=== PATIENT | female | born 1960 | race Caucasian/White ===

== ENCOUNTER 2018-03-18 19:01 | Observation (INO) | payer OTHER ==
--- NOTE | 2018-03-18 19:38 | ED ---
Neurological HPI - HPI Summary HPI Summary: This is hadley, Irvin Enriquez, documenting for attending Dr. Domenico MD. A 57 y/o F presents to ED with RLE weakness and R hand weakness onset this AM. She states it hasn't worsened or improved. Pt took an aspirin [employer]. Associated sx : R-sided numbness, bilat LE edema onset August. Denies any pain with the numbness/weakness, VALDEZ, neck pain, back pain, dizziness, vomiting. Pt is R hand dominant. She's been using her left hand for her ADL. She also notes feeling "foggy" for past few months. She is scheduled for hip surgery in 3 weeks at [facility]. I, Dr. Acuña, personally performed the services described in this documentation as scribed in my presence and it is both accurate and complete. - History of Current Complaint Chief Complaint: EDNeurologicalDeficit Stated Complaint: RT HAMD NUMBNESS/RT SIDE WEAKNESS Time Seen by Provider: 03/18/18 19:29 Hx Obtained From: Patient Onset/Duration: Started hours ago - this AM, Still Present Timing: Constant Onset Severity: Moderate Current Severity: Moderate Pain Intensity: 0 Pain Scale Used: 0-10 Numeric Character: Weak, Numbness/Tingling - Allergy/Home Medications Allergies/Adverse Reactions: Allergies Allergy/AdvReac Type Severity Reaction Status Date / Time Iodinated Contrast- Oral and AdvReac sweating, Verified 03/18/18 22:34 IV Dye nausea ENVIRONMENTAL/ SEASONAL Allergy CONGESTION, Uncoded 02/03/17 08:37 RUNNY NOSE LATEX SENSITIVITY Allergy SKIN Uncoded 03/18/18 22:34 IRRITATION WITH PROLONG USE CLEANING CHEMICALS AdvReac SKIN GETS Uncoded 03/18/18 22:34 ENRIQUE Home Medications: Home Medications Liothyronine TAB* [Cytomel TAB*] 5 mcg PO DAILY 03/18/18 [History Confirmed 05/26] PMH/Surg Hx/FS Hx/Imm Hx Previously Healthy: No Endocrine/Hematology History: Reports: Hx Thyroid Disease - PIPER'S DISEASE Denies: Hx Diabetes Cardiovascular History: Reports: Hx Angina, Other Cardiovascular Problems/ Disorders - TEST DONE FOR CHEST PAIN, NO PROBLEMS DETECTED, HAVE SEEN DR. ALSTON Denies: Hx Coronary Artery Disease, Hx Hypercholesterolemia, Hx Hypertension , Hx Myocardial Infarction, Hx Pacemaker/ICD, Hx Valvular Heart Disease Respiratory History: Reports: Other Respiratory Problems/Disorders - UNABLE TO SLEEP ON BACK - WAKE UP GASPING FOR AIR Denies: Hx Asthma, Hx Chronic Obstructive Pulmonary Disease (COPD) History: Denies: Hx Renal Disease Musculoskeletal History: Reports: Hx Arthritis - OSTEOARTHRITIS, HANDS AND FINGER, Hx Scoliosis, Other Musculoskeletal History - MUSCLE PAIN IN BACK FOR OVER 10 YEARS Denies: Hx Rheumatoid Arthritis, Hx Osteoporosis Sensory History: Reports: Hx Cataracts - BILATERAL, Hx Contacts or Glasses - GLASSES Denies: Hx Hearing Aid Opthamlomology History: Reports: Hx Cataracts - BILATERAL, Hx Contacts or Glasses - GLASSES Neurological History: Denies: Hx Headaches, Other Neuro Impairments/Disorders Psychiatric History: Reports: Hx Anxiety - STRESS FACTORS Denies: Hx Panic Disorder - Cancer History Hx Chemotherapy: No Hx Radiation Therapy: No - Surgical History Surgery Procedure, Year, and Place: BROKEN ANKLE RIGHT-WITH HARDWARE 2013 Hx Anesthesia Reactions: No Infectious Disease History: Denies: Traveled Outside the [place] in Last 30 Days - Family History Known Family History: Positive: Cardiac Disease - CAD - Social History Occupation: Disabled Lives: Alone Hx Substance Use: No Substance Use Type: Reports: None Review of Systems Negative: Vomiting Positive: Edema - bilat LE. Negative: Arthralgia, Myalgia Neurological: Other - neg: dizziness Positive: Weakness - RLE and R hand, Numbness - RLE and R hand. Negative: Headache All Other Systems Reviewed And Are Negative: Yes Physical Exam - Summary Physical Exam Summary: Appearance: Well-appearing, Well-nourished, lying in bed comfortably Skin: Warm, dry, no obvious rash Eyes: sclera anicteric, no conjunctival pallor ENT: mucous membranes moist, pharynx appears normal Neck: Supple, nontender Respiratory: Clear to auscultation, no signs of respiratory distress Cardiovascular: Normal S1, S2. No murmurs. Normal distal pulses in tibial and radial bilaterally. Abdomen: Soft, nontender, normal active bowel sounds present Musculoskeletal: Weakness of RUE from shoulder to elbow and hand, lifts against gravity some distance in the shoulder and hand, but is definitely weaker than on the L. Could not detect any change in her gait. No ataxia. Slight weakness of R hip flexors compared to the L. Deep tendon reflexes at knees and elbows are 2+ and symmetrical. No hyperflexity. Neurological: A&Ox3, awake and alert, mentation is normal, speech is fluent and appropriate. Weakness of RUE from shoulder to elbow and hand, lifts against gravity some distance in the shoulder and hand, but is definitely weaker than on the L. Could not detect any change in her gait. No ataxia. Slight weakness of R hip flexors compared to the L. Deep tendon reflexes at knees and elbows are 2+ and symmetrical. No hyperflexity. Psychiatric: affect is normal, does not appear anxious or depressed Triage Information Reviewed: Yes Vital Signs On Initial Exam: Initial Vitals Temp Pulse Resp BP Pulse Ox 99.3 F 60 16 169/74 99 03/18/18 19:12 03/18/18 19:12 03/18/18 19:12 03/18/18 19:12 03/18/18 19:12 Vital Signs Reviewed: Yes - Theresa Coma Scale Best Eye Response: 4 - Spontaneous Best Motor Response: 6 - Obeys Commands Best Verbal Response: 5 - Oriented Coma Scale Total: 15 Diagnostics - Vital Signs Vital Signs Temp Pulse Resp BP Pulse Ox 03/18/18 19:12 99.3 F 60 16 169/74 99 - Laboratory Result Diagrams: 03/18/18 20:14 03/18/18 20:15 Lab Statement: Any lab studies that have been ordered have been reviewed, and results considered in the medical decision making process. - CT Head CT CT Interpretation: No Acute Changes - IMPRESSION: No intracranial mass effect, hemorrhage or acute large territory infarct. ED physician has reviewed this radiology report. CT Interpretation Completed By: Radiologist - Additional Comments Diagnostic Additional Comments: EKG at 2022: Sinus maged at 50BPM, P waves, QRS complex, and T waves are within normal limits , T waves and intervals are normal, no ischemic changes. This is a normal EKG. Re-Evaluation - Re-Evaluation 1 Re-Evaluation Time: 21:52 Comment: Discussing plans to admit with pt. Course/Dx - Course Course Of Treatment: This is a 57-year-old woman with acute onset of weakness of the right arm and right leg, more so the arm. This was awake of stroke approximately 10 hours prior to presentation here so she certainly is not eligible for TPA. 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 - Differential Dx Differential Diagnoses Neuro: Positive: Cerebrovascular Accident, Intracranial Bleed, Transient Ischemic Attack - Diagnoses Provider Diagnoses: CVA (cerebral vascular accident) - Physician Notifications Discussed Care Of Patient With: Sonu Ramey - neuro Time Discussed With Above Provider: 21:16 Instructed by Provider To: Admit As Inpatient - and get MRI in AM. Discharge - Sign-Out/Discharge Documenting (check all that apply): Patient Departure - ADM - Discharge Plan Condition: Fair Disposition: ADMITTED TO [facility] - Billing Disposition and Condition Condition: FAIR Disposition: Admitted to [facility]
--- OUTSIDE RECORDS SUMMARY | 2018-03-18 20:16 | XMS REPORT ---
:1960 External Reference #:[id number] Author Organization [employer] Address [address] [place] [address] [place] [address] Phone [phone] Care Team Providers Name Role Phone Deepika Mazariegos MD Primary Care Physician Unavailable Payers Type Date Identification Numbers Payment Provider Subscriber Commercial Effective: Policy Number: [id number] Nico Hurley 2011 Group Number: [id number] [address] PayID: [id number] [place] [address] Problems Date Description Provider Status Onset: 08/12/2011 Disorder of breast Allie Marquez M.D. Active Note: noted on 08/2011 mammo, needs repeat in 01/2012 Onset: 08/28/2011 Hypothyroidism Allie Marquez M.D. Active Onset: 09/02/2011 Impaired fasting glycaemia Allie Marquez M.D. Active Onset: 09/02/2011 Hypo-osmolality and or hyponatremia Allie Marquez M.D. Active Onset: 01/13/2012 Spasm Allie Marquez M.D. Active Onset: 01/13/2012 Subjective tinnitus Allie Marquez M.D. 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 Family History Date Family Member(s) Problem(s) Comments General Psoriasis Father due to Diabetes () Father due to Hypertension () Father due to CAD () Father due to Dementia () Father due to His father had OA () and one leg shorter than the other Mother due to Hypertension () Mother due to Dementia () - starting in late 60s Mother due to afib () Mother due to Her mother had OA () and her mother had neck surgery Siblings 5 Social History Type Date Description Comments Marital Status Single Lives With Alone ETOH Use Denies alcohol use Smoking Patient is a former smoker Recreational Drug Use Denies Drug Use Daily Caffeine Consumes on average 2 cups of regular coffee per day Exercise Type/Frequency Does not exercise Due to hip pain General Hx Text lives alone no drugs Allergies, Adverse Reactions, Alerts Date Description Reaction Status Severity Comments 07/15/2011 contrast dye active Medications Medication Date Status Form Strength Qnty SIG Indications Ordering Provider Multivitamins 0000/ Active Tablets 1 po qd Unknown 0000 Levothyroxine / Active Tablets 112mcg 1 by Unknown Sodium 0000 mouth every day Liothyronine / Active Tablets 5mcg take 1 Unknown Sodium 0000 tablet every morning Calcium / Active 1/2 tab Unknown 0000 by mouth twice daily Magnesium / Active Tablets 1 by Unknown 0000 mouth every day Vitamin D / Active Tablets 1 tab by Unknown 0000 mouth everyday Levothyroxine 12/14/ Hx Tablets 112mcg 1 by Nilda Sodium 2017 - mouth Cotton, 12/14/ every day M.D. 2016 Diclofenac Sodium 12/14/ Hx Tablets DR 75mg 180ta take one M85.89 Ok 2017 - bs capsule/t Nadege, 11/21/ ablet by M.DPoly 2018 mouth twice daily as needed for pain, avoid other nsaids Doxycycline 02/06/ Hx Tablets 100mg 20tab 1 by Simi Hernandez 2013 - s mouth Antonio, 12/14/ twice a M.D. 2016 day Azithromycin 11/13/ Hx Tablets 250mg 6tabs two tabs Allie 2013 - day one, Marquez, 01/24/ one daily M.D. 2013 till gone Proair HFA 11/07/ Hx Aerosol 108(90Bas 1unit two puffs 786.2 Allie 2013 - ) s every 4 Marquez, 01/24/ mcg/Act hours as M.D. 2013 needed for wheeze and chest tightness . Aspirin Ec 07/26/ Hx Tablets DR 325mg 90tab 1 po qd Allie 2012 - s prn Jimmy, 12/14/ M.D. 2016 Cyclobenzaprine 07/26/ Hx Tablets 5mg 30tab take 1-2 728.85 Nilda HCL 2012 - tablet by Govind, 12/14/ mouth at M.D. 2016 night as needed Oxycodone HCL 03/24/ Hx Tablets 5mg 60tab 1-2 po q Braeden 2012 - s 4-6 hrprn Nitesh, 07/26/ pain M.D. 2012 Meloxicam 03/10/ Hx Tablets 7.5mg 60tab 1 po bid Allie 2012 - s as needed Jimmy, 01/24/ for pain M.D. 2013 Levothyroxine 02/01/ Hx Tablets 100mcg 90tab 1 by Nilda Sodium 2012 mouth Cotton, 12/14/ every day M.D. 2016 Cosyntropin 12/07/ Hx Solution 0.25mg/ml 1ml 250mcg Allie 2012 - IV/Im Marquez, 02/01/ once M.D. 2012 Azithromycin 08/01/ Hx Tablets 250mg 6tabs two tabs 466.0 Marilee 2011 - day one, , 12/02/ one daily M.D., FACP 2013 till gone Flovent HFA 08/01/ Hx Aerosol 44mcg/Act 1unit 2 puffs 466.0 Marilee 2011 - s twice Macie, 12/02/ daily for M.D., FACP 2013 10 days Guaifenesin ac 08/01/ Hx Syrup 100-10mg/ 100cc 1 tsp by 466.0 Marilee 2011 - 5ML mouth Macie, 12/02/ every day M.D., FACP 2013 every night as needed Erythromycin 07/15/ Hx Ointment 5mg/GM 3.500 apply to 373.11 Allie 2012 - gm eyelid Marquez, 07/26/ four M.D. 2012 times daily for 5 days. prn Levothyroxine 04/08/ Hx Tablets 88mcg 30tab 1 po qd Allie Sodium 2011 - s Marquez, 02/01/ M.D. 2012 Cyclobenzaprine 09/02/ Hx Tablets 5mg 30tab take 1-2 728.85 Allie HCL 2011 - tablet by Jimmy, 01/12/ mouth at M.D. 2011 night as needed Levothyroxine / Hx Tablets 50mcg 39tab 1 1/2 po Allie Sodium 0000 - s shanice Marquez, 04/08/ times a M.D. 2011 week, and 1 po three times a week Fish Oil 00/00/ Hx Capsules 1000mg 30cap 2-3 po qd Unknown 0000 - s 2016 Glucosamine And 00/00/ Hx Capsules 1500/1200 2 po qd Unknown Chondrotin 0000 - mg 2011 Ibuprofen 00/00/ Hx Capsules 200mg prn Unknown - 2012 Glucosamine 00/00/ Hx Capsules 1500Com 1 po qd Unknown Chondroitin 1500 0000 - Complex 2013 Magnesium /00/ Hx Capsules 1 po qd Unknown 0000 - 2012 Percocet 00/ Hx Tablets 5-325mg 60tab 1-2 po Unknown 0000 - s q4-6h prn 2012 Synthroid /00/ Hx Unknown - 2013 Ibuprofen /00/ Hx Tablets 400mg 1 by M85.89 Unknown 0000 - mouth 2017 times a day with food as needed Immunizations CPT Code Status Date Vaccine Reaction Lot # [id number] Given 05/31/2017 Influenza Virus Vaccine, no immediate reaction [id number] Quadrivalent, Split, noted Preservative Free [id number] Given 07/26/2013 Flu Vaccine Split Virus [id number] Preservative Free For Indiv 3Yr Older 17088 Given 05/18/2012 Influenza Virus 3Yrs & Over [id number] Given 07/15/2011 Tdap - [id number] Tetanus/Diptheria/Acellula r Pertussis 06103 Given 07/15/2011 Influenza Virus 3Yrs & [id number] Over Vital Signs Date Vital Result Comment 03/09/2018 Height 65 inches 5'5" Weight 129.25 lb W/ Shoes Heart Rate 62 /min BP Systolic Sitting 144 mmHg Lue Reg Cuff BP Diastolic Sitting 72 mmHg Lue Reg Cuff BMI (Body Mass Index) 21.5 kg/m2 Ejection Fraction 50-55% ECHO 12/04/17 03/07/2018 Height 65 inches 5'5" Weight 125.00 lb Heart Rate 56 /min BP Systolic 140 mmHg BP Diastolic 76 mmHg BMI (Body Mass Index) 20.8 kg/m2 01/05/2018 Height 65.5 inches 5'5.50" Weight 129.38 lb no shoes Heart Rate 64 /min BP Systolic Sitting 168 mmHg lue reg cuff BP Diastolic Sitting 92 mmHg lue reg cuff BMI (Body Mass Index) 21.2 kg/m2 Ejection Fraction 50-55% echo 11/30/2017 11/22/2017 Height 65.5 inches 5'5.50" Weight 132.00 lb w/boots Heart Rate 66 /min BP Systolic Sitting 172 mmHg LA reg cuff BP Diastolic Sitting 88 mmHg LA reg cuff BMI (Body Mass Index) 21.6 kg/m2 Ejection Fraction 50-55% Stress Test 07/14/12 05/31/2017 Height 65.5 inches 5'5.50" Weight 139.00 lb Heart Rate 55 /min BP Systolic Sitting 157 mmHg BP Diastolic Sitting 78 mmHg Respiratory Rate 14 /min Pain Level 4 BMI (Body Mass Index) 22.8 kg/m2 03/08/2017 Height 65.5 inches 5'5.50" Weight 143.00 lb Heart Rate 60 /min BP Systolic 122 mmHg BP Diastolic 74 mmHg Respiratory Rate 15 /min Body Temperature 97.6 F Pain Level 3 BMI (Body Mass Index) 23.4 kg/m2 12/28/2016 Height 65 inches 5'5" Heart Rate 52 /min BP Systolic Sitting 120 mmHg BP Diastolic Sitting 80 mmHg Respiratory Rate 14 /min 12/14/2016 Height 65 inches 5'5" Weight 140.12 lb Heart Rate 52 /min BP Systolic Sitting 114 mmHg BP Diastolic Sitting 74 mmHg Respiratory Rate 14 /min BMI (Body Mass Index) 23.3 kg/m2 01/24/2014 Height 65 inches 5'5" Weight 137.00 lb Heart Rate 60 /min BP Systolic Sitting 142 mmHg BP Diastolic Sitting 86 mmHg Body Temperature 97.5 F BMI (Body Mass Index) 22.8 kg/m2 11/07/2013 Weight 141.00 lb Heart Rate 86 /min BP Systolic Sitting 118 mmHg BP Diastolic Sitting 70 mmHg Respiratory Rate 15 /min Body Temperature 98.7 F 09/29/2013 Height 65 inches 5'5" Weight 136.00 lb Heart Rate 55 /min BP Systolic 144 mmHg BP Diastolic 80 mmHg BMI (Body Mass Index) 22.6 kg/m2 07/26/2013 Weight 137.50 lb Heart Rate 60 /min BP Systolic 160 mmHg BP Diastolic 88 mmHg 03/17/2013 Heart Rate 58 /min BP Systolic Sitting 138 mmHg BP Diastolic Sitting 80 mmHg 03/10/2013 Weight 140.00 lb Heart Rate 60 /min BP Systolic Sitting 140 mmHg BP Diastolic Sitting 80 mmHg 02/01/2013 Weight 142.75 lb Heart Rate 56 /min BP Systolic Sitting 130 mmHg BP Diastolic Sitting 60 mmHg 12/19/2012 Weight 143.00 lb Heart Rate 56 /min BP Systolic Sitting 124 mmHg BP Diastolic Sitting 72 mmHg 12/02/2012 Weight 145.00 lb Heart Rate 58 /min BP Systolic Sitting 122 mmHg BP Diastolic Sitting 74 mmHg 08/01/2012 Height 65 inches 5'5" Weight 146.00 lb Heart Rate 56 /min BP Systolic Sitting 134 mmHg BP Diastolic Sitting 82 mmHg BMI (Body Mass Index) 24.3 kg/m2 07/15/2012 Height 65 inches 5'5" Weight 144.00 lb Heart Rate 54 /min BP Systolic Sitting 120 mmHg BP Diastolic Sitting 78 mmHg BMI (Body Mass Index) 24.0 kg/m2 05/18/2012 Height 65 inches 5'5" Weight 142.00 lb Heart Rate 70 /min BP Systolic Sitting 128 mmHg BP Diastolic Sitting 76 mmHg BMI (Body Mass Index) 23.6 kg/m2 04/08/2012 Height 65 inches 5'5" Weight 139.00 lb Heart Rate 74 /min BP Systolic Sitting 118 mmHg BP Diastolic Sitting 72 mmHg BMI (Body Mass Index) 23.1 kg/m2 03/18/2012 Height 65 inches 5'5" Weight 134.00 lb Heart Rate 58 /min 47at rest, 57 excerise BP Systolic Sitting 152 mmHg BP Diastolic Sitting 60 mmHg O2 % BldC Oximetry 100 % BMI (Body Mass Index) 22.3 kg/m2 01/13/2012 Height 65 inches 5'5" Weight 146.00 lb Heart Rate 74 /min BP Systolic Sitting 120 mmHg BP Diastolic Sitting 70 mmHg BMI (Body Mass Index) 24.3 kg/m2 09/02/2011 Height 65 inches 5'5" Weight 146.00 lb Heart Rate 64 /min BP Systolic Sitting 124 mmHg BP Diastolic Sitting 62 mmHg BMI (Body Mass Index) 24.3 kg/m2 07/15/2011 Height 65 inches 5'5" Weight 141.75 lb Heart Rate 64 /min BP Systolic Sitting 128 mmHg L BP Diastolic Sitting 82 mmHg L BMI (Body Mass Index) 23.6 kg/m2 Results Test Date Test Result H/L Range Note Xray 03/07/2018 MRI Lumbar Spine W/O <pending> Laboratory test finding 05/17/2017 C Reactive Protein < 1.00 mg/L < 5.00 1 Hla B27 12/14/2016 Hla B27 Negative 2 Hla B27 Interp See Comment 3 Laboratory test finding 12/14/2016 C Reactive Protein < 1.00 mg/L < 5.00 4 Cyclic Citrullinated Pep Igg <15.6 U 5 Rheumatoid Factor <15 IU/mL <15 6 Uric Acid 4.7 mg/dL 2.3-6.6 7 Erythrocyte Sed Rate 27 mm/Hr 0-30 8 Cardiolipin Igg/Igm 12/14/2016 Phospholipid Ab IgM, S < 9.4 MPL 9 Phospholipid Ab IgG < 9.4 GPL 10 Laboratory test finding 01/25/2014 Hemoglobin A1c 6.0 % Less than 6.0 11 TSH (Thyroid Stimulating Horm) 1.73 IU/mL 0.34-5.60 Basic Metabolic Panel 01/25/2014 Sodium 136 mmol/L 133-145 Potassium 3.7 mmol/L 3.7-5.6 Chloride 102 mmol/L 101-111 Co2 Carbon Dioxide 29 mmol/L 22-32 Anion Gap 5 mmol/L 2-11 Glucose 89 mg/dL 70-100 Blood Urea Nitrogen 19 mg/dL 6-24 Creatinine 0.69 mg/dL 0.51-0.95 BUN/Creatinine Ratio 27.5 High 8-20 Calcium 9.4 mg/dL 8.6-10.3 Egfr Non- 88.3 >60 Egfr 113.6 >60 12 Laboratory test finding 04/24/2013 TSH (Thyroid Stimulating 0.42 miu/mL 0.34-5.60 Horm) Sodium 128 mmol/L Low 133-145 Basic Metabolic Panel 03/17/2013 Sodium 129 mmol/L Low 133-145 Potassium 4.1 mmol/L 3.5-5.0 Chloride 97 mmol/L Low 101-111 Co2 Carbon Dioxide 26.0 mmol/L 22-32 Anion Gap 6.0 mmol/L 2-11 Glucose 101 mg/dL High 70-100 Blood Urea Nitrogen 12 mg/dL 6-24 Creatinine 0.60 mg/dL 0.50-1.40 BUN/Creatinine Ratio 20.0 8-20 Calcium 9.5 mg/dL 8.1-9.9 Egfr Non- 104.2 >60 Egfr 134.0 >60 13 Laboratory test finding 03/08/2013 Sodium 133 mmol/L 133-145 Urine Osmolality 143 mOsm/kg Low 300-1000 Urine Random Sodium 17 mmol/L Osmolality Serum 280 mOsm/kg Low 281-297 Hemoglobin/Hematacrit 03/08/2013 Hemoglobin 12.9 g/dL 12.0-16.0 Hematocrit 38 % 35-47 Laboratory test finding 03/08/2013 Hemoglobin A1c 5.7 % Less than 6.0 14 Laboratory test finding 03/08/2013 Uric Acid 4.0 mg/dL 2.6-7.2 C Reactive Protein < 0.5 mg/dL Less than 0.5 Erythrocyte Sed Rate 21 mm/Hr 0-30 Rheumatoid Factor <15 IU/mL <15 15 Reyna (Anti-Nuclear AB) Screen Negative Negative Laboratory test finding 01/13/2013 Sodium 129 mmol/L Low 133-145 Urine Osmolality 126 mOsm/kg Low 300-1000 Urine Random Sodium 23 mmol/L Osmolality Serum 281 mOsm/kg 281-297 Laboratory test finding 01/13/2013 Cortisol 11.0 g/dL 16 Acth 12 pg/mL 17 Laboratory test 12/13/2012 Cortisol 28.4 g/dL 18 finding Laboratory test 12/13/2012 Cortisol 20.6 g/dL 19 finding Laboratory test 12/13/2012 Cortisol 7.3 g/dL 20 finding Laboratory test 12/03/2012 TSH (Thyroid 3.53 miu/mL 0.34-5.60 finding Stimulating Horm) Basic Metabolic Panel 12/03/2012 Sodium 127 mmol/L Low 133-145 Potassium 4.5 mmol/L 3.5-5.0 Chloride 94 mmol/L Low 101-111 Co2 Carbon Dioxide 28.0 mmol/L 22-32 Anion Gap 5.0 mmol/L 2-11 Glucose 72 mg/dL 70-100 Blood Urea Nitrogen 11 mg/dL 6-24 Creatinine 0.60 mg/dL 0.50-1.40 BUN/Creatinine Ratio 18.3 8-20 Calcium 9.2 mg/dL 8.1-9.9 Egfr Non- 104.2 >60 Egfr 134.0 >60 21 Laboratory test finding 12/03/2012 Cortisol 6.4 g/dL 22 Laboratory test finding 09/07/2012 Hemoglobin A1c 6.2 % High Less than 6.0 23 Laboratory test finding 09/07/2012 Sodium 131 mmol/L Low 133-145 Osmolality Serum 280 mOsm/kg Low 281-297 Vitamin B12 475 pg/mL 180-914 C Reactive Protein < 0.5 mg/dL Less than 0.5 Laboratory test finding 09/07/2012 Osmolality Serum 280 mOsm/kg Low 281- 297 Sodium 131 mmol/L Low 133-145 Urine Osmolality 132 mOsm/kg Low 300-1000 Urine Random Sodium 23 mmol/L Vitamin B12 475 pg/mL 180-914 Reyna (Anti-Nuclear AB) Screen Negative Negative C Reactive Protein < 0.5 mg/dL Less than 0.5 Erythrocyte Sed Rate 21 mm/Hr 0-30 Hemoglobin A1c 6.2 % High Less than 6.0 24 Laboratory test finding 06/29/2012 TSH (Thyroid Stimulating 4.75 MIU/ML 0.34-5.60 Horm) Sodium 131 mmol/L Low 133-145 Laboratory test finding 03/23/2012 Troponin-I 0 NG/ML 0-0.06 25 Comp Metabolic Panel 03/23/2012 Sodium 130 mmol/L Low 135-145 Potassium 4.4 mmol/L 3.5-5.0 Chloride 96 mmol/L Low 101-111 Co2 (Carbon Dioxide) 28.0 mmol/L 22-32 Anion Gap 6.0 mmol/L 2-11 26 Glucose 96 mg/dL 70-100 BUN 15 mg/dL 6-24 Creatinine 0.7 mg/dL 0.50-1.40 One Over Creatinine 1.42 BUN/Creatinine Ratio 21.4 High 8-20 Calcium 9.1 mg/dL 8.1-9.9 Total Protein 7.1 GM/DL 6.2-8.1 Albumin 4.4 GM/DL 3.6-5.4 Globulin 2.7 GM/DL 2-4 Albumin/Globulin Ratio 1.6 1-3 Bilirubin Total 0.7 mg/dL 0.4-1.5 27 Alkaline Phosphatase 78 U/L 30-110 Alt (SGPT) 38 U/L 14-54 Ast (Sgot) 33 U/L 12-42 eGFR Non- 87.5 > 60 eGFR 112.6 > 60 28 Thyroid Autoantibodies 03/23/2012 Thyroperoxidase 277.7 IU/mL High Less Than Antibody 9.0 Thyroglobulin AB Screen 525 IU/mL <116 29 Laboratory test finding 03/23/2012 TSH 2.83 MIU/ML 0.34-5.60 Thyroxine Free 0.81 ng/dL 0.61-1.24 Laboratory test finding 01/09/2012 Vitamin A (Retinol) 50.1 g/dL 32.5- 78.0 30 Vitamin D, 1,25 Dihydroxy 47 pg/mL 18- 31 CBC Auto Diff 01/09/2012 White Blood Count 5.0 CUMM 4.8-10.8 Red Cell Count 3.44 CUMM Low 4.2-5.4 Hemoglobin 12.5 g/dL 12.0-16.0 Hematocrit 35 % 35-47 Mean Corpuscular Volume 103 um3 High 79-97 Mean Corpuscular Hemoglob 36 pg High 27-31 Mean Corpuscular HGB Cone 35 g/dL 32-36 Redcell Distribution WDTH 13 % 10.5-15 Platelet Count 214 CUMM 150-450 Mean Platelet Volume 9.7 um3 7.4-10.4 Gran % 52.5 % 38-83 Lymph % 35.6 % 25-47 Mononuclear % 6.3 % 1-9 Eosinophil % 4.8 % 0-6 Basophil % 0.8 % 0-2 Abs Lymphs 1.8 1.0-4.8 Abs Mononuclear 0.3 0-0.8 Absolute Neutrophil Count 2.6 1.5-7.7 Abs Eosinophils 0.2 0-0.6 Abs Basophils 0 0-0.2 Laboratory test finding 01/09/2012 Hemoglobin A1c 6.0 % Less Than 6.0 32 , 33 Glucose 92 mg/dL 70-100 32 Laboratory test finding 09/02/2011 Vitamin A (Retinol) 57.8 g/dL 32.5- 78.0 34 Vitamin D, 1,25 Dihydroxy 33 pg/mL 35 CBC Auto Diff 09/02/2011 White Blood Count 6.9 CUMM 4.8-10.8 Red Cell Count 3.58 CUMM Low 4.2-5.4 Hemoglobin 12.7 g/dL 12.0-16.0 Hematocrit 36 % 35-47 Mean Corpuscular Volume 101 um3 High 79-97 Mean Corpuscular Hemoglob 35 pg High 27-31 Mean Corpuscular HGB Cone 35 g/dL 32-36 Redcell Distribution WDTH 13 % 10.5-15 Platelet Count 226 CUMM 150-450 Mean Platelet Volume 10.6 um3 High 7.4-10.4 Gran % 52.4 % 38-83 Lymph % 34.9 % 25-47 Mononuclear % 7.7 % 1-9 Eosinophil % 4.3 % 0-6 Basophil % 0.7 % 0-2 Abs Lymphs 2.4 1.0-4.8 Abs Mononuclear 0.5 0-0.8 Absolute Neutrophil Count 3.6 1.5-7.7 Abs Eosinophils 0.3 0-0.6 Abs Basophils 0.1 0-0.2 Laboratory test finding 09/02/2011 Osmolality 299 MOSMO High 281-297 Sodium 133 mmol/L Low 135-145 Sodium Random Urine 46 mmol/L Osmolality Random Urine 236 MOSMO Low 300-1000 Laboratory test finding 08/24/2011 Hemoglobin A1c 5.8 % Less Than 6.0 36 , 37 Sodium 130 mmol/L Low 135-145 36 CPK (Creatine Kinase) 253 U/L High 0-170 36 CBC Auto Diff 07/16/2011 White Blood Count 6.1 CUMM 4.8-10.8 Red Cell Count 3.61 CUMM Low 4.2-5.4 Hemoglobin 12.9 g/dL 12.0-16.0 Hematocrit 36 % 35-47 Mean Corpuscular Volume 101 um3 High 79-97 Mean Corpuscular Hemoglob 36 pg High 27-31 Mean Corpuscular HGB Cone 35 g/dL 32-36 Redcell Distribution WDTH 13 % 10.5-15 Platelet Count 267 CUMM 150-450 Mean Platelet Volume 9.1 um3 7.4-10.4 Gran % 54.9 % 38-83 Lymph % 32.1 % 25-47 Mononuclear % 6.5 % 1-9 Eosinophil % 5.4 % 0-6 Basophil % 1.1 % 0-2 Abs Lymphs 2.0 1.0-4.8 Abs Mononuclear 0.4 0-0.8 Absolute Neutrophil Count 3.4 1.5-7.7 Abs Eosinophils 0.3 0-0.6 Abs Basophils 0.1 0-0.2 Lipid Profile (Trig/Chol/HDL) 07/16/2011 Triglyceride 40 mg/dL 40-200 Cholesterol 216 mg/dL High Less Than 200 38 High Density Lipoprotein 80 mg/dL High 40-60 39 Cholesterol/HDL Ratio 2.70 AVERAGE 1-4.44 Low Density Lipoprotein 128 mg/dL High Less Than 100 40 Laboratory test finding 07/16/2011 Vitamin D, 1,25 Dihydroxy 40 pg/mL 18- 78 41 TSH 2.73 MIU/ML 0.34-5.60 Comp Metabolic Panel 07/16/2011 Sodium 127 mmol/L Low 135-145 Potassium 4.3 mmol/L 3.5-5.0 Chloride 94 mmol/L Low 101-111 Co2 (Carbon Dioxide) 27.0 mmol/L 22-32 Anion Gap 6.0 mmol/L 2-11 42 Glucose 103 mg/dL High 70-100 BUN 15 mg/dL 6-24 Creatinine 0.7 mg/dL 0.50-1.40 One Over Creatinine 1.42 BUN/Creatinine Ratio 21.4 High 8-20 Calcium 9.3 mg/dL 8.1-9.9 Total Protein 7.1 GM/DL 6.2-8.1 Albumin 4.6 GM/DL 3.6-5.4 Globulin 2.5 GM/DL 2-4 Albumin/Globulin Ratio 1.8 1-3 Bilirubin Total 1.1 mg/dL 0.4-1.5 43 Alkaline Phosphatase 82 U/L 30-110 Alt (SGPT) 35 U/L 14-54 Ast (Sgot) 33 U/L 12-42 eGFR Non- 87.5 > 60 eGFR 112.6 > 60 44 Lipid Panel - [facility] 07/16/2011 CPK (Creatine Kinase) 259 U/L High 0-170 Laboratory test finding 07/15/2011 Cytology 45 - <SEE NOTE> 1 Acute inflammation: >10.00 2 REFERENCE VALUE Not Applicable 3 RESULT: HLA-B27 antigen was not detected. ADDITIONAL INFORMATION Method: Flow Cytometry Performing Laboratory CLIA# [id number] Test Performed by: [facility] - [address] [address] 4 Acute inflammation: >10.00 5 REFERENCE VALUE <20.0 (Negative) Test Performed by: [facility] [address] [place] [address] 6 Test Performed by: [facility] - [address] [address] 7 Please check today 8 Please check today 9 REFERENCE VALUE <15.0 (Negative) 10 REFERENCE VALUE <15.0 (Negative) Test Performed by: [address] [address] 11 Therapeutic target for the treatment of diabetes Mellitus patients is <7% HBA1C, and in selective patients <6.0%.Please refer to [place] [employer] Diabetic care guidelines for further information. 12 Because ethnic data is not always readily available, this report includes an eGFR for both -Americans and non- Americans. The National Kidney Disease Education Program (NKDEP) does not endorse the use of the MDRD equation for patients that are not between the ages of 18 and 70, are , have extremes of body size, muscle mass, or nutritional status, or are non- or non-. According to the National Kidney Foundation, irrespective of diagnosis, the stage of the disease is based on the level of kidney function: Stage Description GFR(mL/min/1.73 m(2)) 1 Kidney damage with normal or decreased GFR 90 2 Kidney damage with mild decrease in GFR 60-89 3 Moderate decrease in GFR 30-59 4 Severe decrease in GFR 15-29 5 Kidney failure <15 (or dialysis) 13 Because ethnic data is not always readily available, this report includes an eGFR for both -Americans and non- Americans. The National Kidney Disease Education Program (NKDEP) does not endorse the use of the MDRD equation for patients that are not between the ages of 18 and 70, are , have extremes of body size, muscle mass, or nutritional status, or are non- or non-. According to the National Kidney Foundation, irrespective of diagnosis, the stage of the disease is based on the level of kidney function: Stage Description GFR(mL/min/1.73 m(2)) 1 Kidney damage with normal or decreased GFR 90 2 Kidney damage with mild decrease in GFR 60-89 3 Moderate decrease in GFR 30-59 4 Severe decrease in GFR 15-29 5 Kidney failure <15 (or dialysis) 14 Therapeutic target for the treatment of diabetes Mellitus patients is <7% HBA1C, and in selective patients <6.0%.Please refer to [place] [employer] Diabetic care guidelines for further information. 15 Test Performed by: [place] [address] Derrick Boat Captain: Smith Crespo III, M.D. 16 AM Cortisol 8.7-22.4 PM Cortisol Less than 10 17 -- REFERENCE VALUE -- 10-60 (a.m. collection) Test Performed by: [place] [address] Derrick Boat Captain: Smith Crespo III, M.D. 18 AM Cortisol 8.7-22.4 PM Cortisol Less than 10 19 AM Cortisol 8.7-22.4 PM Cortisol Less than 10 20 AM Cortisol 8.7-22.4 PM Cortisol Less than 10 21 Because ethnic data is not always readily available, this report includes an eGFR for both -Americans and non- Americans. The National Kidney Disease Education Program (NKDEP) does not endorse the use of the MDRD equation for patients that are not between the ages of 18 and 70, are , have extremes of body size, muscle mass, or nutritional status, or are non- or non-. According to the National Kidney Foundation, irrespective of diagnosis, the stage of the disease is based on the level of kidney function: Stage Description GFR(mL/min/1.73 m(2)) 1 Kidney damage with normal or decreased GFR 90 2 Kidney damage with mild decrease in GFR 60-89 3 Moderate decrease in GFR 30-59 4 Severe decrease in GFR 15-29 5 Kidney failure <15 (or dialysis) 22 AM Cortisol 8.7-22.4 PM Cortisol Less than 10 23 Therapeutic target for the treatment of diabetes Mellitus patients is <7% HBA1C, and in selective patients <6.0%.Please refer to [place] [employer] Diabetic care guidelines for further information. 24 Therapeutic target for the treatment of diabetes Mellitus patients is <7% HBA1C, and in selective patients <6.0%.Please refer to [place] [employer] Diabetic care guidelines for further information. 25 New Reference Range and Interpretation effective 05/12/2002 TnI (ng/ml) INTERPRETATION Less Than 0.06 ng/mL NOT SUPPORTIVE OF DIAGNOSIS OF [place] 0.06 - 0.50 ng/ml INDETERMINATE: SUGGEST SERIAL STUDIES IF CLINICALLY INDICATED. Greater than 0.5 ng/mL CONSISTENT WITH DIAGNOSIS OF AL . 26 Anion gap measurement may be of limited value in the presence of any alkalosis, especially in a combined acid base disorder. . 27 A metabolite of Naproxen, O-desmethylnaproxen, has been shown to interfere with the Jendrassik-Fernie method for measuring total bilirubin. Samples from patients who have taken Naproxen have shown spurious elevation in total bilirubin levels. 28 Because ethnic data is not always readily available, this report includes an eGFR for both -Americans and non- Americans. The National Kidney Disease Education Program (NKDEP) does not endorse the use of the MDRD equation for patients that are not between the ages of 18 and 70, are , have extremes of body size, muscle mass, or nutritional status, or are non- or non-. According to the National Kidney Foundation, irrespective of diagnosis, the stage of the disease is based on the level of kidney function: Stage Description GFR(mL/min/1.73 m(2)) 1 Kidney damage with normal or decreased GFR 90 2 Kidney damage with mild decrease in GFR 60-89 3 Moderate decrease in GFR 30-59 4 Severe decrease in GFR 15-29 5 Kidney failure <15 (or dialysis) 29 If thyroglobulin antibody measurement is performed to assess the reliability of the thyroglobulin assay for thyroid cancer patient follow-up, a thyroglobulin antibody result=/>22 IU/mL may result in falsely decreased thyroglobulin values. The thyroglobulin antibody testing method is an electrochemiluminescence assay manufactured by [employer] and performed on the Modular or Oni system. Values obtained from different assay methods or kits may be different and cannot be used interchangeably. Test Performed by: [facility] [address] Derrick Boat Captain: Smith Crespo III, M.D. 30 Test Performed by: [place] [address] Derrick Boat Captain: Gracia Snowdne, Ph.D. 31 Test Performed by: [place] [address] Derrick Boat Captain: Smith Crespo III, M.D. 32 FASTING 33 THERAPEUTIC TARGET FOR THE TREATMENT OF DIABETES MELLITUS PATIENTS IS <7% HBA1C, AND IN SELECTIVE PATIENTS <6.0%. PLEASE REFER TO [employer] [employer] DIABETIC CARE GUIDELINES FOR FURTHER INFORMATION. 34 Test Performed by: [place] [address] Derrick Boat Captain: Gracia Snowden, Ph.D. 35 Test Performed by: [facility] Dpt of Lab Med and Pathology [address] [place] [address] Derrick Boat Captain: Smith Crespo III, M.D. 36 NON FASTING 37 THERAPEUTIC TARGET FOR THE TREATMENT OF DIABETES MELLITUS PATIENTS IS <7% HBA1C, AND IN SELECTIVE PATIENTS <6.0%. PLEASE REFER TO [employer] DIABETIC CARE GUIDELINES FOR FURTHER INFORMATION. 38 CHOLESTEROL INTERPRETATION: Desirable: Less than 200 MG/DL Borderline-High Risk: 200-239 MG/DL High-Risk: 240 MG/DL and over 39 HDL INTERPRETATION: Undesirable: High Risk: Less than 40 MG/DL Desirable: Low Risk: Greater than 60 MG/DL 40 LDL INTERPRETATION: Low Risk Optimal Level: LDL Less than 100 MG/DL Near or Above Optimal: LDL 100-129 MG/DL Borderline High Risk: LDL 130-159 MG/DL High Risk: LDL 160-189 MG/DL Very High Risk: LDL Greater than 189 MG/DL 41 Test Performed by: [facility] Dpt of Lab Med and Pathology [address] [place] [address] Derrick Boat Captain: Smith Crespo III, M.D. 42 Anion gap measurement may be of limited value in the presence of any alkalosis, especially in a combined acid base disorder. . 43 A metabolite of Naproxen, O-desmethylnaproxen, has been shown to interfere with the Jendrassik-Fernie method for measuring total bilirubin. Samples from patients who have taken Naproxen have shown spurious elevation in total bilirubin levels. 44 Because ethnic data is not always readily available, this report includes an eGFR for both -Americans and non- Americans. The National Kidney Disease Education Program (NKDEP) does not endorse the use of the MDRD equation for patients that are not between the ages of 18 and 70, are , have extremes of body size, muscle mass, or nutritional status, or are non- or non-. According to the National Kidney Foundation, irrespective of diagnosis, the stage of the disease is based on the level of kidney function: Stage Description GFR(mL/min/1.73 m(2)) 1 Kidney damage with normal or decreased GFR 90 2 Kidney damage with mild decrease in GFR 60-89 3 Moderate decrease in GFR 30-59 4 Severe decrease in GFR 15-29 5 Kidney failure <15 (or dialysis) 45 ---- RUN DATE: 07/22/11 [facility] NMI LIVE PAGE 1 RUN TIME: 902 Specimen Inquiry RUN USER: INTERFACE -- Name: MAIRA HURLEY Status: REG REF Re07/15/11 Age/Sex: 51/F Unit#: [id number] [facility] -- Specimen: [id number] Spec Date: 07/15/[address]: Allie Marquez MD Spec Type: CYTOLOGY Received: 07/16/11 Copies to: SOURCE VAGINAL Thin Prep with Reflex HPV Test PATIENT INFORMATION ACTUAL COLLECTION DATE: 07/15/11 ? No POST MENOPAUSAL? Yes HYSTERECTOMY? No PREVIOUS ABNORMAL PAP SMEARS No PATIENT HISTORY: Last menstrual period 2005 ADEQUACY OF SPECIMEN Satisfactory for evaluation * DIAGNOSIS NEGATIVE FOR INTRAEPITHELIAL LESION OR MALIGNANCY * NOTE Specimen sent to [facility] in [place], [place] on 07/16/11 by STACIE at 1207. Results will be reported separately in an addendum. ADDENDUM Addendum #1 Entered: 07/22/11 [employer] (T/A)isk Human Papilloma Virus test results received with preparation and diagnosis completed by [facility], [place], [place]. Results: NEGATIVE High Risk (for types 16, 18, 31, 33, 35, 39, 45, 51, 52, 56, 58, 59, 68) This test was developed and its performance characteristics determined by Laboratory Medicine and Pathology, [facility], [place], [place]. It has not been cleared or approved by the U.S. Food and Drug Administration. -- DEPARTMENT OF PATHOLOGY, [address] [place] [address] [facility] Permit #[id number] Yoan Paredes M.D. Director Ronald Barrientos M.D. Motor Vehicle Assembly Supervisor Dir evgeny -- -- RUN DATE: 07/22/11 [facility] NMI LIVE PAGE 2 RUN TIME: 902 Specimen Inquiry RUN USER: INTERFACE -- Name: MAIRA HURLEY Status: REG REF Re07/15/11 Age/Sex: 51/F Unit#: [id number] Location: [facility] : 58 -- -- CONTINUED -- ADDENDUM (Continued) Test Performed by: [facility] Dpt of lab Med and Pathology [address] [place] [id number] Derrick Boat Captain: Smith Crespo III, M.D. Original hard copy report from [employer] is available upon request by calling Pathology at [phone]. Addendum Review Katie REYNOLDS([facility]) 07/22/11 -- This Pap test was evaluated with the assistance of the [employer] Pap Test Imaging System. The Pap Smear is a screening test designed to aid in the detection of premalign ant and malignant conditions of the uterine cervix. It is not a diagnostic procedure a nd should not be used as the sole means of detecting cervical cancer. Both false- positiv e and false-negative reports do occur. Depending on your risk status, a Pap smear magali uld be obtained and evaluated every one to three years. Initial evaluation performed by Katie REYNOLDS([facility]) 07/16/11 Final Interpretation electronically signed by: Katie REYNOLDS([facility]) 07/16/11 1303 -- -- DEPARTMENT OF PATHOLOGY, [address] [place] [address] [facility] Permit #[id number] Yoan Paredes M.D. Director Ronald Barrientos M.D. Motor Vehicle Assembly Supervisor evgeny -- Procedures Date CPT Code Description Status Comment 03/09/2018 11741 EKG Tracing & Interpretation Completed 11/30/2017 05922 ECHO Transthoracic, Real-Time Completed 2D With Doppler And Color Flow 11/30/2017 53491 ECHO Transthoracic, Real-Time Completed 2D With Doppler And Color Flow 11/22/2017 23891 EKG Tracing & Interpretation Completed 12/21/2016 Bone Mineral Density Test Completed 11/06/2013 Mammogram Completed 06/16/2013 01510 Rad Exam; Ankle Comp Completed 04/24/2013 79514 Short Leg Cast Completed 04/11/2013 22845 Rad Exam; Ankle Limited Completed 04/03/2013 80388 Short Leg Cast Completed 03/21/2013 19499 ORIF Open TX Bimalleolar Ankle Completed FX Includes Internal Fixation 03/17/2013 56747 EKG Tracing & Interpretation Completed 02/10/2013 Mammogram Completed 09/07/2012 Mammogram Completed 07/14/2012 37174 Stress ECHO Completed Interpretation/Report Hospital 07/08/2012 66932 ECHO Transthorasic Realtime 2D Completed W Doppler & Color Flow [facility] 06/28/2012 31476 EKG Tracing & Interpretation Completed 03/18/2012 14880 EKG Tracing & Interpretation Completed 02/11/2012 Mammogram Completed 08/12/2011 Mammogram Completed 12/23/2009 Colonoscopy Completed 08/09/2008 Colonoscopy Completed internal hemorrhoids- Cano otherwise normal Encounters Type Date Location Provider CPT E/M Dx Office Visit 01/05/2018 4:40p [facility] Bashir Maloney, 00390 I35.0 MJose R07.9 Office Visit 11/22/2017 10:20a [facility] Bashir Maloney, 36865 R07.9 Thiago R94.31 Z01.810 Office Visit 05/31/2017 9:00a [facility] [place], [address] M54.5 Alvin Das M16.32 Z79.1 M41.34 Z23 Office Visit 03/08/2017 9:30a [facility] Hern[facility]dez M.D. 16837 M25.562 Naun M16.32 Office Visit 12/28/2016 8:00a [facility] [place] [address] M25.552 Of Alvin Das M85.89 Z79.1 Office Visit 12/14/2016 10:00a [facility] [place] [address] M25.552 Of [facility] Thiago M41.34 M06.4 I73.00 M25.551 Office Visit 01/24/2014 9:00a [facility] Internal Medicine - Allie Marquez M.D. 10595 790.21 [place] 244.9 796.2 276.1 786.2 Office Visit 11/07/2013 10:00a [facility] Internal Medicine - Allie Marquez M.D. 44946 786.2 [place] Office Visit 09/29/2013 11:00a [facility] 88778 824.8 Naun Das Office Visit 07/26/2013 9:40a [facility] Internal Medicine - Allie Marquez M.D. 51925 V70.0 [place] V76.10 790.21 244.9 796.2 V04.81 276.1 728.85 Office Visit 03/17/2013 1:20p [facility] Internal Medicine - Allie Marquez M.D. 72070 729.5 [place] 790.21 244.9 276.1 786.59 Office Visit 03/17/2013 9:45a [facility] 12300 824.6 [facility] Thiago Office Visit 03/10/2013 9:20a [facility] Internal Medicine - Allie Marquez M.D. 48734 276.1 [place] 244.9 836.0 Office Visit 02/08/2013 3:30p [facility] Puckett M.D. 90827 836.0 [facility] Office Visit 02/01/2013 8:40a [facility] Internal Medicine Allie Marquez M.D. 06928 276.1 [place] 244.9 790.21 611.9 Office Visit 12/19/2012 9:40a [facility] Internal Medicine - Allie Marquez M.D. 45545 276.1 [place] 729.5 Office Visit 12/02/2012 10:20a [facility] Internal Medicine Allie Maruqez M.D. 29824 244.9 [place] 276.1 780.79 729.5 Office Visit 08/01/2012 10:40a [facility] Internal Medicine - Marilee Quijano M.D., 63224 466.0 [place] FACP Office Visit 07/15/2012 9:40a [facility] Internal Medicine - Allie Marquez M.D. 88372 276.1 [place] 780.79 244.9 373.11 790.21 Office Visit 07/08/2012 12:30p [facility] Gracia Sanchez M.D. 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 48612 V04.81 [place] 244.9 V04.81 733.6 836.0 780.79 Office Visit 04/08/2012 11:40a [facility] Internal Medicine Allie Marquez M.D. 57598 244.9 [place] 785.1 276.1 Office Visit 03/18/2012 2:00p [facility] Allie Marquez M.D. 19592 244.9 [place] 785.1 786.59 Office Visit 01/13/2012 10:00a [facility] Internal Medicine - Allie Marquez M.D. 21240 611.9 [place] V73.99 244.9 790.21 728.85 388.31 369.70 Office Visit 09/02/2011 1:40p [facility] Internal Medicine - Allie Marquez M.D. 53115 611.9 [place] 790.21 244.9 276.1 728.85 Office Visit 07/15/2011 9:00a DO Not Use [facility]-Donnell Marquez M.D. 56074 V72.31 V76.2 V76.10 244.9 V06.1 V04.81 Plan of Care Future Appointment(s):04/14/2018 11:30 am - Abby Hern[facility]dez M.D. at [facility]04/01/2018 10:15 am - Abby Hernández M.D. at [facility]03/09/2018 - Bashir Maloney M.D.I35.0 Nonrheumatic aortic (valve) stenosisFollow up:one yr with SaraZ01.810 Encounter for preprocedural cardiovascular examination
--- OUTSIDE RECORDS SUMMARY | 2018-03-18 20:17 | XMS REPORT ---
:1960 External Reference #:[id number] Author Organization [facility] Address [address] [place] [address] [place] [address] Phone [phone] Care Team Providers Name Role Phone Deepika Mazariegos MD Primary Care Physician Unavailable Payers Type Date Identification Numbers Payment Provider Subscriber Commercial Effective: Policy Number: [id number] Nico Hurley 2011 Group Number: [id number] [address] PayID: [id number] [place] [address] Problems Date Description Provider Status Onset: 08/12/2011 [...] of regular coffee per day Exercise Type/Frequency Exercises sporadically General Hx Text lives alone no drugs Allergies, Adverse Reactions, Alerts Date Description Reaction Status Severity Comments 07/15/2011 contrast dye active Medications Medication Date Status Form Strength Qnty SIG Indications Ordering Provider Multivitamins 00/00/ Active Tablets 1 po qd Unknown 0000 [...] take one M85.89 Ok 2017 - bs capsule/kushal Light, 11/21/ ablet by M.DPoly 2018 mouth twice [...] 1unit two puffs 786.2 Allie 2013 - e) s every 4 Marquez, 01/24/ mcg/Act hours [...] 60tab 1-2 po q Braeden 2012 - 4-6 hrprn Nitesh, 07/26/ pain M.D. 2012 Meloxicam 03/10/ Hx Tablets 7.5mg 60tab 1 po bid Allie 2012 as needed Jimmy, 01/24/ for pain M.D. 2013 Levothyroxine 02/01/ Hx Tablets 100mcg 90tab 1 by Nilda Sodium 2012 mouth Cotton, 12/14/ every day M.D. 2016 Cosyntropin 12/07/ Hx Solution 0.25mg/ml 1ml 250mcg Allie 2012 - IV/Im Marquez, 02/01/ once M.D. 2012 Azithromycin 08/01/ Hx Tablets 250mg 6tabs two tabs 466.0 Marilee 2011 - day one, Macie, 12/02/ one daily M.D., FACP 2013 till [...] Ointment 5mg/GM 3.500 apply to 373.11 Allie 2011 - gm eyelid Marquez, 07/26/ four M.D. 2012 times daily for 5 days. prn Levothyroxine 04/08/ Hx Tablets 88mcg 30tab 1 po qd Allie Sodium 2011 Marquez, 02/01/ M.D. 2012 Cyclobenzaprine 09/02/ Hx Tablets 5mg 30tab take 1-2 728.85 Allie HCL 2011 tablet by Jimmy, 01/12/ mouth at M.D. 2011 night as needed Levothyroxine / Hx Tablets 50mcg 39tab 1 1/2 po Allie Sodium - s four Marquez, 04/08/ times a M.D. 2011 week, and 1 po three times a week Fish Oil 00/00/ Hx Capsules 1000mg 30cap 2-3 po qd Unknown 0000 - s 2016 Glucosamine And 00/00/ Hx Capsules 1500/1200 2 po qd Unknown Chondrotin 0000 - mg 2011 Ibuprofen /00/ Hx Capsules 200mg prn Unknown - 2012 Glucosamine 00/00/ Hx Capsules 1500Com 1 po qd Unknown Chondroitin 1500 0000 - Complex 2013 Magnesium /00/ Hx Capsules 1 po qd Unknown 0000 - 2012 Percocet /00/ Hx Tablets 5-325mg 60tab 1-2 po Unknown 0000 - s q4-6h prn 2012 Synthroid /00/ Hx Unknown 0000 - 2013 Ibuprofen /00/ Hx Tablets 400mg 1 by M85.89 Unknown 0000 - mouth 2016 times a day with food as needed Immunizations CPT Code Status Date Vaccine Reaction Lot # [id number] Given 05/31/2017 Influenza Virus Vaccine, no immediate reaction [id number] Quadrivalent, Split, noted Preservative Free 43031 Given 07/26/2013 Flu Vaccine Split Virus [id number] Preservative Free For Indiv 3Yr Older 32275 Given 05/18/2012 Influenza Virus 3Yrs & Over 76231 Given 07/15/2011 Tdap - [id number] Tetanus/Diptheria/Acellula r Pertussis 96040 Given 07/15/2011 Influenza Virus 3Yrs & [id number] Over Vital Signs Date Vital Result Comment 03/07/2018 Height 65 inches 5'5" Weight 125.00 [...] Test Date Test Result H/L Range Note Laboratory test finding 05/17/2017 C Reactive Protein [...] mmol/L Low 133-145 Laboratory test finding 03/23/2012 TSH 2.83 MIU/ML 0.34-5.60 Thyroxine Free 0.81 ng/dL 0.61-1.24 Thyroid Autoantibodies 03/23/2012 Thyroperoxidase 277.7 IU/mL High Less Than Antibody 9.0 Thyroglobulin AB Screen 525 IU/mL <116 25 Comp Metabolic Panel 03/23/2012 Sodium 130 [...] > 60 eGFR 112.6 > 60 28 Laboratory test finding 03/23/2012 Troponin-I 0 NG/ML 0-0.06 29 Laboratory test finding 01/09/2012 Hemoglobin A1c 6.0 % Less Than 6.0 30 , 31 Glucose 92 mg/dL 70-100 30 CBC Auto Diff 01/09/2012 White Blood Count [...] Basophils 0 0-0.2 Laboratory test finding 01/09/2012 Vitamin A (Retinol) 50.1 g/dL 32.5- 78.0 32 Vitamin D, 1,25 Dihydroxy 47 pg/mL 18-78 33 Laboratory test finding 09/02/2011 Osmolality 299 MOSMO High 281-297 Sodium 133 mmol/L Low 135-145 Sodium Random Urine 46 mmol/L Osmolality Random Urine 236 MOSMO Low 300-1000 CBC Auto Diff 09/02/2011 White Blood Count [...] Basophils 0.1 0-0.2 Laboratory test finding 09/02/2011 Vitamin A (Retinol) 57.8 g/dL 32.5- 78.0 34 Vitamin D, 1,25 Dihydroxy 33 pg/mL 18-78 35 Laboratory test finding 08/24/2011 Hemoglobin A1c 5.8 % Less Than 6.0 36 , 37 Sodium 130 mmol/L Low 135-145 36 CPK (Creatine Kinase) 253 U/L High 0-170 36 Lipid Panel - JFM 07/16/2011 CPK (Creatine Kinase) 259 U/L High 0-170 Comp Metabolic Panel 07/16/2011 Sodium 127 mmol/L Low 135-145 Potassium 4.3 mmol/L 3.5-5.0 Chloride 94 mmol/L Low 101-111 Co2 (Carbon Dioxide) 27.0 mmol/L 22-32 Anion Gap 6.0 mmol/L 2-11 38 Glucose 103 mg/dL High 70-100 BUN 15 mg/dL 6-24 Creatinine 0.7 mg/dL 0.50-1.40 One Over Creatinine 1.42 BUN/Creatinine Ratio 21.4 High 8-20 Calcium 9.3 mg/dL 8.1-9.9 Total Protein 7.1 GM/DL 6.2-8.1 Albumin 4.6 GM/DL 3.6-5.4 Globulin 2.5 GM/DL 2-4 Albumin/Globulin Ratio 1.8 1-3 Bilirubin Total 1.1 mg/dL 0.4-1.5 39 Alkaline Phosphatase 82 U/L 30-110 Alt (SGPT) 35 U/L 14-54 Ast (Sgot) 33 U/L 12-42 eGFR Non- 87.5 > 60 eGFR 112.6 > 60 40 Lipid Profile (Trig/Chol/HDL) 07/16/2011 Triglyceride 40 mg/dL 40-200 Cholesterol 216 mg/dL High Less Than 200 41 High Density Lipoprotein 80 mg/dL High 40-60 42 Cholesterol/HDL Ratio 2.70 AVERAGE 1-4.44 Low Density Lipoprotein 128 mg/dL High Less Than 100 43 Laboratory test finding 07/16/2011 Vitamin D, 1,25 Dihydroxy 40 pg/mL 18- 78 44 TSH 2.73 MIU/ML 0.34-5.60 CBC Auto Diff 07/16/2011 White Blood Count [...] Abs Basophils 0.1 0-0.2 Laboratory test finding 07/15/2011 Cytology <SEE NOTE> 45 1 Acute inflammation: >10.00 2 REFERENCE VALUE Not Applicable 3 RESULT: HLA-B27 antigen was not detected. ADDITIONAL INFORMATION Method: Flow Cytometry Performing Laboratory CLIA# [id number] Test Performed by: [place] [address] 4 Acute inflammation: >10.00 5 REFERENCE VALUE <20.0 (Negative) Test Performed by: [place] [address] 6 Test Performed by: [place] [address] 7 Please check today 8 Please check today 9 REFERENCE VALUE <15.0 (Negative) 10 REFERENCE VALUE <15.0 (Negative) Test Performed by: [address] [address] 11 Therapeutic target for the treatment of diabetes Mellitus patients is <7% HBA1C, and in selective patients <6.0%.Please refer to [place] [employer] Diabetic care guidelines for further [...] and in selective patients <6.0%.Please refer to [place] [employer] Diabetic care guidelines for further information. 15 Test Performed by: [facility] [address] [place] [address] Apparel Manager: Smith Crespo III, M.D. 16 AM Cortisol 8.7-22.4 PM Cortisol Less than 10 17 -- REFERENCE VALUE -- 10-60 (a.m. collection) Test Performed by: [facility] [address] [place] [address] Apparel Manager: Smith Crespo III, M.D. 18 AM Cortisol [...] and in selective patients <6.0%.Please refer to [place] [employer] Diabetic care guidelines for further information. 24 Therapeutic target for the treatment of diabetes Mellitus patients is <7% HBA1C, and in selective patients <6.0%.Please refer to [place] [employer] Diabetic care guidelines for further information. 25 If thyroglobulin antibody measurement is performed to [...] cannot be used interchangeably. Test Performed by: [place] [address] Apparel Manager: Smith Crespo III, M.D. 26 Anion gap measurement may be of [...] 5 Kidney failure <15 (or dialysis) 29 New Reference Range and Interpretation effective 05/12/2002 TnI (ng/ml) INTERPRETATION Less Than 0.06 ng/mL NOT SUPPORTIVE OF DIAGNOSIS OF MA 0.06 - 0.50 ng/ml INDETERMINATE: SUGGEST SERIAL STUDIES IF CLINICALLY INDICATED. Greater than 0.5 ng/mL CONSISTENT WITH DIAGNOSIS OF [place] . 30 FASTING 31 THERAPEUTIC TARGET FOR THE TREATMENT OF DIABETES MELLITUS PATIENTS IS <7% HBA1C, AND IN SELECTIVE PATIENTS <6.0%. PLEASE REFER TO [place] [employer] DIABETIC CARE GUIDELINES FOR FURTHER INFORMATION. 32 Test Performed by: [place] [address] Apparel Manager: Gracia Snowden, Ph.D. 33 Test Performed by: [place] [address] Apparel Manager: Smith Crespo III, M.D. 34 Test Performed by: [place] [address] Apparel Manager: Gracia Snowden, Ph.D. 35 Test Performed by: [facility] Dpt of Lab Med and Pathology [address] [place] [address] Apparel Manager: Smith Crespo III, M.D. 36 NON FASTING 37 THERAPEUTIC TARGET FOR THE TREATMENT OF DIABETES MELLITUS PATIENTS IS <7% HBA1C, AND IN SELECTIVE PATIENTS <6.0%. PLEASE REFER TO [place] [employer] DIABETIC CARE GUIDELINES FOR FURTHER INFORMATION. 38 Anion gap measurement may be of limited value in the presence of any alkalosis, especially in a combined acid base disorder. . 39 A metabolite of Naproxen, O-desmethylnaproxen, has been shown to interfere with the [place] method for measuring total bilirubin. Samples from patients who have taken Naproxen have shown spurious elevation in total bilirubin levels. 40 Because ethnic data is not always readily [...] 15-29 5 Kidney failure <15 (or dialysis) 41 CHOLESTEROL INTERPRETATION: Desirable: Less than 200 MG/DL Borderline-High Risk: 200-239 MG/DL High-Risk: 240 MG/DL and over 42 HDL INTERPRETATION: Undesirable: High Risk: Less than 40 MG/DL Desirable: Low Risk: Greater than 60 MG/DL 43 LDL INTERPRETATION: Low Risk Optimal Level: LDL Less than 100 MG/DL Near or Above Optimal: LDL 100-129 MG/DL Borderline High Risk: LDL 130-159 MG/DL High Risk: LDL 160-189 MG/DL Very High Risk: LDL Greater than 189 MG/DL 44 Test Performed by: [facility] Lab Med [facility] Pathology [address] [place] [address] Apparel Manager: Smith Crespo III, M.D. 45 ---- RUN DATE: 07/22/11 [facility] NMI LIVE PAGE 1 RUN TIME: 902 Specimen Inquiry RUN USER: INTERFACE -- Name: MAIRA HURLEY Status: REG REF Re07/15/11 Age/Sex: 51/F Unit#: [id number] Location: [facility] : 58 -- Specimen: [id number] SOUT Spec Date: 07/15/[address]: Allie Marquez MD Spec Type: CYTOLOGY Received: 07/16/11 Copies to: SOURCE VAGINAL Thin Prep with Reflex HPV Test PATIENT INFORMATION ACTUAL COLLECTION DATE: 07/15/11 ? No POST MENOPAUSAL? Yes HYSTERECTOMY? No PREVIOUS ABNORMAL PAP SMEARS No PATIENT HISTORY: Last menstrual period 2005 ADEQUACY OF SPECIMEN Satisfactory for evaluation * DIAGNOSIS NEGATIVE FOR INTRAEPITHELIAL LESION OR MALIGNANCY * NOTE Specimen sent to [facility] in [place], [place] on 07/16/11 by O at 1207. Results will be reported separately in an addendum. ADDENDUM Addendum #1 Entered: 07/22/11 [facility] Human Papilloma Virus test results received with preparation and diagnosis completed by [facility], [place], [place]. Results: NEGATIVE High Risk (for types 16, 18, 31, 33, 35, 39, 45, 51, 52, 56, 58, 59, 68) This test was developed and its performance characteristics determined by Laboratory Medicine and Pathology, [facility], [place], [place]. It has not been cleared or approved by the U.S. Food and Drug Administration. -- DEPARTMENT OF PATHOLOGY, [address] [place] [address] [facility] Permit #[id number] Yoan Paredes M.D. Director Ronald Barrientos M.D. Estate Attorney Dir evgeny -- -- RUN DATE: 07/22/11 [facility] NMI LIVE PAGE 2 RUN TIME: 902 Specimen Inquiry RUN USER: INTERFACE -- Name: MAIRA HURLEY Status: REG REF Re07/15/11 Age/Sex: 51/F Unit#: [id number] Location: [facility] : 58 -- -- CONTINUED -- ADDENDUM (Continued) Test Performed by: [facility] Dpt of lab Med and Pathology [address] [place] [address] Apparel Manager: Smith Crespo III, M.D. Original hard copy report from [email or web address] is available upon request by calling Pathology at [phone]. Addendum Review Katie REYNOLDS([facility]) 07/22/11 -- This Pap test was evaluated with the assistance of the CIHIPrep Pap Test Imaging System. The Pap Smear [...] three years. Initial evaluation performed by Katie REYNOLDS([facility]) 07/16/11 Final Interpretation electronically signed by: Katie REYNOLDS([facility]) 07/16/11 1303 -- -- DEPARTMENT OF PATHOLOGY, [address] [place] [address] [facility] Permit #[id number] Yoan Paredes M.D. Director Ronald Barrientos M.D. Estate Attorney Dir evgeny -- Procedures Date CPT Code Description Status Comment 11/30/2017 87952 ECHO Transthoracic, Real-Time Completed 2D With Doppler And Color Flow 11/30/2017 93810 ECHO Transthoracic, Real-Time Completed 2D With Doppler And Color Flow 11/22/2017 82459 EKG Tracing & Interpretation Completed 12/21/2016 Bone Mineral Density Test Completed 11/06/2013 Mammogram Completed 06/16/2013 51054 Rad Exam; Ankle Comp Completed 04/24/2013 18879 Short Leg Cast Completed 04/11/2013 52051 Rad Exam; Ankle Limited Completed 04/03/2013 00112 Short Leg Cast Completed 03/21/2013 38011 ORIF Open TX Bimalleolar Ankle Completed FX Includes Internal Fixation 03/17/2013 31581 EKG Tracing & Interpretation Completed 02/10/2013 Mammogram Completed 09/07/2012 Mammogram Completed 07/14/2012 92670 Stress ECHO Completed Interpretation/Report Hospital 07/08/2012 89821 ECHO Transthorasic Realtime 2D Completed W Doppler & Color Flow [facility] 06/28/2012 64544 EKG Tracing & Interpretation Completed 03/18/2012 95959 EKG Tracing & Interpretation Completed 02/11/2012 Mammogram Completed 08/12/2011 Mammogram Completed 12/23/2009 Colonoscopy Completed 08/09/2008 Colonoscopy Completed internal hemorrhoids- Cano otherwise normal Encounters Type Date Location Provider CPT E/M Dx Office Visit 01/05/2018 4:40p [facility] Bashir Maloney, [address] I35.0 MJose R07.9 Office Visit 11/22/2017 10:20a [facility] Bashir Maloney, [address] R07.9 MJose R94.31 Z01.810 Office Visit 05/31/2017 9:00a [facility] [place], [address]863 M54.5 Alvin Das M16.32 Z79.1 M41.34 Z23 Office Visit 03/08/2017 9:30a [facility] Abby Hernández M.D. 75453 M25.562 C.MRosalina M16.32 Office Visit 12/28/2016 8:00a [facility] [place], [address]234 M25.552 Of [facility] Thiago M85.89 Z79.1 Office Visit 12/14/2016 10:00a [facility] [place], [address] M25.552 Of Alvin Das M41.34 M06.4 I73.00 M25.551 Office Visit 01/24/2014 9:00a [facility] Internal Medicine - Allie Marquez M.D. 38047 790.21 [place] 244.9 796.2 276.1 786.2 Office Visit 11/07/2013 10:00a [facility] Internal Medicine Adriano Marquez M.D. 57603 786.2 [place] Office Visit 09/29/2013 11:00a [facility] [place] 53687 824.8 C.MRosalina Das Office Visit 07/26/2013 9:40a [facility] Internal Risa Marquez M.D. 64865 V70.0 [place] V76.10 790.21 244.9 796.2 V04.81 276.1 728.85 Office Visit 03/17/2013 1:20p [facility] Internal Medicine Adriano Marquez M.D. 64292 729.5 [place] 790.21 244.9 276.1 786.59 Office Visit 03/17/2013 9:45a [facility] [place] 20139 824.6 C.M.Saul Das Office Visit 03/10/2013 9:20a [facility] Internal Risa Marquez M.D. 71014 276.1 [place] 244.9 836.0 Office Visit 02/08/2013 3:30p [facility] Sam Puckett M.D. 12546 836.0 C.M.APoly Office Visit 02/01/2013 8:40a [facility] Internal Medicine - Allie Marquez M.D. 03571 276.1 [place]ord 244.9 790.21 611.9 Office Visit 12/19/2012 9:40a [facility] Internal Medicine - Allie Marquez M.D. 74895 276.1 [place]ord 729.5 Office Visit 12/02/2012 10:20a [facility] Internal Medicine - Allie Marquez M.D. 22749 244.9 [place]ord 276.1 780.79 729.5 Office Visit 08/01/2012 10:40a [facility] Internal Medicine - Marilee Quijano M.D., 24269 466.0 [place] FACP Office Visit 07/15/2012 9:40a [facility] Internal Medicine - Allie Marquez M.D. 03700 276.1 [place] 780.79 244.9 373.11 790.21 Office Visit 07/08/2012 12:30p [facility] Gracia Sanchez M.D. 35185 427.31 Police Manager [facility] 285.9 Office Visit 06/28/2012 9:45a [facility] Gracia Sanchez M.D. 02485 786.50 Police Manager 427.89 Office Visit 05/18/2012 10:40a [facility] Internal Medicine - Allie Marquez M.D. 85923 V04.81 [place]ord 244.9 V04.81 733.6 836.0 780.79 Office Visit 04/08/2012 11:40a [facility] Internal Medicine - Allie Marquez M.D. 23785 244.9 [place]ord 785.1 276.1 Office Visit 03/18/2012 2:00p [facility] Internal Medicine Allie Marquez M.D. 41051 244.9 [place] 785.1 786.59 Office Visit 01/13/2012 10:00a [facility] Internal Medicine Allie Marquez M.D. 57499 611.9 [place] V73.99 244.9 790.21 728.85 388.31 369.70 Office Visit 09/02/2011 1:40p [facility] Internal Medicine Allie Marquez M.D. 46907 611.9 Gifford 790.21 244.9 276.1 728.85 Office Visit 07/15/2011 9:00a DO Not Use [facility] Marquez M.D. 70369 V72.31 V76.2 V76.10 244.9 V06.1 V04.81 Plan of Care Future Appointment(s):04/01/2018 10:15 am - Abby Hernández M.D. at [facility]03/07/2018 - Abby Hernández M.D.M25.552 Pain in left hipNew Xrays:Hips-Bilateral 5+ VWSM54.5 Low back painM16.32 Unilateral osteoarth resulting from hip dysplasia, left hipFollow up:Follow up: 7-10 days before surgery
[2018-03-18 20:22] LABS: ABS Basophils 0.1 10^3/ul (0-0.2); ABS Eosinophils 0.1 10^3/ul (0-0.6); ABS Lymphocytes 2.1 10^3/ul (1.0-4.8); ABS Monocytes 0.5 10^3/ul (0-0.8); ABS Neutrophils 3.7 10^3/ul (1.5-7.7); ABS Nucleated RBC 0 10^3/ul; Eosinophil % 1.7 % (0-6); Hematocrit 36 % (35-47); Hemoglobin 12.6 g/dl (12.0-16.0); Lymphocyte % 31.9 % (25-47); Mean Corpuscular HGB Conc 35 g/dl (31-36); Mean Corpuscular Hemoglobin 35 pg (27-31); Mean Corpuscular Volume 100 fL (80-97); Mean Platelet Volume 8.3 um3 (7.4-10.4); Nucleated Red Blood Cells % 0.1; Platelet Count 266 10^3/ul (150-450); Red Blood Count 3.63 10^6/ul (4.00-5.40); Red Cell Distribution Width 14 % (10.5-15); White Blood Count 6.5 10^3/ul (3.5-10.8)
[2018-03-18 20:34] LABS: INR 0.98 (0.77-1.02)
[2018-03-18 20:43] LABS: EGFR Non-African American 104.3 (>60)
[2018-03-18] MEDS ORDERED: Clopidogrel TAB* 300 MG PO ONE (21:20)
--- NOTE | 2018-03-18 21:20 | HP ---
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 She returned to bed and awoke again at ~ 0300 noticing that her R foot "felt weird" and she couldn't move the toes. Additionally she had difficulty moving her R arm. She uses a crutch with her dominant hand to assist ambulation and was unable to lift the crutch with her R arm nor could she open doors with her R hand. She initially thought she had slept in an odd position. The strength normalized to her RLE and she managed the day using her crutch with her left arm. However, the RUE did not improve and she eventually looked online to discover her symptoms could be a stroke and so presented for evaluation. She denies VALDEZ, change in speech/swallow/vision, or other issues. She has had no chest pain, SOB, palpitations, N/V, spinning dizziness, or light-headedness. PMedHx Gee's thyroiditis advanced OA B hips Ambulatory Orders Multivitamin [Multivitamins] 0.5 tab PO BID 12/13/12 Bard-3 Fatty Acids [Fish Oil] 1,000 iud PO BID 12/13/12 Aspirin EC TAB* [Ecotrin EC TAB*] 2 tab PO Q4H PRN 03/17/13 Ibuprofen TAB* [Motrin TAB*] 600 mg PO Q4H PRN 03/17/13 Levothyroxine TAB* [Synthroid 100 MCG TAB*] 112 mcg PO QAM 03/17/13 Magnesium [Gnp Magnesium] 1 tab PO DAILY 03/20/13 Liothyronine TAB* [Cytomel TAB*] 5 mcg PO DAILY 03/18/18 Allergies Iodinated Contrast- Oral and IV Dye Adverse Reaction (Verified 03/18/18 22:34) sweating, nausea ENVIRONMENTAL/ SEASONAL Allergy (Uncoded 02/03/17 08:37) CONGESTION, RUNNY NOSE LATEX SENSITIVITY Allergy (Uncoded 03/18/18 22:34) SKIN IRRITATION WITH PROLONG USE CLEANING CHEMICALS Adverse Reaction (Uncoded 03/18/18 22:34) SKIN GETS ENRIQUE PSurgHx planned L VALERIE then R VALERIE starting in ~3 weeks SocHx: quit smoking 1986 w/ ~25PYHX; rare alcohol, denies recreational drugs; lives alone; pHD in Nepali but 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; full code status FamHx: Mother: passed 82 from complications of Alzheimer's, HX CVA, AFIB, & OA; Father: passed w/ prostate CA, DM2, CAD, & OA; Brother 1: health unknown; Brother 2: passed in an MVA; Brother 3: healthy; Sister 1: Gee's thyroiditis, OA; Sister 2: OA ROS: as above, otherwise reviewed and all were negative vitals: Vital Signs Temp 37.4 C 03/18/18 19:12 Pulse 60 03/18/18 19:12 Resp 16 03/18/18 19:12 BP 169/74 03/18/18 19:12 Pulse Ox 99 03/18/18 19:12 Intake & Output 03/17/18 03/18/18 03/18/18 23:59 11:59 23:59 Weight 54.431 kg Constitutional: NAD, normally developed, well-nourished white female HEENM: atraumatic; sclera/conjunctiva: anicteric/clear; blephara: normal; auricles: normal; oropharynx: clear, mucosa tacky Neck: soft tissue: non-tender; thyroid: normal Pulmonary: clear to auscultation bilaterally, good aeration, no accessory muscle use CV: RR/RR, normal S1S2, no carotid bruit, no jugular venous distention, 2+ B DP/ PT, 1+ LLE/trace RLE edema Abdominal: soft, non-distended, non-tender, no rebound/guarding/rigidity, normoactive bowel sounds, no hepatosplenomegaly or masses, no costovertebral angle tenderness Musculoskeletal: general: grossly intact, non-tender Integumental: normal appearance and texture of exposed skin Neurological cranial nerves III/IV/: symmetric light reflex, EOMI/PERRLA V: intact facial sensation & mastication VII: intact facial symmetry & eye clench VIII: hearing clinically intact IX/X: symmetric palatal motion, no dysarthria XI: 4+/5 B shoulder shrug XII: midline tongue protrusion, normal voice articulation motor: R-handed LUE: 4+/5 proximally, distally, & 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 strength RUE: 4-/5 proximally, distally, & slubber 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 strength LLE: 4+/5 proximally & distally RLE: 4+/5 proximally & distally coordination finger/nose: slow & less accurate w/o overt ataxia on the R; normal L heal/araiza: limited but equal B, required UE assist 2nd advance B hip OA dysdiadochokinesia: none sensory crude touch: intact globally proprioception: intact BLE DTRs Babinski: downgoing B Psychiatric orientation: AA&O to PPS affect: calm mood: pleasant eye contact: good content: reliable memory: intact responses: timely, appropriate insight: fair to good Testing: Lab Results 03/18/18 03/18/18 03/18/18 Range/Units 20:14 20:14 20:15 WBC 6.5 (3.5-10.8) 10^3/ul RBC 3.63 L (4.00-5.40) 10^6/ul Hgb 12.6 (12.0-16.0) g/dl Hct 36 (35-47) % MCV 100 H (80-97) fL MCH 35 H (27-31) pg MCHC 35 (31-36) g/dl RDW 14 (10.5-15) % Plt Count 266 (150-450) 10^3/ul MPV 8.3 (7.4-10.4) um3 Neut % (Auto) 57.6 (38-83) % Lymph % (Auto) 31.9 (25-47) % [place] % (Auto) 7.3 H (0-7) % Eos % (Auto) 1.7 (0-6) % Baso % (Auto) 1.5 (0-2) % Absolute Neuts (auto) 3.7 (1.5-7.7) 10^3/ul Absolute Lymphs (auto) 2.1 (1.0-4.8) 10^3/ul Absolute Monos (auto) 0.5 (0-0.8) 10^3/ul Absolute Eos (auto) 0.1 (0-0.6) 10^3/ul Absolute Basos (auto) 0.1 (0-0.2) 10^3/ul Absolute Nucleated RBC 0 10^3/ul Nucleated RBC % 0.1 INR (Anticoag Therapy) 0.98 (0.77-1.02) Sodium 129 L (135-145) mmol/L Potassium 3.9 (3.5-5.0) mmol/L Chloride 95 L (101-111) mmol/L Carbon Dioxide 27 (22-32) mmol/L Anion Gap 7 (2-11) mmol/L BUN 12 (6-24) mg/dL Creatinine 0.59 (0.51-0.95) mg/dL Est GFR ( Amer) 126.2 (>60) Est GFR (Non-Af Amer) 104.3 (>60) BUN/Creatinine Ratio 20.3 H (8-20) Glucose 103 H (70-100) mg/dL Lactic Acid (0.5-2.0) mmol/L Calcium 9.8 (8.6-10.3) mg/dL Total Bilirubin 0.50 (0.2-1.0) mg/dL AST 21 (13-39) U/L ALT 23 (7-52) U/L Alkaline Phosphatase 96 (34-104) U/L Troponin I 0.01 (<0.04) ng/mL Total Protein 7.8 (6.4-8.9) g/dL Albumin 4.8 (3.2-5.2) g/dL Globulin 3.0 (2-4) g/dL Albumin/Globulin Ratio 1.6 (1-3) 03/18/18 Range/Units 20:15 WBC (3.5-10.8) 10^3/ul RBC (4.00-5.40) 10^6/ul Hgb (12.0-16.0) g/dl Hct (35-47) % MCV (80-97) fL MCH (27-31) pg MCHC (31-36) g/dl RDW (10.5-15) % Plt Count (150-450) 10^3/ul MPV (7.4-10.4) um3 Neut % (Auto) (38-83) % Lymph % (Auto) (25-47) % [place] % (Auto) (0-7) % Eos % (Auto) (0-6) % Baso % (Auto) (0-2) % Absolute Neuts (auto) (1.5-7.7) 10^3/ul Absolute Lymphs (auto) (1.0-4.8) 10^3/ul Absolute Monos (auto) (0-0.8) 10^3/ul Absolute Eos (auto) (0-0.6) 10^3/ul Absolute Basos (auto) (0-0.2) 10^3/ul Absolute Nucleated RBC 10^3/ul Nucleated RBC % INR (Anticoag Therapy) (0.77-1.02) Sodium (135-145) mmol/L Potassium (3.5-5.0) mmol/L Chloride (101-111) mmol/L Carbon Dioxide (22-32) mmol/L Anion Gap (2-11) mmol/L BUN (6-24) mg/dL Creatinine (0.51-0.95) mg/dL Est GFR ( Amer) (>60) Est GFR (Non-Af Amer) (>60) BUN/Creatinine Ratio (8-20) Glucose (70-100) mg/dL Lactic Acid 0.5 (0.5-2.0) mmol/L Calcium (8.6-10.3) mg/dL Total Bilirubin (0.2-1.0) mg/dL AST (13-39) U/L ALT (7-52) U/L Alkaline Phosphatase (34-104) U/L Troponin I (<0.04) ng/mL Total Protein (6.4-8.9) g/dL Albumin (3.2-5.2) g/dL Globulin (2-4) g/dL Albumin/Globulin Ratio (1-3) ECG, personally reviewed: (19:18:56) sinus bradycardia rate 53, concave upwards J-point elevation V3, mild ST depression V4-6 ECG, personally reviewed: (20:23:09): sinus bradycardia rate 50, concave upwards J-point elevation V3, no ischemia CT brain, personally reviewed: IMPRESSION: NO EVIDENCE FOR GROSS ACUTE INFARCT , MASS EFFECT OR HEMORRHAGE. CTA head/neck: refused 2nd HX non-allergic adverse reaction, will check carotid US in AM Impression: 57F HX Gee's thyroiditis & advanced OA B hips presents with small L cortical CVA Neurologic small L cortical CVA : outside tPA window : aspirin 325mg & clopidogrel 300mg in ED : neurologic checks : supplemental oxygen : lipid profile in AM : check carotid US in AM : MRI brain Wednesday AM : ECHO Wednesday : PT/OT evaluations : supportive care Cardiovascular : telemetry to eval for paroxysmal AFIB Pulmonary stable, no issues Infectious Disease no suspicion of infectious burden Gastroenterology omeprazole for GI prophylaxis Renal strict I&Os Hematologic chronic macrocytosis : denies alcohol : check b12 & folate, if negative consider osmotic fragility for spherocytosis Endocrine Gee's thyroiditis w/ hypothyroidism : continue levothyroxine & leithyroinine Musculoskeletal chronic advanced OA B hips : pain control Lines pIV Admission Rational: inpatient fo r subacute CVA not anticipated to be adequately worked up w/i 48h to allow for discharge DVTp: SCDs & heparin SQ Code Status: full HCP: sister, Zamzam
--- NOTE | 2018-03-18 21:37 | RAD ---
INDICATION: Right-sided arm and leg weakness onset this a.m. COMPARISON: There are no prior studies available for comparison. TECHNIQUE: Contiguous axial sections of the brain were obtained from the skull base to the vertex without contrast. FINDINGS: The ventricles, cisterns and sulci are within normal limits. No significant focal abnormality or mass effect is seen. There is no evidence for hemorrhage. No significant focal osseous abnormality is seen. The visualized portion of the paranasal sinuses and mastoid air cells appear clear. IMPRESSION: NO EVIDENCE FOR GROSS ACUTE INFARCT, MASS EFFECT OR HEMORRHAGE.
[2018-03-18] MEDS ORDERED: Aspirin TAB* 325 MG PO ONE (22:30)
[2018-03-18] MEDS ORDERED: Melatonin 3 MG TAB PO PRN (22:49)
[2018-03-18] MEDS ORDERED: Acetaminophen TAB* 325 MG PO PRN (22:49)
[2018-03-18] MEDS ORDERED: Ondansetron ODT TAB* 4 MG PO PRN (22:49)
[2018-03-18] MEDS ORDERED: Ibuprofen TAB* 400 MG PO PRN (22:53)
[2018-03-18] MEDS ORDERED: oxyCODONE TAB* 5 MG TAB PO PRN (22:57)
[2018-03-18] MEDS ORDERED: NS 0.9% 1000 ML* 1,000 ML IV SCH (23:00)
[2018-03-19] MEDS ORDERED: Omeprazole CAP* 20 MG PO SCH (06:00)
[2018-03-19] MEDS ORDERED: Levothyroxine TAB* 112 MCG TAB PO SCH (06:00)
[2018-03-19] MEDS: Heparin VIAL(*) 5000 UNITS/ML VIAL (FIVE THOUSAND) SUBCUT SCH ×2 (06:21→13:23)
[2018-03-19] MEDS ORDERED: Docusate CAP* 100 MG PO SCH (09:00)
[2018-03-19] MEDS ORDERED: Liothyronine TAB* 5 MCG PO SCH (09:00)
[2018-03-19] MEDS ORDERED: Aspirin EC TAB* 325 MG PO SCH (09:00)
--- NOTE | 2018-03-19 10:43 | RAD ---
INDICATION: Right-sided weakness, possible CVA. COMPARISON: Comparison is made with a prior CT of the brain from March 18, 2018. TECHNIQUE: Sagittal T1, axial T1, T2, susceptibility, FLAIR and diffusion weighted images were obtained. FINDINGS: The ventricles, cisterns and sulci appear to be within normal limits. No significant focal abnormality or mass effect is seen. No areas of restricted diffusion are present. There is no evidence for infarct or hemorrhage. The visualized portion of the paranasal sinuses and mastoid air cells appear clear. There is a 4 mm nodule within the superficial portion of the left parotid gland. IMPRESSION: 1. NO EVIDENCE FOR ACUTE INTRACRANIAL ABNORMALITY. 2. SMALL LEFT PAROTID GLAND NODULE.
[2018-03-19 11:20] LABS: Urine Appearance Clear; Urine Blood Negative (Negative); Urine Color Straw; Urine Ketones Negative (Negative); Urine Protein Negative (Negative); Urine Specific Gravity 1.004 (1.010-1.030); Urine Urobilinogen Negative (Negative)
[2018-03-19 11:45] VITALS: BP 146/61
--- NOTE | 2018-03-19 16:39 | DS ---
CC: Dr. Deepika Calle; Dr. Ramey* DISCHARGE SUMMARY: DATE OF ADMISSION: 03/18/18 DATE OF DISCHARGE: 03/19/18 PRIMARY CARE PROVIDER: Dr. Deepika Calle. DISCHARGE DIAGNOSIS: Right upper extremity weakness due to right radial nerve palsy/crutch palsy. SECONDARY DIAGNOSES: 1. History of Gee's thyroiditis. 2. History of osteoarthritis of both hips. The patient ambulates with crutches. MEDICATIONS AT DISCHARGE: Unchanged from admission and include: 1. Multivitamin 1 tablet daily. 2. Bolton-3 fatty acids 1000 units b.i.d. 3. Aspirin on a p.r.n. basis as previously taken. 4. Ibuprofen on a p.r.n. basis as previously taken. 5. Levothyroxine 112 mcg daily. 7. Magnesium 1 tablet daily. 8. Cytomel 5 mcg daily. LABORATORY DATA AND STUDIES PERFORMED DURING THE HOSPITAL STAY: Included cholesterol profile showed triglycerides of 42, total cholesterol of 151, LDL of 84, and HDL of 58. Vitamin B12 level was 686 and folate of above 20. The patient's MRI of the brain obtained on 03/19/18, impression: "No evidence for acute intracranial abnormality. Small left parotid gland nodule at 4 mm." CONSULTATIONS DURING THE HOSPITAL STAY: Included Dr. Ramey from Neurology. FOLLOWUP AT DISCHARGE: Followup with Dr. Deepika Calle recommended in 4 to 7 days. HOSPITALIZATION COURSE: Maira Hurley is a 57-year-old female with history of severe osteoarthritis of both hips due to which she is ambulating now with crutches. The patient stated that she developed right-sided weakness on as described in Dr. Kelley's admission note. The patient was admitted with a question of CVA. Her MRI of the brain was unremarkable. The patient was noted to have right radial nerve palsy/crutch palsy due to inappropriate use of the crutches by Dr. Ramey. The patient is going to be evaluated by Physical Therapy and advised how to use crutches appropriately. They are also going to be height adjusted by our physical therapist before the patient is discharged home. Medications at discharge are unchanged from admission. By time of discharge, the patient's right arm weakness improved. 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 Otherwise, the patient's physical exam is grossly unchanged from admission. [id number]/[facility] #: [id number] [facility]ITAL[facility]
--- NOTE | 2018-03-19 16:47 | CONS ---
NEUROLOGY CONSULTATION: DATE OF CONSULT: 03/19/18. LOCATION: She is an inpatient, room 434. REFERRING PROVIDER: Dr. Kelley. PRIMARY CARE PROVIDER: Dr. Calle. CHIEF COMPLAINT: Right arm weakness. HISTORY OF PRESENT ILLNESS: Maira Hurley is a 57-year-old woman who presented to the emergency department yesterday with right arm weakness. She was fine when she went to bed at about 9 p.m. which is her typical pattern on 03/17/18. She woke up at about 3 a.m. on 03/18/18 which is also fairly typical for her. She was wiggling her toes and feet, which she often does before she gets out of bed and noted that the toes of the right foot seemed a little bit weak. She reached for her crutches which she has been using since last winter for her chronic osteoarthritis of her hips. She realized that she could not grab the crutch with her right hand or lift it. She reached over with the left hand and was able to get the crutches and sit up. Her right hand and arm was weak. She could raise it above her head, but she just could not seem to use it distally properly. She got up and the sense of weakness in her foot and toes had gone away. She continued through the day with weakness of her right hand and arm. Late in the day, she decided to Google her symptoms and became worried that she might have a stroke. She presented to the emergency room yesterday evening. I reviewed Dr. Javad Kelley's history and physical from last night. 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 The sensory exam was intact. There was no facial weakness or numbness noted. I reviewed Dr. Acuña's emergency room evaluation. He noted weakness of the right upper extremity from the shoulder to the hand, but that she had some antigravity shoulder strength. He also felt there was slight weakness of the right hip flexors compared to the left. She had a CT of the brain in the emergency room interpreted as normal. I reviewed this study and I agree. She did not have any problems with numbness of the face, difficulty with speech , vision, headache, neck pain, limb pain, no numbness or tingling in her arms or legs. She had no difficulty finding words. There is no prior history of cerebrovascular disease. There is no history of diabetes, hypertension, and she is a nonsmoker. She does not take aspirin on a regular basis. Her past medical history is notable for autoimmune thyroiditis. She takes Cytomel and levothyroxine. She has a severe hip arthritis and is scheduled for bilateral hip surgeries or the left one coming up within a month. She was taking diclofenac regularly, but has not been taking it lately. She has only been taking Tylenol for pain control. PAST MEDICAL HISTORY: Notable for a fractured right ankle 4 years ago, requiring open reduction and internal fixation; hypothyroidism; she was evaluated for a chest pain a couple of years ago with a negative cardiac evaluation. There is no history of heart disease otherwise, lung disease, renal , GI, or disorders. She has had cataracts extracted in the past. There is no history of head trauma, epilepsy, meningitis. She has been under a lot of stress preparing for her surgeries and having a lot of work done on her house. She has been on her feet a lot for the last week or 2 because of that. She has been using crutches since last winter. ALLERGIES: She is allergic to IV CONTRAST DYE. FAMILY HISTORY: Noncontributory. PHYSICAL EXAM: She is well nourished and well hydrated. Temperature 98.9 by temporal skin, blood pressure most recently 146/61, heart rates running in the 50s and regular, respiratory rate 16. Oxygen saturation is 100% on room air. Heart is in a regular rate and rhythm without murmurs. Lungs are clear bilaterally. Carotid pulses are intact and there are no bruits. She has bilateral distal lower extremity edema, which she says is chronic. There is pain with movement of her hips. Neurological Exam: Pupils react equally from 3 to 2 mm. Eye movements are normal. Visual wallace are full to confrontation. There is no ptosis. Facial musculature is symmetric. Facial sensation to light touch, pin, and temperature is symmetric. Palate and tongue appear normal and there is no dysarthria. Tongue protrudes in the midline. Hearing is intact bilaterally. Neck muscle, bulk, and strength is normal. Neck range of motion is normal and nonpainful. On sensory exam, there is intact vibration, temperature, light touch, and pin discrimination proximally and distally in upper and lower extremities. Reflexes are grade 2 at the biceps, brachioradialis, and knees. They are trace at the ankles. Left triceps reflex is normal, right triceps reflex is absent. Motor exam reveals normal strength and tone proximally and distally in the left upper extremity and the lower extremities, but there is pain with testing about the hips. In the right upper extremity, she has normal biceps strength, wrist flexion strength, and finger flexion strength, as well as normal deltoid strength. She has barely antigravity triceps weakness on the right, no contraction of the brachioradialis, and she has a grade 2 right wrist extensor weakness. She can bring the wrist to just about the horizontal, but cannot maintain it there. She has a grade 3 finger extensor weakness. With wrist held in neutral position, she has a reasonably good dorsal interossei strength. She is alert and oriented and an excellent detailed historian. Memory is intact and language is fluent. There is no word finding difficulty. She has good attention, concentration, and adequate fund of knowledge. DIAGNOSTIC STUDIES/LAB DATA: Includes a CBC on admission notable for MCV of 100 , but otherwise normal CBC. Chemistry is notable for a sodium of 129 yesterday , glucose 103, normal chemistry profile otherwise. Vitamin B12 level this morning normal at 686 and folate greater than 20. Cholesterol 151, LDL 84. MRI of the brain was performed earlier this morning and is interpreted by the radiologist, Dr. Lacey as normal. There is a left parotid nodule. I reviewed the images and I agree. I see no evidence of an acute or chronic infarct. Brain CT was also reviewed and is normal. IMPRESSION AND PLAN: Impression is that of a right axillary radial nerve palsy. This typically occurs from improper use of crutches. I explained my impression to the patient. I advised that she will probably get a full recovery of function, but some patients with severe neuropathies do not get a full recovery of function. I told if it is not significantly better in a couple of weeks, I want to see her in followup in my office. I advised that she avoid using the crutch up into her axilla and to make sure that it is just planted against the ribcage and not into her armpit. I do not think she needs further workup for a cerebrovascular disease nor antiplatelet therapy. I discussed my impression with Dr. Bey. I think the patient can be discharged home at this point. [id number]/[facility] #: [id number] MOUNA
== END 2018-03-19 15:15 | disposition home or self-care (01) ==
LOC: ED 19:01 → MEDTELE 21:12 → INTOOBSV 21:12
PROVIDERS: ADMIT Hospitalist; ATTEND Internal Medicine
DX: M62.81 Muscle weakness (generalized) (principal); G58.9 Mononeuropathy, unspecified; E06.3 Autoimmune thyroiditis; M16.0 Bilateral primary osteoarthritis of hip; Z79.82 Long term (current) use of aspirin
CPT/HCPCS: 36415; 70450; 70551; 80053; 80061; 81003; 82607; 82746; 83036; 83605; 84484; 85025; 85610; 85730; 93005; 99284; A9270-GY; G0378; J1644

== ENCOUNTER 2018-07-06 15:56 | Emergency (ER) | payer OTHER ==
--- NOTE | 2018-07-06 17:17 | ED ---
Lower Extremity - HPI Summary HPI Summary: A 58 y/o female presents to [facility] with a chief complaint of right leg blood clot. She rates her pain as 1/10. At Dr. Hernández's office she had a sonogram of her right leg and was referred to [facility]. She has a Hx of edema and a FHx of blood clots. She claims that she is on coumadin. Her INR one week ago was 1. She states that physical therapy aggravated her leg. She reports a fever of 100.2 and right leg edema but denies Chills, Erythema (eyes), Sore throat, Chest pain, Shortness of Breath, Cough, Abdominal pain, Vomiting, Nausea, Dysuria, Hematuria, Myalgia, Rash and Dizziness. - History of Current Complaint Chief Complaint: EDGeneral Stated Complaint: POSSITIVE DVT COMMING FROM IMG Hx Obtained From: Patient Mechanism Of Injury: Unknown Onset of Pain: Hours, Prior to Arrival Onset/Duration: Hours Severity Initially: Mild Severity Currently: Mild Pain Intensity: 1 Pain Scale Used: 0-10 Numeric Timing: Constant Location: Is Discrete @ - right leg Associated Signs And Symptoms: Positive: Swelling, Fever. Negative: Abdominal Pain - Allergies/Home Medications Allergies/Adverse Reactions: Allergies Allergy/AdvReac Type Severity Reaction Status Date / Time diclofenac Allergy Edema Verified 06/23/18 13:43 latex AdvReac Unknown See Comment Verified 06/25/18 16:42 Latex, Natural Rubber AdvReac Unknown See Comment Verified 06/25/18 16:42 Iodinated Contrast- Oral and AdvReac sweating, Verified 06/23/18 13:43 IV Dye nausea ENVIRONMENTAL/ SEASONAL Allergy CONGESTION, Uncoded 06/23/18 13:43 RUNNY [employer] CHEMICALS AdvReac SKIN GETS Uncoded 06/23/18 13:43 ENRIQUE PMH/Surg Hx/FS Hx/Imm Hx Endocrine/Hematology History: Reports: Hx Thyroid Disease - PIPER'S DISEASE Denies: Hx Diabetes Cardiovascular History: Reports: Hx Angina, Other Cardiovascular Problems/ Disorders - TEST DONE FOR CHEST PAIN, NO PROBLEMS DETECTED, HAVE SEEN DR. ALSTON Denies: Hx Coronary Artery Disease, Hx Hypercholesterolemia, Hx Hypertension , Hx Myocardial Infarction, Hx Pacemaker/ICD, Hx Valvular Heart Disease Respiratory History: Reports: Hx Sleep Apnea - ?UNKNOWN PER PATIENT, Other Respiratory Problems/Disorders - UNABLE TO SLEEP ON BACK - WAKE UP GASPING FOR AIR Denies: Hx Asthma, Hx Chronic Obstructive Pulmonary Disease (COPD) History: Denies: Hx Renal Disease Musculoskeletal History: Reports: Hx Arthritis - OSTEOARTHRITIS, HANDS AND FINGER, Hx Scoliosis, Hx Tendonitis - 10 YEARS AGO ELBOWS, Other Musculoskeletal History - MUSCLE PAIN IN BACK FOR OVER 10 YEARS Denies: Hx Rheumatoid Arthritis, Hx Osteoporosis Sensory History: Reports: Hx Cataracts - BILATERAL, Hx Contacts or Glasses - GLASSES Denies: Hx Eye Injury, Hx Eye Prosthesis, Hx Glaucoma, Hx Legally Blind, Hx Macular Degeneration, Hx Vision Problem, Hx Deafness, Hx Hearing Aid Opthamlomology History: Reports: Hx Cataracts - BILATERAL, Hx Contacts or Glasses - GLASSES Denies: Hx Eye Injury, Hx Eye Prosthesis, Hx Glaucoma, Hx Legally Blind, Hx Macular Degeneration, Hx Vision Problem Neurological History: Denies: Hx Headaches, Other Neuro Impairments/Disorders Psychiatric History: Reports: Hx Anxiety - STRESS FACTORS Denies: Hx Panic Disorder - Cancer History Hx Chemotherapy: No Hx Radiation Therapy: No - Surgical History Surgery Procedure, Year, and Place: BROKEN ANKLE RIGHT-WITH HARDWARE 2013 Hx Anesthesia Reactions: No - Immunization History Date of Tetanus Vaccine: utd` Date of Influenza Vaccine: fall 2016 Infectious Disease History: No Infectious Disease History: Denies: Hx Clostridium Difficile, Hx Hepatitis, Hx Human Immunodeficiency Virus (HIV), Hx of Known/Suspected MRSA, Hx Shingles, Hx Tuberculosis, History Other Infectious Disease, Traveled Outside the [place] in Last 30 Days - Family History Known Family History: Positive: Cardiac Disease - CAD, Blood Disorder - Social History Alcohol Use: None Hx Substance Use: No Substance Use Type: Reports: None Hx Tobacco Use: Yes Smoking Status (MU): Former Smoker Amount Used/How Often: 1 PPD+ X OFF AND ON SINCE TEEN Have You Smoked in the Last Year: No Review of Systems Positive: Fever. Negative: Chills Negative: Erythema Negative: Sore Throat Negative: Chest Pain Negative: Shortness Of Breath, Cough Negative: Abdominal Pain, Vomiting, Nausea Negative: dysuria, hematuria Positive: Edema - right leg. Negative: Myalgia Negative: Rash Neurological: Negative - dizziness All Other Systems Reviewed And Are Negative: Yes Physical Exam - Summary Physical Exam Summary: Constitutional: Well-developed, Well-nourished, Alert. (-) Distressed Skin: Warm, Dry HENT: Normocephalic; Atraumatic Eyes: Conjunctiva normal Neck: Musculoskeletal ROM normal neck. (-) JVD, (-) Stridor, (-) Tracheal deviation Cardio: Rhythm regular, rate normal, Heart sounds normal; Good distal pulses and effusion; The pedal pulses are 2+ and symmetric. Radial pulses are 2+ and symmetric. (-) Murmur Pulmonary/Chest wall: Effort normal. (-) Respiratory distress, (-) Wheezes, (-) Rales Abd: Soft, (-) epigastric tenderness, (-) Distension, (-) Guarding, (-) Rebound Musculoskeletal: right leg below the knee swollen and TTP Lymph: (-) Cervical adenopathy Neuro: Alert, Oriented x3 Psych: Mood and affect Normal Triage Information Reviewed: Yes Vital Signs On Initial Exam: Initial Vitals Temp Pulse Resp BP Pulse Ox 100.2 F 68 20 146/64 100 07/06/18 16:18 07/06/18 16:18 07/06/18 16:18 07/06/18 16:18 07/06/18 16:18 Vital Signs Reviewed: Yes Diagnostics - Vital Signs Vital Signs Temp Pulse Resp BP Pulse Ox 07/06/18 16:18 100.2 F 68 20 146/64 100 - Laboratory Result Diagrams: 07/06/18 18:45 07/06/18 18:45 Lab Statement: Any lab studies that have been ordered have been reviewed, and results considered in the medical decision making process. Lower Extremity Course/Dx - Course Course Of Treatment: A 58 y/o female presents to [facility] with a chief complaint of right leg blood clot. She rates her pain as 1/10. At Dr. Hernández's office she had a sonogram of her right leg and was referred to [facility]. She has a Hx of edema and a FHx of blood clots. She claims that she is on coumadin. Her INR one week ago was 1. She states that physical therapy aggravated her leg. She reports a fever of 100.2 and right leg edema but denies Chills, Erythema (eyes) , Sore throat, Chest pain, Shortness of Breath, Cough, Abdominal pain, Vomiting , Nausea, Dysuria, Hematuria, Myalgia, Rash and Dizziness. In the ED course the patient was given tylenol PO and Xarelto PO. Discussed patient with Dr. Hernández. We agreed upon discontinuing coumadin and starting xarelto. Dx: subtheraputic INR, deep vein thrombus of right leg. The patient was instructed to follow up with Dr. Hernández in 1 day. She will be discharged home with a prescription for Xarelto. She was instructed to return to the ED for SOB or CP and is agreeable with this plan. - Diagnoses Provider Diagnoses: Subtherapeutic international normalized ratio (INR), Deep vein thrombosis of right lower extremity - Physician Notifications Discussed Care Of Patient With: Abby Hernández Time Discussed With Above Provider: 20:00 Instructed by Provider To: Other - Discussed patient with Dr. Hernández. We agreed upon discontinuing coumadin and starting xarelto. The patient was instructed to follow up with Dr. Hernández in 1 day. Discharge - Sign-Out/Discharge Documenting (check all that apply): Patient Departure - DC - Discharge Plan Condition: Stable Disposition: HOME Prescriptions: Rivaroxaban TAB(*) [Xarelto 15 mg(*)] 15 mg PO DAILY #42 tab Patient Education Materials: Deep Vein Thrombosis (ED) Referrals: Deepika Calle MD [Primary Care Provider] - (3-5 days) Abby Hernández MD [Medical Doctor] - 1 Day Additional Instructions: Follow up with Dr. Hernández tomorrow. RETURN TO THE EMERGENCY DEPARTMENT FOR CHANGING OR WORSENING SYMPTOMS - Billing Disposition and Condition Condition: STABLE Disposition: Home - Attestation Statements Document Initiated by Tulio: Yes Documenting Scribe: Dane Murcia Provider For Whom Tulio is Documenting (Include Credential): Fernando Cortés MD Scribe Attestation: Dane Chavarria scribed for Fernando Cortés MD on 07/18/18 at 1032. Scribe Documentation Reviewed: Yes Provider Attestation: The documentation as recorded by the Dane butcher accurately reflects the service I personally performed and the decisions made by , Fernando Cortés MD Status of Scribe Document: Viewed
[2018-07-06] MEDS ORDERED: Acetaminophen TAB* 325 MG PO ONE (18:29)
[2018-07-06 19:00] LABS: Hematocrit 27 % (35-47); Hemoglobin 9.5 g/dl (12.0-16.0); Mean Corpuscular HGB Conc 35 g/dl (31-36); Mean Corpuscular Hemoglobin 35 pg (27-31); Mean Corpuscular Volume 101 fL (80-97); Mean Platelet Volume 7.4 fL (7.4-10.4); Platelet Count 438 10^3/ul (150-450); Red Blood Count 2.71 10^6/ul (4.00-5.40); Red Cell Distribution Width 15 % (10.5-15); White Blood Count 6.1 10^3/ul (3.5-10.8)
[2018-07-06 19:08] LABS: INR 1.14 (0.77-1.02)
[2018-07-06 19:17] LABS: EGFR Non-African American 128.8 (>60)
[2018-07-06] MEDS ORDERED: Rivaroxaban TAB(*) 15 MG PO ONE (20:00)
[2018-07-06 20:55] VITALS: BP 143/58
== END 2018-07-06 20:53 | disposition home or self-care (01) ==
LOC: ED 15:56
DX: R79.1 Abnormal coagulation profile (principal); I82.401 Acute embolism and thrombosis of unspecified deep veins of right lower extremity; R60.9 Edema, unspecified; R50.9 Fever, unspecified; Z91.040 Latex allergy status; Z87.891 Personal history of nicotine dependence
CPT/HCPCS: 36415; 80053; 85027; 85610; 85730; 99282; A9270-GY

== ENCOUNTER 2018-07-28 12:16 | Emergency (ER) | payer OTHER ==
--- NOTE | 2018-07-28 13:25 | ED ---
Syncope/Near Syncope - HPI Summary HPI Summary: A 58 y/o female presents to ED c/o near blacking out episodes and dizziness. In the ED room, the patient has a pulse of 59 BPM, O2 saturation of 100%, and blood pressure of 129/62. As per triage, "started on Xarelto in June for DVT , thinks shes havign a side effect to it, 1.5hour after takign it, started to black out, started about 3/4 days ago". According to the patient, she suspects her prescriptions for Xarelto for her symptoms. She stated that she has been near blacking out and felt dizzy for the past few mornings after taking her medication. She stated that after her hip surgery, there her left calf was swollen, in which she came to [facility] for evaluation. A blood clot was found in her right calf found via doppler study. She stated that she does not completely black out, she feels the need to sit down and feels like she is going to pass out. She noted that it gets dark and in a few minutes it passes and she gets better. She denies any SOB, chest pain, heart or lung problems. - History Of Current Complaint Chief Complaint: EDSyncope Time Seen by Provider: 07/28/18 12:58 Hx Obtained From: Patient Onset/Duration: Sudden Onset, Lasting Days, Still Present Timing: Intermittent Episode Lasting Activity At Onset: At Rest Associated Head Trauma: No Aggravating Factor(s): Nothing Alleviating Factor(s): Nothing Associated Signs And Symptoms: Negative - Allergies/Home Medications Allergies/Adverse Reactions: Allergies Allergy/AdvReac Type Severity Reaction Status Date / Time diclofenac Allergy Edema Verified 07/28/18 12:21 latex AdvReac Unknown See Comment Verified 07/28/18 12:21 Latex, Natural Rubber AdvReac Unknown See Comment Verified 07/28/18 12:21 Iodinated Contrast- Oral and AdvReac sweating, Verified 07/28/18 12:21 IV Dye nausea ENVIRONMENTAL/ SEASONAL Allergy CONGESTION, Uncoded 07/28/18 12:21 RUN[employer] CHEMICALS AdvReac SKIN GETS Uncoded 07/28/18 12:21 ENRIQUE PMH/Surg Hx/FS Hx/Imm Hx Endocrine/Hematology History: Reports: Hx Thyroid Disease - PIPER'S DISEASE Denies: Hx Diabetes Cardiovascular History: Reports: Hx Angina, Other Cardiovascular Problems/ Disorders - TEST DONE FOR CHEST PAIN, NO PROBLEMS DETECTED, HAVE SEEN DR. ALSTON Denies: Hx Coronary Artery Disease, Hx Hypercholesterolemia, Hx Hypertension , Hx Myocardial Infarction, Hx Pacemaker/ICD, Hx Valvular Heart Disease Respiratory History: Reports: Hx Sleep Apnea - ?UNKNOWN PER PATIENT, Other Respiratory Problems/Disorders - UNABLE TO SLEEP ON BACK - WAKE UP GASPING FOR AIR Denies: Hx Asthma, Hx Chronic Obstructive Pulmonary Disease (COPD) History: Denies: Hx Renal Disease Musculoskeletal History: Reports: Hx Arthritis - OSTEOARTHRITIS, HANDS AND FINGER, Hx Scoliosis, Hx Tendonitis - 10 YEARS AGO [place], Other Musculoskeletal History - MUSCLE PAIN IN BACK FOR OVER 10 YEARS Denies: Hx Rheumatoid Arthritis, Hx Osteoporosis Sensory History: Reports: Hx Cataracts - BILATERAL, Hx Contacts or Glasses - GLASSES Denies: Hx Eye Injury, Hx Eye Prosthesis, Hx Glaucoma, Hx Legally Blind, Hx Macular Degeneration, Hx Vision Problem, Hx Deafness, Hx Hearing Aid Opthamlomology History: Reports: Hx Cataracts - BILATERAL, Hx Contacts or Glasses - GLASSES Denies: Hx Eye Injury, Hx Eye Prosthesis, Hx Glaucoma, Hx Legally Blind, Hx Macular Degeneration, Hx Vision Problem Neurological History: Denies: Hx Headaches, Other Neuro Impairments/Disorders Psychiatric History: Reports: Hx Anxiety - STRESS FACTORS Denies: Hx Panic Disorder - Cancer History Hx Chemotherapy: No Hx Radiation Therapy: No - Surgical History Surgery Procedure, Year, and Place: BROKEN ANKLE RIGHT-WITH HARDWARE 2013 Hx Anesthesia Reactions: No - Immunization History Date of Tetanus Vaccine: utd` Date of Influenza Vaccine: fall 2016 Infectious Disease History: No Infectious Disease History: Denies: Hx Clostridium Difficile, Hx Hepatitis, Hx Human Immunodeficiency Virus (HIV), Hx of Known/Suspected MRSA, Hx Shingles, Hx Tuberculosis, History Other Infectious Disease, Traveled Outside the [place] in Last 30 Days - Family History Known Family History: Positive: Cardiac Disease - CAD, Blood Disorder - Social History Alcohol Use: Rare Hx Substance Use: No Substance Use Type: Reports: None Hx Tobacco Use: Yes Smoking Status (MU): Former Smoker Amount Used/How Often: 1 PPD+ X OFF AND ON SINCE TEEN Have You Smoked in the Last Year: No Review of Systems Negative: Fever Negative: Chest Pain Negative: Shortness Of Breath Neurological: Other - POSITIVE: Dizziness, near blacking out All Other Systems Reviewed And Are Negative: Yes Physical Exam - Summary Physical Exam Summary: Appearance: Well appearing, no pain distress. Normal exam. Skin: warm, dry, reflects adequate perfusion Head/face: normal Eyes: EOMI, SHAVON ENT: normal Neck: supple, non-tender Respiratory: CTA, breath sounds present Cardiovascular: RRR, pulses symmetrical Abdomen: non-tender, soft Musculoskeletal: normal, strength/ROM intact Neuro: normal, sensory motor intact, A&Ox3 Triage Information Reviewed: Yes Vital Signs On Initial Exam: Initial Vitals Temp Pulse Resp BP Pulse Ox 99.2 F 63 16 117/96 100 07/28/18 12:19 07/28/18 12:19 07/28/18 12:19 07/28/18 12:19 07/28/18 12:19 Vital Signs Reviewed: Yes Diagnostics - Vital Signs Vital Signs Temp Pulse Resp BP Pulse Ox 07/28/18 12:44 58 129/62 99 07/28/18 12:43 58 98 07/28/18 12:19 99.2 F 63 16 117/96 100 - Laboratory Result Diagrams: 07/28/18 13:44 07/28/18 13:44 Lab Statement: Any lab studies that have been ordered have been reviewed, and results considered in the medical decision making process. - Radiology CXR Radiology Interpretation Completed By: Radiologist Summary of Radiographic Findings: Mild degree of cardiomegaly similar in appearance to the previous chest x-ray in this otherwise nonacute single view portable AP chest x-ray. ED PHYSICIAN REVIEWED THIS RADIOLOGY REPORT. - EKG 1229 Cardiac Rate: Bradycardia - 56 BPM EKG Rhythm: Sinus Bradycardia - 56 BPM Summary of EKG Findings: no acute changes Course/Dx Course Of Treatment: A 58 y/o female presents to ED c/o near blacking out episodes and dizziness. In the ED room, the patient has a pulse of 59 BPM, O2 saturation of 100%, and blood pressure of 129/62. According to the patient, she suspects her prescriptions for Xarelto for her symptoms. She stated that she has been near blacking out and felt dizzy for the past few mornings after taking her medication. She stated that after her hip surgery, there her left calf was swollen, in which she came to [facility] for evaluation. A blood clot was found in her right calf found via doppler study. She stated that she does not completely black out, she feels the need to sit down and feels like she is going to pass out. She noted that it gets dark and in a few minutes it passes and she gets better. She denies any SOB, chest pain, heart or lung problems. Physical examination was unremarkable. A CXR revealed mild degree of cardiomegaly similar in appearance to the previous chest x-ray in this otherwise nonacute single view portable AP chest x-ray. An EKG revealed sinus bradycardia at a rate of 56 BPM, no acute changes. Hematology and Chemistry screens were done. No significant laboratory abnormality was found. In the ED course, the patient received no medications. Patient will be discharged with a diagnosis of dizziness. Patient is to follow up with primary care provider in 2- 3 days. Patient is to return to ED for any new or worsening symptoms.pt refused ct of head and cta of chest to r/o cva/pe Patient is agreeable with this plan. - Diagnoses Differential Diagnosis/HQI/PQRI: Positive: Cerebral Vascular Accident, Dysrhythmia, Medication Reaction, Pulmonary Embolism, Vasovagal Episode Provider Diagnoses: Dizziness Discharge - Sign-Out/Discharge Documenting (check all that apply): Patient Departure - DISCHARGE - Discharge Plan Condition: Stable Disposition: HOME Patient Education Materials: Dizziness (ED) Referrals: Deepika Calle MD [Primary Care Provider] - 3 Days Additional Instructions: FOLLOW UP WITH PRIMARY CARE PROVIDER IN 2-3 DAYS. RETURN TO ED FOR ANY NEW OR WORSENING SYMPTOMS. - Billing Disposition and Condition Condition: STABLE Disposition: Home - Attestation Statements Document Initiated by Tulio: Yes Documenting Scribe: Rasheed Baker Provider For Whom Tulio is Documenting (Include Credential): Christiano Danielle MD Scribe Attestation: Rasheed Chavarria, scribed for Christiano Danielle MD on 07/28/18 at 1512. Scribe Documentation Reviewed: Yes Provider Attestation: The documentation as recorded by the Rasheed butcher accurately reflects the service I personally performed and the decisions made by , Christiano Danielle MD Status of Scribe Document: Viewed
--- OUTSIDE RECORDS SUMMARY | 2018-07-28 13:28 | XMS REPORT | Continuity of Care Document ---
:1960 External Reference #:[id number] Author Name Aicha Connors Care Team Providers Name Role Phone Deepika Mazariegos MD Primary Care Physician Unavailable Payers Type Date Identification Numbers Payment Provider Subscriber Effective: 2011 Policy Number: [id number] Nico Hurley Group Number: [id number] [id number] PayID: [id number] [place] [address] Advance Directives Description No Information Available Problems Date Description Provider Status Onset: 08/12/2011 Disorder of breast Allie Marquez M.D. Active Note: noted on 08/2011 mammo, needs repeat in 01/2012 Onset: 08/28/2011 Hypothyroidism Allie Marquez M.D. Active Onset: 09/02/2011 Impaired fasting glycaemia Allie Marquez M.D. Active Onset: 09/02/2011 Hypo-osmolality and or Allie Marquez M.D. Active hyponatremia Onset: 01/13/2012 Spasm Allie Marquez M.D. Active Onset: 01/13/2012 Subjective tinnitus Allie Marquez M.D. 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 Active osteoarthritis of the pelvic region and thigh Onset: 04/14/2018 Aortic valve disorder Liyah Bowling NP Active Onset: 04/14/2018 Bradycardia, unspecified Liyah Bowling NP Active Family History Date Family Member(s) Problem(s) Comments [...] 5 Social History Type Date Description Comments Sex Unknown Marital Status Single Lives With Alone ETOH Use Denies alcohol use Tobacco Use Start: Unknown End: Patient is a former Unknown smoker Recreational Drug Use Denies Drug Use Smoking Status Reviewed: 07/25/18 Patient is a former smoker Exercise Type/Frequency Does not exercise Due to hip pain Allergies, Adverse Reactions, Alerts Date Description Reaction Status Severity Comments 07/15/2011 contrast dye Active Medications Medication Date Status Form Strength Qnty SIG Indications Ordering Provider Cyclobenzaprine 06/25/ Active Tablets 10mg 90tab take 1 tab Abby HCL 2018 s by mouth Edgar, 2-3 times M.D. a day as needed Amoxicillin 06/03/ Active Capsules 500mg 8caps take 4 Abby 2017 pills, 2 g Edgar, 1 hour M.D. before dental or gi procedure Multivitamins / Active Tablets 1 po qd Unknown 0000 Levothyroxine / Active Tablets 112mcg 1 by mouth Unknown Sodium 0000 every day Liothyronine / Active Tablets 5mcg take 1 Unknown Sodium 0000 tablet every morning Calcium / Active 1/2 tab by Unknown 0000 mouth twice daily Magnesium / Active Tablets 1 by mouth Unknown 0000 every day Vitamin D / Active Tablets 1 tab by Unknown 0000 mouth everyday Xarelto / Active Tablets 15mg 1 by mouth Unknown 0000 bid x 2 weeks, then increase to 20mg qd x 3 months Oxycodone-Acetami 06/25/ Hx Tablets 5-325mg 70tab 1-2 by Abby nophen 2017 - s mouth Edgar, 07/05/ every 4-6 M.D. 2018 hours as needed for post-op pain. max 10 per day Coumadin 06/25/ Hx Tablets 2mg 60tab take 1-3 Abby 2017 - s tabs by Edgar, 07/10/ mouth at 5 M.D. 2018 at night as directed Colace 06/25/ Hx Capsules 100mg 90cap 1 tab by Abby 2018 - s mouth 2-3 Edgar, 07/24/ times a M.D. 2017 day as needed Compression 04/25/ Hx Misc 1unit 20/30 s/p Abby Stockings 2018 - s left VALERIE; Edgar, 06/12/ thigh high M.D. 2017 Warfarin Sodium 04/17/ Hx Tablets 2mg 90tab take 1-3 Abby 2018 - s tabs by Edgar, 06/12/ mouth at M.D. 2018 5pm nightly Cyclobenzaprine 04/17/ Hx Tablets 10mg 90tab take 1 tab Abby HCL 2017 - s by mouth Edgar, 06/25/ 2-3 times M.D. 2018 a day as needed Percocet 04/17/ Hx Tablets 5-325mg 90tab 1-2 by Abby 2018 - s mouth Edgar, 06/12/ every 4-6 M.D. 2018 hours as needed pain Colace 04/17/ Hx Capsules 100mg 90cap 1 tab by Abby 2018 - s mouth 2-3 Edgar, 06/12/ times a M.D. 2017 day as needed Levothyroxine 12/14/ Hx Tablets 112mcg 1 by mouth Nilda Sodium 2017 - every day Cotton, 12/14/ M.D. 2017 Diclofenac Sodium 12/14/ Hx Tablets 75mg 180ta take one M85.89 Ok 2016 - DR gomez capsule/lisa Light, 11/21/ blet by M.D. 2018 mouth twice daily as needed for pain, avoid other nsaids Doxycycline 02/06/ Hx Tablets 100mg 20tab 1 by mouth Simi Hyclate 2013 - s twice a Antonio, 12/14/ day M.D. 2016 Azithromycin 11/13/ Hx Tablets 250mg 6tabs two tabs Allie 2013 - one, Marquez, 01/24/ one daily M.D. 2013 till gone Proair HFA 11/07/ Hx Aerosol 108(90Bas 1unit two puffs 786.2 Allie 2013 - e) s every 4 Marquez, 01/24/ mcg/Act hours as M.D. 2013 needed for wheeze and chest tightness. Aspirin Ec 07/26/ Hx Tablets 325mg 90tab 1 po qd Allie 2012 - s prn Jimmy, 12/14/ M.D. 2016 Cyclobenzaprine 07/26/ Hx Tablets 5mg 30tab take 1-2 728.85 Nilda HCL 2012 tablet by Govind 12/14/ mouth at M.D. 2017 night as needed Oxycodone HCL 03/24/ Hx Tablets 5mg 60tab 1-2 po q Braeden 2012 - 4-6 hrprn Nitesh 07/26/ pain M.D. 2012 Meloxicam 03/10/ Hx Tablets 7.5mg 60tab 1 po bid Allie 2012 s as needed Jimmy, 01/24/ for pain M.D. 2013 Levothyroxine 02/01/ Hx Tablets 100mcg 90tab 1 by mouth Nilda Sodium 2012 every day Govind 12/14/ M.D. 2016 Cosyntropin 12/07/ Hx Solution 0.25mg/ml 1ml 250mcg Allie 2012 - IV/Im once Jimmy, 02/01/ M.D. 2012 Azithromycin 08/01/ Hx Tablets 250mg [...] by 466.0 Marilee 2011 - 5ML mouth , 12/02/ every day M.D., FACP 2013 every night as needed Erythromycin 07/15/ Hx Ointment 5mg/GM 3.500 apply to 373.11 Allie 2011 - gm eyelid Marquez, 07/26/ four times M.D. 2012 daily for 5 days. prn Levothyroxine 04/08/ Hx Tablets 88mcg 30tab 1 po qd Allie Sodium 2011 - s Jimmy, 02/01/ M.D. 2012 Cyclobenzaprine 09/02/ Hx Tablets 5mg 30tab take 1-2 728.85 Allie HCL 2011 tablet by Jimmy, 01/12/ mouth at M.D. 2011 night as needed Levothyroxine / Hx Tablets 50mcg 39tab 1 1/2 po Allie Sodium 0000 - s four times Marquez, 04/08/ a week, M.DPoly 2011 and 1 po three times a week Fish Oil / Hx Capsules 1000mg 30cap 2-3 po qd Unknown 0000 - s 2016 Glucosamine And 00/ Hx Capsules 1500/1200 2 po qd Unknown Chondrotin 0000 - mg 2011 Ibuprofen / Hx Capsules 200mg prn Unknown - 2012 Glucosamine / Hx Capsules 1500Com 1 po qd Unknown Chondroitin 1500 0000 - Complex 2013 Magnesium / Hx Capsules 1 po qd Unknown - 2012 Percocet / Hx Tablets 5-325mg 60tab 1-2 po Unknown 0000 - s q4-6h prn 2012 Synthroid / Hx Unknown - 2013 Ibuprofen / Hx Tablets 400mg 1 by mouth M85.89 Unknown 0000 - three 12/14/ a 2016 day with food as needed Medications Administered in Office Medication Date Status Form Strength Qnty SIG Indications Ordering Provider Inj, Administered Injection Wilman Garibay Regadenoson, 018 Juan Carlos, 0.1 MG Thiago, FACC, FASNC Technetium TC Administered Injection Wilman Garibay 99M 018 Juan Carlos TetrofosminThiago, FACC, Per Unit Dose FASNC Up To 40 Millicuries Immunizations CPT Code Status Date Vaccine Reaction Lot # [id number] Given 05/31/2017 Influenza Virus Vaccine, no immediate reaction [id number] Quadrivalent, Split, noted Preservative Free [id number] Given 07/26/2013 Flu Vaccine Split Virus [id number] Preservative Free For Indiv 3Yr Older 17589 Given 05/18/2012 Influenza Virus 3Yrs & Over 92403 Given 07/15/2011 Tdap - [id number] Tetanus/Diptheria/Acellula r Pertussis 99146 Given 07/15/2011 Influenza Virus 3Yrs & [id number] Over Vital Signs Date Vital Result Comment 07/25/2018 10:52am Height 65 inches 5'5" Weight 130.00 lb BP Systolic 130 mmHg BP Diastolic 80 mmHg Body Temperature 98.6 F BMI (Body Mass Index) 21.6 kg/m2 07/11/2018 9:31am Height 65 inches 5'5" Heart Rate 52 /min BP Systolic 122 mmHg BP Diastolic 70 mmHg Respiratory Rate 18 /min Body Temperature 97.6 F Pain Level 7 07/06/2018 11:37am Height 65 inches 5'5" Weight 136.00 lb Heart Rate 56 /min Respiratory Rate 16 /min Body Temperature 98.7 F Pain Level 6 BMI (Body Mass Index) 22.6 kg/m2 06/13/2018 1:24pm Height 65 inches 5'5" Weight 136.00 lb Heart Rate 76 /min BP Systolic 142 mmHg BP Diastolic 80 mmHg BMI (Body Mass Index) 22.6 kg/m2 05/09/2018 2:07pm Heart Rate 60 /min BP Systolic 122 mmHg BP Diastolic 58 mmHg Respiratory Rate 16 /min Pain Level 0 04/25/2018 11:27am Height 65 inches 5'5" Weight 130.00 lb BP Systolic 124 mmHg BP Diastolic 74 mmHg Body Temperature 98.4 F BMI (Body Mass Index) 21.6 kg/m2 04/01/2018 10:26am Height 65 inches 5'5" Weight 128.00 lb Heart Rate 52 /min BP Systolic 122 mmHg BP Diastolic 76 mmHg BMI (Body Mass Index) 21.3 kg/m2 03/09/2018 4:40pm Height 65 inches 5'5" Weight 129.25 lb W/ Shoes Heart Rate 62 /min BP Systolic Sitting 144 mmHg Lue Reg Cuff BP Diastolic Sitting 72 mmHg Lue Reg Cuff BMI (Body Mass Index) 21.5 kg/m2 Ejection Fraction 50-55% ECHO 12/04/17 03/07/2018 11:04am Height 65 inches 5'5" Weight 125.00 lb Heart Rate 56 /min BP Systolic 140 mmHg BP Diastolic 76 mmHg BMI (Body Mass Index) 20.8 kg/m2 01/05/2018 4:11pm Height 65.5 inches 5'5.50" Weight 129.38 lb no shoes Heart Rate 64 /min BP Systolic Sitting 168 mmHg lue reg cuff BP Diastolic Sitting 92 mmHg lue reg cuff BMI (Body Mass Index) 21.2 kg/m2 Ejection Fraction 50-55% echo 11/30/2017 11/22/2017 9:52am Height 65.5 inches 5'5.50" Weight 132.00 lb w/boots Heart Rate 66 /min BP Systolic Sitting 172 mmHg LA reg cuff BP Diastolic Sitting 88 mmHg LA reg cuff BMI (Body Mass Index) 21.6 kg/m2 Ejection Fraction 50-55% Stress Test 07/14/12 05/31/2017 9:18am Height 65.5 inches 5'5.50" Weight 139.00 lb Heart Rate 55 /min BP Systolic Sitting 157 mmHg BP Diastolic Sitting 78 mmHg Respiratory Rate 14 /min Pain Level 4 BMI (Body Mass Index) 22.8 kg/m2 03/08/2017 9:58am Height 65.5 inches 5'5.50" Weight 143.00 lb Heart Rate 60 /min BP Systolic 122 mmHg BP Diastolic 74 mmHg Respiratory Rate 15 /min Body Temperature 97.6 F Pain Level 3 BMI (Body Mass Index) 23.4 kg/m2 12/28/2016 7:54am Height 65 inches 5'5" Heart Rate 52 /min BP Systolic Sitting 120 mmHg BP Diastolic Sitting 80 mmHg Respiratory Rate 14 /min 12/14/2016 9:54am Height 65 inches 5'5" Weight 140.12 lb Heart Rate 52 /min BP Systolic Sitting 114 mmHg BP Diastolic Sitting 74 mmHg Respiratory Rate 14 /min BMI (Body Mass Index) 23.3 kg/m2 01/24/2014 9:02am Height 65 inches 5'5" Weight 137.00 lb Heart Rate 60 /min BP Systolic Sitting 142 mmHg BP Diastolic Sitting 86 mmHg Body Temperature 97.5 F BMI (Body Mass Index) 22.8 kg/m2 11/07/2013 9:36am Weight 141.00 lb Heart Rate 86 /min BP Systolic Sitting 118 mmHg BP Diastolic Sitting 70 mmHg Respiratory Rate 15 /min Body Temperature 98.7 F 09/29/2013 11:11am Height 65 inches 5'5" Weight 136.00 lb Heart Rate 55 /min BP Systolic 144 mmHg BP Diastolic 80 mmHg BMI (Body Mass Index) 22.6 kg/m2 07/26/2013 9:45am Weight 137.50 lb Heart Rate 60 /min BP Systolic 160 mmHg BP Diastolic 88 mmHg 03/17/2013 1:33pm Heart Rate 58 /min BP Systolic Sitting 138 mmHg BP Diastolic Sitting 80 mmHg 03/10/2013 9:00am Weight 140.00 lb Heart Rate 60 /min BP Systolic Sitting 140 mmHg BP Diastolic Sitting 80 mmHg 02/01/2013 8:45am Weight 142.75 lb Heart Rate 56 /min BP Systolic Sitting 130 mmHg BP Diastolic Sitting 60 mmHg 12/19/2012 9:40am Weight 143.00 lb Heart Rate 56 /min BP Systolic Sitting 124 mmHg BP Diastolic Sitting 72 mmHg 12/02/2012 10:32am Weight 145.00 lb Heart Rate 58 /min BP Systolic Sitting 122 mmHg BP Diastolic Sitting 74 mmHg 08/01/2012 10:43am Height 65 inches 5'5" Weight 146.00 lb Heart Rate 56 /min BP Systolic Sitting 134 mmHg BP Diastolic Sitting 82 mmHg BMI (Body Mass Index) 24.3 kg/m2 07/15/2012 9:33am Height 65 inches 5'5" Weight 144.00 lb Heart Rate 54 /min BP Systolic Sitting 120 mmHg BP Diastolic Sitting 78 mmHg BMI (Body Mass Index) 24.0 kg/m2 05/18/2012 10:49am Height 65 inches 5'5" Weight 142.00 lb Heart Rate 70 /min BP Systolic Sitting 128 mmHg BP Diastolic Sitting 76 mmHg BMI (Body Mass Index) 23.6 kg/m2 04/08/2012 11:45am Height 65 inches 5'5" Weight 139.00 lb Heart Rate 74 /min BP Systolic Sitting 118 mmHg BP Diastolic Sitting 72 mmHg BMI (Body Mass Index) 23.1 kg/m2 03/18/2012 2:42pm Height 65 inches 5'5" Weight 134.00 lb Heart Rate 58 /min 47at rest, 57 excerise BP Systolic Sitting 152 mmHg BP Diastolic Sitting 60 mmHg O2 % BldC Oximetry 100 % BMI (Body Mass Index) 22.3 kg/m2 01/13/2012 9:53am Height 65 inches 5'5" Weight 146.00 lb Heart Rate 74 /min BP Systolic Sitting 120 mmHg BP Diastolic Sitting 70 mmHg BMI (Body Mass Index) 24.3 kg/m2 09/02/2011 1:39pm Height 65 inches 5'5" Weight 146.00 lb Heart Rate 64 /min BP Systolic Sitting 124 mmHg BP Diastolic Sitting 62 mmHg BMI (Body Mass Index) 24.3 kg/m2 07/15/2011 9:05am Height 65 inches 5'5" Weight 141.75 lb Heart Rate 64 /min BP Systolic Sitting 128 mmHg L BP Diastolic Sitting 82 mmHg L BMI (Body Mass Index) 23.6 kg/m2 Results Test Date Facility Test Result H/L Range Note Inr/Protime 06/29/2018 [facility] Inr 1.06 High 0.77-1.[address] [place], [place] [id number] [phone] Inr/Protime 06/13/2018 [facility] Inr 0.98 N 0.77-1.[address] [place] [address] [phone] Laboratory test 06/13/2018 [facility] Partial 32.5 seconds N 26.0-36.[address] [place] [address] PTT [phone] Urinalysis 06/13/2018 [facility] Urine Color [place] [address] [phone] Urine Appearance Clear Urine Specific [place] 1.004 Low 1.010-1.030 Urine pH 7.0 N 5-9 Urine Urobilinogen Negative Negative Urine Ketones Negative Negative Urine Protein Negative Negative Urine Leukocytes Negative Negative Urine Blood 1+ Abnormal Negative Urine Nitrite Negative Negative Urine Bilirubin Negative Negative Urine Glucose Negative Negative Urine White Blood Cell Trace(0-5/hpf) Absent Urine Red Blood Cell Trace(0-2/hpf) Absent Urine Bacteria Absent Absent Urine Squamous Epithelial Cell Present Abnormal Absent Type & Screen 06/13/2018 [facility] Patient Blood Type A Positive [address]IVE [place], [place] [id number] [phone] Antibody Screen NEGATIVE Urine Culture And 06/13/2018 [facility] Urine Culture SEE RESULT [address] [address] [phone] CBC Auto Diff 06/13/2018 [facility] White Blood 4.4 10^3/uL N 3.5-[address] DR[address] Count .8 [place] [address] [phone] Red Blood Count 3.75 10^6/uL Low 4.00-5.40 Hemoglobin 12.8 g/dL N 12.0-16.0 Hematocrit 37 % N 35-47 Mean Corpuscular Volume 100 fL High 80-97 Mean Corpuscular Hemoglobin 34 pg High 27-31 Mean Corpuscular HGB Conc 34 g/dL N 31-36 Red Cell Distribution Width 14 % N 10.5-15 Platelet Count 171 10^3/uL N 150-450 Mean Platelet Volume 10.4 fL N 7.4-10.4 Abs Neutrophils 1.4 10^3/uL Low 1.5-7.7 Abs Lymphocytes 2.3 10^3/uL N 1.0-4.8 Abs Monocytes 0.5 10^3/uL N 0-0.8 Abs Eosinophils 0.2 10^3/uL N 0-0.6 Abs Basophils 0.1 10^3/uL N 0-0.2 Abs Nucleated RBC 0 10^3/uL Granulocyte % 31.6 % Low 38-83 Lymphocyte % 51.8 % High 25-47 Monocyte % 10.7 % High 0-7 Eosinophil % 4.5 % N 0-6 Basophil % 1.4 % N 0-2 Nucleated Red Blood Cells % 0.1 Type & Screen 04/01/2018 [facility] Patient Blood Type A Positive [address] [place] [address] [phone] Antibody Screen NEGATIVE Xray 03/07/2018 [facility] MRI Lumbar <pending> [address] [place] [address] [phone] Laboratory test 05/17/2017 [facility] C Reactive < 1.00 mg/L N < 5.00 [address] [place] [address] [phone] Hla B27 12/14/2016 [facility] Hla B27 Negative N [address] [place] [address] [phone] Hla B27 Interp See Comment N 5 Laboratory test 12/14/2016 [facility] C Reactive < 1.00 N < 5.00 [address] Protein mg/[place] [address] [phone] Cyclic Citrullinated Pep Igg <15.6 U N 7 Rheumatoid Factor <15 IU/mL N <15 8 Uric Acid 4.7 mg/dL N 2.3-6.6 9 Erythrocyte Sed Rate 27 mm/Hr N 0-30 10 Cardiolipin 12/14/2016 [facility] Phospholipid Ab < 9.4 MPL N 11 Igg/Igm [address] IgM, [place] [address] [phone] Phospholipid Ab IgG < 9.4 GPL N 12 Laboratory test 01/25/2014 [facility] Hemoglobin A1c 6.0 % N Less than [address] [place] [address] [phone] TSH (Thyroid Stimulating Horm) 1.73 IU/mL N 0.34-5.60 Basic Metabolic Panel 01/25/2014 [facility] Sodium 136 mmol/L N 133-[address] [place] [address] [phone] Potassium 3.7 mmol/L N 3.7-5.6 Chloride 102 mmol/L N 101-111 Co2 Carbon Dioxide 29 mmol/L N 22-32 Anion Gap 5 mmol/L N 2-11 Glucose 89 mg/dL N 70-100 Blood Urea Nitrogen 19 mg/dL N 6-24 Creatinine 0.69 mg/dL N 0.51-0.95 BUN/Creatinine Ratio 27.5 High 8-20 Calcium 9.4 mg/dL N 8.6-10.3 Egfr Non- 88.3 N >60 Egfr 113.6 N >60 14 Laboratory test 04/24/2013 [facility] TSH (Thyroid 0.42 0.34- 5.[address] Stimulating miu/[place] [address] Horm) [phone] Sodium 128 mmol/L Low 133-145 Basic Metabolic 03/17/2013 [facility] Sodium 129 mmol/L Low 133-[address] [place] [address] [phone] Potassium 4.1 mmol/L 3.5-5.0 Chloride 97 mmol/L Low 101-111 Co2 Carbon Dioxide 26.0 mmol/L 22-32 Anion Gap 6.0 mmol/L 2-11 Glucose 101 mg/dL High 70-100 Blood Urea Nitrogen 12 mg/dL 6-24 Creatinine 0.60 mg/dL 0.50-1.40 BUN/Creatinine Ratio 20.0 8-20 Calcium 9.5 mg/dL 8.1-9.9 Egfr Non- 104.2 >60 Egfr 134.0 >60 15 Laboratory test 03/08/2013 [facility] Sodium 133 mmol/L 133- [address] [place] [address] [phone] Urine Osmolality 143 mOsm/kg Low 300-1000 Urine Random Sodium 17 mmol/L Osmolality Serum 280 mOsm/kg Low 281-297 Hemoglobin/Hematacrit 03/08/2013 [facility] Hemoglobin 12.9 12.0-16.0 [address] [facility] g/dL [place], [place] [id number] [phone] Hematocrit 38 % 35-47 Laboratory test 03/08/2013 [facility] Hemoglobin A1c 5.7 % Less than [address] [facility] [address] [place] [address] [phone] Laboratory test 03/08/2013 [facility] Uric Acid 4.0 mg/dL 2.6 -7.2 finding [address] [place] [address] [phone] C Reactive Protein < 0.5 mg/dL Less than 0.5 Erythrocyte Sed Rate 21 mm/Hr 0-30 Rheumatoid Factor <15 IU/mL <15 17 Reyna (Anti-Nuclear AB) Screen Negative Negative Laboratory test 01/13/2013 [facility] Sodium 129 mmol/L Low 133-[address] [place] [address] [phone] Urine Osmolality 126 mOsm/kg Low 300-1000 Urine Random Sodium 23 mmol/L Osmolality Serum 281 mOsm/kg 281-297 Laboratory test finding 01/13/2013 [facility] Cortisol 11.0 g/ dL 18 [place] [address] [phone] Acth 12 pg/mL 19 Laboratory test 12/13/2012 [facility] Cortisol 28.4 g/dL [address] [place] [phone] Laboratory test 12/13/2012 [facility] Cortisol 20.6 g/dL 21 finding [address] [place], [place] [id number] [phone] Laboratory test 12/13/2012 [facility] Cortisol 7.3 g/dL [address] [place] [address] [phone] Laboratory test 12/03/2012 [facility] TSH (Thyroid 3.53 miu/mL 0.34- finding [facility] Stimulating 5.60 [place] [address] Horm) [phone] Basic Metabolic 12/03/2012 [facility] Sodium 127 mmol/L Low 133-1 Panel [address] [place] [address] [phone] Potassium 4.5 mmol/L 3.5-5.0 Chloride 94 mmol/L Low 101-111 Co2 Carbon Dioxide 28.0 mmol/L 22-32 Anion Gap 5.0 mmol/L 2-11 Glucose 72 mg/dL 70-100 Blood Urea Nitrogen 11 mg/dL 6-24 Creatinine 0.60 mg/dL 0.50-1.40 BUN/Creatinine Ratio 18.3 8-20 Calcium 9.2 mg/dL 8.1-9.9 Egfr Non- 104.2 >60 Egfr 134.0 >60 23 Laboratory test 12/03/2012 [facility] Cortisol 6.4 g/dL [address] [place] [address] [phone] Laboratory test 09/07/2012 [facility] Osmolality 280 mOsm/kg Low 281-[address] Serum 97 [place] [address] [phone] Sodium 131 mmol/L Low 133-145 Urine Osmolality 132 mOsm/kg Low 300-1000 Urine Random Sodium 23 mmol/L Vitamin B12 475 pg/mL 180-808 Reyna (Anti-Nuclear AB) Screen Negative Negative C Reactive Protein < 0.5 mg/dL Less than 0.5 Erythrocyte Sed Rate 21 mm/Hr 0-30 Hemoglobin A1c 6.2 % High Less than 6.0 25 Laboratory test 09/07/2012 [facility] Sodium 131 mmol/L Low 133-[address] [place] [address] [phone] Osmolality Serum 280 mOsm/kg Low 281-297 Vitamin B12 475 pg/mL 180-910 C Reactive Protein < 0.5 mg/dL Less than 0.5 Laboratory test 09/07/2012 [facility] Hemoglobin A1c 6.2 % High Less [address] [place] [address] [phone] Laboratory test 06/29/2012 [facility] TSH (Thyroid 4.75 0.34- 5.[address] Stimulating MIU/ML 0 [place] [address] Horm) [phone] Sodium 131 mmol/L Low 133-145 Laboratory test 03/23/2012 [facility] TSH 2.83 MIU/ML 0.34- 5.[address] [place], [place] [address] [phone] Thyroxine Free 0.81 ng/dL 0.61-1.24 Thyroid 03/23/2012 [facility] Thyroperoxidase 277.[address] Antibody IU/[place] [address] 9.0 [phone] Thyroglobulin AB Screen 525 IU/mL Abnormal <116 27 Comp Metabolic Panel 03/23/2012 [facility] Sodium 130 mmol/L Low 135-145 [place] [address] [phone] Potassium 4.4 mmol/L 3.5-5.0 Chloride 96 mmol/L Low 101-111 Co2 (Carbon Dioxide) 28.0 mmol/L 22-32 Anion Gap 6.0 mmol/L 2-11 28 Glucose 96 mg/dL 70-100 BUN 15 mg/dL 6-24 Creatinine 0.7 mg/dL 0.50-1.40 One Over Creatinine 1.42 BUN/Creatinine Ratio 21.4 High 8-20 Calcium 9.1 mg/dL 8.1-9.9 Total Protein 7.1 GM/DL 6.2-8.1 Albumin 4.4 GM/DL 3.6-5.4 Globulin 2.7 GM/DL 2-4 Albumin/Globulin Ratio 1.6 1-3 Bilirubin Total 0.7 mg/dL 0.4-1.5 29 Alkaline Phosphatase 78 U/L 30-110 Alt (SGPT) 38 U/L 14-54 Ast (Sgot) 33 U/L 12-42 eGFR Non- 87.5 > 60 eGFR 112.6 > 60 30 Laboratory test 03/23/2012 [facility] Troponin-I 0 NG/ML 0- 0.[address] [place] [address] [phone] Laboratory test 01/09/2012 [facility] Hemoglobin A1c 6.0 % Less Than 32, [address] [place] [address] [phone] Glucose 92 mg/dL 70-100 CBC Auto Diff 01/09/2012 [facility] White Blood 5.0 CUMM 4.8- 10.[address] [place] [address] [phone] Red Cell Count 3.44 CUMM Low 4.2-5.4 [...] 0-0.6 Abs Basophils 0 0-0.2 Laboratory test 01/09/2012 [facility] Vitamin A 50.1 g/dL 32.5-78.[address] (Retinol) [place] [address] [phone] Vitamin D, 1,25 Dihydroxy 47 pg/mL 18-78 35 Laboratory test 09/02/2011 [facility] Osmolality 299 MOSMO High 281-[address] [place] [address] [phone] Sodium 133 mmol/L Low 135-145 Sodium Random Urine 46 mmol/L Osmolality Random Urine 236 MOSMO Low 300-1000 CBC Auto Diff 09/02/2011 [facility] White Blood 6.9 CUMM 4.8- 10.[address] [place] [address] [phone] Red Cell Count 3.58 CUMM Low 4.2-5.4 [...] 0-0.6 Abs Basophils 0.1 0-0.2 Laboratory test 09/02/2011 [facility] Vitamin A 57.8 g/dL 32.5-78.0 [address] (Retinol) [place] [address] [phone] Vitamin D, 1,25 Dihydroxy 33 pg/mL 18-78 37 Laboratory test 08/24/2011 [facility] Hemoglobin A1c 5.8 % Less Than 38, [address] [place] [address] [phone] Sodium 130 mmol/L Low 135-145 CPK (Creatine Kinase) 253 U/L High 0-170 Lipid Panel - 07/16/2011 [facility] CPK (Creatine 259 U/L High 0-[address] Kinase) [place] [address] [phone] Comp Metabolic 07/16/2011 [facility] Sodium 127 Low 135-[address] mmol/[place] [address] [phone] Potassium 4.3 mmol/L 3.5-5.0 Chloride 94 mmol/L Low 101-111 Co2 (Carbon Dioxide) 27.0 mmol/L 22-32 Anion Gap 6.0 mmol/L 2-11 40 Glucose 103 mg/dL High 70-100 BUN 15 mg/dL 6-24 Creatinine 0.7 mg/dL 0.50-1.40 One Over Creatinine 1.42 BUN/Creatinine Ratio 21.4 High 8-20 Calcium 9.3 mg/dL 8.1-9.9 Total Protein 7.1 GM/DL 6.2-8.1 Albumin 4.6 GM/DL 3.6-5.4 Globulin 2.5 GM/DL 2-4 Albumin/Globulin Ratio 1.8 1-3 Bilirubin Total 1.1 mg/dL 0.4-1.5 41 Alkaline Phosphatase 82 U/L 30-110 Alt (SGPT) 35 U/L 14-54 Ast (Sgot) 33 U/L 12-42 eGFR Non- 87.5 > 60 eGFR 112.6 > 60 42 Lipid Profile 07/16/2011 [facility] Triglyceride 40 mg/dL 40- 200 (Trig/Chol/HDL) [address] [place] [address] [phone] Cholesterol 216 mg/dL High Less Than 200 43 High Density Lipoprotein 80 mg/dL High 40-60 44 Cholesterol/HDL Ratio 2.70 AVERAGE 1-4.44 Low Density Lipoprotein 128 mg/dL High Less Than 100 45 CBC Auto Diff 07/16/2011 [facility] White Blood 6.1 CUMM 4.8- 10.[address] [place] [address] [phone] Red Cell Count 3.61 CUMM Low 4.2-5.4 [...] 0-0.6 Abs Basophils 0.1 0-0.2 Laboratory test 07/16/2011 [facility] Vitamin D, 1,25 40 pg/mL 18-78 [address] [place] [address] [phone] TSH 2.73 MIU/ML 0.34-5.60 Laboratory test 07/15/2011 [facility] Cytology <SEE [address] NOTE> [place] [address] [phone] 1 SEE RESULT BELOW Name: MAIRA HURLEY : [address]: Abby Hernández MD Acct: [id number] Unit: [id number] AGE: 58 Location: PAT Re06/13/18 SEX: F Status: REG REF SPEC: [id number] LIV: 06/13/18 [facility] DR: Abby Hernández MD REQ: [id number] RECD: 06/13/18 STATUS: GEORGE MCKEON DR: Deepika Mazariegos MD _ SOURCE: URINE SPDESC: ORDERED: Urine Culture QUERIES: Urine Source: Clean Catch Procedure Result Reported Site Urine Culture Final 06/14/18- 1607 ML No Growth (<1,000 CFU/mL) * ML - Main Lab . END OF REPORT DEPARTMENT OF PATHOLOGY, [address] [place] [address] Yoan Paredes M.D. Director [facility] # [id number] 2 PAIN IN LEFT HIP, LOW BACK PAIN, UNILATERAL OSTEOA 3 Acute inflammation: >10.00 4 REFERENCE VALUE Not Applicable 5 RESULT: HLA-B27 antigen was not detected. ADDITIONAL INFORMATION Method: Flow Cytometry Performing Laboratory IA# [id number] Test Performed by: [place] [address] 6 Acute inflammation: >10.00 7 REFERENCE VALUE <20.0 (Negative) Test Performed by: [place] [address] 8 Test Performed by: [place] [address] 9 Please check today 10 Please check today 11 REFERENCE VALUE <15.0 (Negative) 12 REFERENCE VALUE <15.0 (Negative) Test Performed by: [address] [address] 13 Therapeutic target for the treatment of diabetes Mellitus patients is <7% HBA1C, and in selective patients <6.0%.Please refer to [place] [employer] Diabetic care guidelines for further information. 14 Because ethnic data is not always readily [...] 15-29 5 Kidney failure <15 (or dialysis) 15 Because ethnic data is not always readily [...] 15-29 5 Kidney failure <15 (or dialysis) 16 Therapeutic target for the treatment of diabetes Mellitus patients is <7% HBA1C, and in selective patients <6.0%.Please refer to [place] [employer] Diabetic care guidelines for further information. 17 Test Performed by: [facility] [address] [place] [address] Structural Manager: Smith Crespo III, M.D. 18 AM Cortisol 8.7-22.4 PM Cortisol Less than 10 19 -- REFERENCE VALUE -- 10-60 (a.m. collection) Test Performed by: [facility] [address] [place] [address] Structural Manager: Smith Crespo III, M.D. 20 AM Cortisol 8.7-22.4 PM Cortisol Less than 10 21 AM Cortisol 8.7-22.4 PM Cortisol Less than 10 22 AM Cortisol 8.7-22.4 PM Cortisol Less than 10 23 Because ethnic data is not always readily [...] 15-29 5 Kidney failure <15 (or dialysis) 24 AM Cortisol 8.7-22.4 PM Cortisol Less than 10 25 Therapeutic target for the treatment of diabetes Mellitus patients is <7% HBA1C, and in selective patients <6.0%.Please refer to [place] [employer] Diabetic care guidelines for further information. 26 Therapeutic target for the treatment of diabetes Mellitus patients is <7% HBA1C, and in selective patients <6.0%.Please refer to [place] [employer] Diabetic care guidelines for further information. 27 If thyroglobulin antibody measurement is performed to [...] cannot be used interchangeably. Test Performed by: [place] [address] Structural Manager: Smith Crespo III, M.D. 28 Anion gap measurement may be of limited value in the presence of any alkalosis, especially in a combined acid base disorder. . 29 A metabolite of Naproxen, O-desmethylnaproxen, has been shown to interfere with the Jendrassik-Fernie method for measuring total bilirubin. Samples from patients who have taken Naproxen have shown spurious elevation in total bilirubin levels. 30 Because ethnic data is not always readily [...] 15-29 5 Kidney failure <15 (or dialysis) 31 New Reference Range and Interpretation effective 05/12/2002 TnI (ng/ml) INTERPRETATION Less Than 0.06 ng/mL NOT SUPPORTIVE OF DIAGNOSIS OF [place] 0.06 - 0.50 ng/ml INDETERMINATE: SUGGEST SERIAL STUDIES IF CLINICALLY INDICATED. Greater than 0.5 ng/mL CONSISTENT WITH DIAGNOSIS OF [place] . 32 FASTING 33 THERAPEUTIC TARGET FOR THE TREATMENT OF DIABETES MELLITUS PATIENTS IS <7% HBA1C, AND IN SELECTIVE PATIENTS <6.0%. PLEASE REFER TO [place] [employer] DIABETIC CARE GUIDELINES FOR FURTHER INFORMATION. 34 Test Performed by: [facility] [address] [address] Structural Manager: Gracia Snowden, Ph.D. 35 Test Performed by: [place] [address] Structural Manager: Smith Crespo III, M.D. 36 Test Performed by: [place] [address] Structural Manager: Gracia Snowden, Ph.D. 37 Test Performed by: [facility] Dpt of Lab Med and Pathology [address] [place] [address] Structural Manager: Smith Crespo III, M.D. 38 NON FASTING 39 THERAPEUTIC TARGET FOR THE TREATMENT OF DIABETES MELLITUS PATIENTS IS <7% HBA1C, AND IN SELECTIVE PATIENTS <6.0%. PLEASE REFER TO [place] [employer] DIABETIC CARE GUIDELINES FOR FURTHER INFORMATION. 40 Anion gap measurement may be of limited value in the presence of any alkalosis, especially in a combined acid base disorder. . 41 A metabolite of Naproxen, O-desmethylnaproxen, has been shown to interfere with the Jendrassik-Herbster method for measuring total bilirubin. Samples from patients who have taken Naproxen have shown spurious elevation in total bilirubin levels. 42 Because ethnic data is not always readily [...] 15-29 5 Kidney failure <15 (or dialysis) 43 CHOLESTEROL INTERPRETATION: Desirable: Less than 200 MG/DL Borderline-High Risk: 200-239 MG/DL High-Risk: 240 MG/DL and over 44 HDL INTERPRETATION: Undesirable: High Risk: Less than 40 MG/DL Desirable: Low Risk: Greater than 60 MG/DL 45 LDL INTERPRETATION: Low Risk Optimal Level: LDL Less than 100 MG/DL Near or Above Optimal: LDL 100-129 MG/DL Borderline High Risk: LDL 130-159 MG/DL High Risk: LDL 160-189 MG/DL Very High Risk: LDL Greater than 189 MG/DL 46 Test Performed by: [facility] Dpt of Lab Med and Pathology [address] [place] [address] Structural Manager: Smith Crespo III, M.D. 47 ---- RUN DATE: 07/22/11 [facility] NMI LIVE PAGE 1 RUN TIME: 902 Specimen Inquiry RUN USER: INTERFACE -- Name: MAIRA HURLEY Status: REG REF Re07/15/11 Age/Sex: 51/F Unit#: [id number] Location: [facility] : 56 -- Specimen: [id number] SOUT Spec Date: 07/15/[address]: Allie Marquez [...] Specimen sent to [facility] in [place], [place] on 07/16/11 by PEARLO at 1207. Results will be reported separately in an addendum. ADDENDUM Addendum #1 Entered: 07/22/11 [facility] Human Papilloma Virus test results received with preparation and diagnosis completed by [facility], [place], [place]. Results: NEGATIVE High Risk (for types 16, 18, 31, 33, 35, 39, 45, 51, 52, 56, 58, 59, 68) This test was developed and its performance characteristics determined by Laboratory Medicine and Pathology, [facility], [place], [place]. It has not been cleared or approved by the U.S. Food and Drug Administration. -- DEPARTMENT OF PATHOLOGY, [address] [place] [address] [facility] Permit #[id number] Yoan Paredes M.D. Director Ronald Barrientos M.D. Manager Technical Sales Dir plataor -- -- RUN DATE: 07/22/11 [facility] NMI LIVE PAGE 2 RUN TIME: 902 Specimen Inquiry RUN USER: INTERFACE -- Name: MAIRA HURLEY Status: REG REF Re07/15/11 Age/Sex: 51/F Unit#: [id number] Location: [facility] : 56 -- -- CONTINUED -- ADDENDUM (Continued) Test Performed by: [facility] Dpt of lab Med and Pathology [address] [place] [address] Structural Manager: Smith Crespo III, M.D. Original hard copy report from [facility] is available upon request by calling Pathology at [phone]. Addendum Review Katie REYNOLDS([facility]) 07/22/11 -- This Pap test was evaluated with the assistance of the QuincusPrep Pap Test Imaging System. The Pap Smear [...] three years. Initial evaluation performed by Katie REYNOLDS([facility]) 07/16/11 Final Interpretation electronically signed by: Katie REYNLODS([facility]) 07/16/11 1303 -- -- DEPARTMENT OF PATHOLOGY, [address] [place] [address] [facility] Permit #[id number] Thiago Ortiz M.D. Manager Technical Sales evgeny -- Procedures Date Code Description Status 06/23/2018 THR Total Hip Replacement Completed 06/23/2018 THR Total Hip Replacement Completed 04/14/2018 THR Total Hip Replacement Completed 04/14/2018 THR Total Hip Replacement Completed 03/29/2018 70326 Stress Test Completed 03/29/2018 36103 Myocardial Perfusion Imaging Tomographic (Spect) Completed Multiple Studies 03/09/2018 65543 EKG Tracing & Interpretation Completed 11/30/2017 69766 ECHO Transthoracic, Real-Time 2D With Doppler And Completed Color Flow 11/30/2017 44184 ECHO Transthoracic, Real-Time 2D With Doppler And Completed Color Flow 11/22/2017 82249 EKG Tracing & Interpretation Completed 12/21/2016 [id number] Bone Mineral Density Test Completed 11/06/2013 43185042 Mammogram Completed 06/16/2013 14249 Rad Exam; Ankle Comp Completed 04/24/2013 00766 Short Leg Cast Completed 04/11/2013 00086 Rad Exam; Ankle Limited Completed 04/03/2013 93725 Short Leg Cast Completed 03/21/2013 68406 ORIF Open TX Bimalleolar Ankle FX Includes Internal Completed Fixation 03/17/2013 68797 EKG Tracing & Interpretation Completed 02/10/2013 73635657 Mammogram Completed 09/07/2012 15250599 Mammogram Completed 07/14/2012 14995 Stress ECHO Interpretation/Report Hospital Completed 07/08/2012 54936 ECHO Transthorasic Realtime 2D W Doppler & Color Flow Completed Hosp 06/28/2012 79104 EKG Tracing & Interpretation Completed 03/18/2012 30569 EKG Tracing & Interpretation Completed 02/11/2012 84534870 Mammogram Completed 08/12/2011 09033852 Mammogram Completed 12/23/2009 47701679 Colonoscopy Completed 08/09/2008 05144914 Colonoscopy Completed Encounters Type Date Location Provider Dx Diagnosis Office Visit 06/26/2018 [facility] Karen Rice, E87.1 Hypo- osmolality and 8:44a Assoc,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 hyponatremia Hospitalists Z96.651 Presence of right artificial knee joint E03.9 Hypothyroidism, unspecified Office Visit 05/09/2018 2:00p Orthopedic Abby Hernández, Z47.1 [facility] Services Of [place] following joint C.M.A. replacement surgery Z96.642 Presence of left artificial hip joint M25.551 Pain in right hip M16.11 Unilateral primary osteoarthritis, right hip Office Visit 04/16/2018 [facility] Arcadio E87.1 Hypo-osmolality and 11:28a Assoc,LEANDRA Jones hyponatremia Hospitalists R00.1 Bradycardia, unspecified E03.9 Hypothyroidism, unspecified I35.0 Nonrheumatic aortic (valve) stenosis Office Visit 04/15/2018 [facility] R00.1 Bradycardia, 11:28a Assoc,LEANDRA Gunter unspecified Hospitalists E87.1 Hypo-osmolality and hyponatremia I35.0 Nonrheumatic aortic (valve) stenosis E03.9 Hypothyroidism, unspecified Office Visit 04/14/2018 [facility] Liyah Morel R00.1 Bradycardia, 11:27a Assoc,robbie Bowling NP unspecified Hospitalists E87.1 Hypo-osmolality and hyponatremia I35.0 Nonrheumatic aortic (valve) stenosis Office 03/19/2018 [facility] Sonu Moss G56.31 Lesion of radial Visit 7:00a Phillip Ramey M.D. nerve, right upper limb Office 03/19/2018 [facility] Halima Bey, G56.31 Lesion of radial Visit 1:07p ,robbie Owens M.D. nerve, right upper limb Office 03/18/2018 [facility] Javad R53.1 Weakness Visit 1:02p ,pc Roman Kelley II, M.D. Office 03/09/2018 [facility] Qutaybeh S. 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 M.D. 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 M.D. 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 left hip M85.89 Oth disrd of bone density and structure, multiple sites Z79.1 correction (current) use of non-steroidal non-inflam (Nsaid) Office Visit 12/14/2016 10:00a Rheumatology [place] M25.552 Pain in Services Of Direct Care Supervisor M.D. left hip M41.34 Thoracogenic scoliosis, thoracic region M06.4 Inflammatory polyarthropathy I73.00 Raynaud's syndrome without gangrene M25.551 Pain in right hip Office Visit 01/24/2014 9:00a [facility] Internal Allie Marquez, 790.21 Impaired Medicine - M.D. Fasting Glucose [place] 244.9 Hypothyroidism Other Unspec 796.2 Blood Pressure Reading Elevated W/O Hypertension 276.1 Hyposmolality & Or Hyponatremia 786.2 Cough Office Visit 11/07/2013 10:00a [facility] Internal Allie Marquez, 786.2 Cough Medicine - M.D. [place] Office Visit 09/29/2013 11:00a Orthopedic Braeden 824.8 FX Ankle Unspec Services Of [place] [place]ling Closed C.M.A. Office Visit 07/26/2013 9:40a [facility] Internal Allie Marquez, V70.0 Examination Medicine - M.D. [facility] Routine AT Health Care Facility V76.10 Screening For Malignant Neoplasm Breast 790.21 Impaired Fasting Glucose 244.9 Hypothyroidism Other Unspec 796.2 Blood Pressure Reading Elevated W/O Hypertension V04.81 Need For Prophylactic Vaccination & Inoculation/Influenza 276.1 Hyposmolality & Or Hyponatremia 728.85 Spasm Muscle Office Visit 03/17/2013 1:20p [facility] Internal Allie Marquez, 729.5 Pain In Limb Medicine - M.D. [place] 790.21 Impaired Fasting Glucose 244.9 Hypothyroidism Other Unspec 276.1 Hyposmolality & Or Hyponatremia 786.59 Pain Chest Other Office Visit 03/17/2013 9:45a Orthopedic [place] 824.6 FX Ankle Services Of [place] Dowling Trimalleolar Closed C.M.A. Office Visit 03/10/2013 9:20a [facility] Jose Marquez, 276.1 Hyposmolality & Or Medicine - M.D. Hyponatremia [place] 244.9 Hypothyroidism Other Unspec 836.0 Dislocation Knee Tear Of Medial Cartilage Or Meniscus Curren Office Visit 02/08/2013 3:30p Orthopedic Sam Puckett 836.0 Dislocation Knee Services Of [place] Tear Of Medial C.M.A. Cartilage Or Meniscus Curren Office Visit 02/01/2013 8:40a [facility] Jose Marquez, 276.1 Hyposmolality & Or Medicine - M.D. Hyponatremia [place] 244.9 Hypothyroidism Other Unspec 790.21 Impaired Fasting Glucose 611.9 Breast Disorders Unspec Office Visit 12/19/2012 9:40a [facility] Internal Allie Marquez, 276.1 Hyposmolality & Or Medicine - M.D. Hyponatremia [place] 729.5 Pain In Limb Office Visit 12/02/2012 10:20a [facility] Internal Allie Marquez, 244.9 Hypothyroidism Other Medicine - M.D. Unspec [place] 276.1 Hyposmolality & Or Hyponatremia 780.79 Malaise And Fatigue Other 729.5 Pain In Limb Office Visit 08/01/2012 10:40a [facility] Internal Marilee Macie, 466.0 Bronchitis Acute Medicine - M.D., FACP [place] Office Visit 07/15/2012 9:40a [facility] Internal Allie Marquez, 276.1 Hyposmolality & Or Medicine - M.D. Hyponatremia [place] 780.79 Malaise And Fatigue Other 244.9 Hypothyroidism Other Unspec 373.11 Hordeolum Externum 790.21 Impaired Fasting Glucose Office Visit 07/08/2012 12:30p [place] Gracia Sanchez, 427.31 Atrial Cardiology Of M.D. Fibrillation Direct Care Supervisor AT [facility] 285.9 Anemia Unspec Office Visit 06/28/2012 9:45a [place] [facility] Gracia Sanchez, 786.50 Pain Chest Of [facility] M.D. Unspec 427.89 Cardiac Dysrhythmia Other Office 05/18/2012 [facility] Internal Allie Mraquez, V04.81 Need For Prophylactic Visit 10:40a Medicine - M.D. Vaccination & [place] Inoculation/Influenza 244.9 Hypothyroidism Other Unspec V04.81 Need For Prophylactic Vaccination & Inoculation/Influenza 733.6 Tietzes Disease 836.0 Dislocation Knee Tear Of Medial Cartilage Or Meniscus Curren 780.79 Malaise And Fatigue Other Office Visit 04/08/2012 11:40a [facility] Internal Allie Marquez, 244.9 Hypothyroidism Other Medicine - M.D. Unspec [place] 785.1 Palpitations 276.1 Hyposmolality & Or Hyponatremia Office Visit 03/18/2012 2:00p [facility] Internal Allie Marquez, 244.9 Hypothyroidism Other Medicine - M.D. Unspec [place] 785.1 Palpitations 786.59 Pain Chest Other Office Visit 01/13/2012 10:00a [facility] Internal Allie Marquez, 611.9 Breast Disorders Medicine - M.D. 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 at [facility]07/25/2018 - Abby Hernández M.D.Z47.1 Aftercare following joint replacement surgeryFollow up:Follow up: 4 hxzdcN12.551 Pain in right hipZ96.641 Presence of right artificial hip joint
--- OUTSIDE RECORDS SUMMARY | 2018-07-28 13:29 | XMS REPORT | Continuity of Care Document ---
:1960 External Reference #:[id number] Author Name Lauren Nelson Care Team Providers Name Role Phone Deepika Mazariegos MD Primary Care Physician Unavailable Payers Type Date Identification Numbers Payment Provider Subscriber Effective: 2011 Policy Number: [id number] Nico Hurley Group Number: [id number] PayID: [id number] [place] [address] Advance Directives Description No Information Available Problems [...] Use Denies Drug Use Smoking Status Reviewed: 07/11/18 Patient is a former smoker Exercise Type/Frequency Does not exercise Due to hip pain Allergies, Adverse Reactions, Alerts Date Description Reaction Status Severity Comments 07/15/2011 contrast dye Active Medications Medication Date Status Form Strength Qnty SIG Indications Ordering Provider Colace 06/25/ Active Capsules 100mg 90cap 1 tab by Abby 2018 s mouth 2-3 Edgar, times a M.D. day as needed Cyclobenzaprine 06/25/ Active Tablets 10mg 90tab take 1 tab Abby HCL 2018 s by mouth Edgar, 2-3 times M.D. a day as needed Amoxicillin 06/03/ Active Capsules 500mg 8caps take 4 Abby 2018 pills, 2 g Edgar, 1 hour M.D. [...] Hx Tablets 2mg 60tab take 1-3 Abby 2018 - s tabs by Edgar, 07/10/ mouth at 5 M.D. 2018 at night as directed Compression 04/25/ Hx Misc 1unit 20/30 s/p Abby Stockings 2018 - s left VALERIE; Edgar, 06/12/ thigh high M.D. 2018 Warfarin Sodium 04/17/ Hx Tablets 2mg 90tab [...] mouth 2-3 Edgar, 06/12/ times a M.D. 2018 day as needed Levothyroxine 12/14/ Hx Tablets [...] 90tab 1 po qd Allie 2012 - DR [place] prn Jimmy, M.D. 2016 Cyclobenzaprine 07/26/ Hx Tablets 5mg 30tab take 1-2 728.85 Nilda HCL 2012 tablet by Govind 12/14/ mouth at M.D. 2016 night as needed Oxycodone HCL 03/24/ Hx Tablets 5mg 60tab 1-2 po q Braeden 2012 - s 4-6 hrprn Nitesh 07/26/ pain M.D. 2012 Meloxicam 03/10/ Hx Tablets 7.5mg 60tab 1 po bid Allie 2012 s as needed Jimmy, 01/24/ for pain M.D. 2013 Levothyroxine 02/01/ Hx Tablets 100mcg 90tab 1 by mouth Nilda Sodium 2012 - every day Govind M.D. 2016 Cosyntropin 12/07/ Hx Solution 0.25mg/ml 1ml 250mcg Allie 2012 - IV/Im once Jimmy, 02/01/ M.D. 2012 Azithromycin 08/01/ Hx Tablets 250mg 6tabs two tabs 466.0 Marilee 2011 - day one, Macie, 12/02/ one daily M.D., FACP 2012 till gone Flovent HFA 08/01/ Hx Aerosol 44mcg/Act 1unit 2 puffs 466.0 Marilee 2011 - s twice Macie, 12/02/ daily for M.D., FACP 2013 10 days Guaifenesin ac 08/01/ Hx Syrup 100-10mg/ 100cc 1 tsp by 466.0 Marilee 2011 - 5ML mouth Macie, 12/02/ every day M.D., FACP 2012 every night as needed Erythromycin 07/15/ Hx Ointment 5mg/GM 3.500 apply to 373.11 Allie 2012 - gm eyelid Marquez, 07/26/ four times M.D. 2012 daily for 5 days. prn Levothyroxine 04/08/ Hx Tablets 88mcg 30tab 1 po qd Allie Sodium 2011 - s Jimmy, 02/01/ M.D. 2012 Cyclobenzaprine 09/02/ Hx Tablets 5mg 30tab take 1-2 728.85 Allie HCL 2011 tablet by Jimmy, 01/12/ mouth at M.D. 2012 night as needed Levothyroxine 0000/ Hx Tablets 50mcg 39tab 1 1/2 po Allie Sodium 0000 - s four times Marquez, 04/08/ a week, M.D. 2011 and 1 po three times a week Fish Oil / Hx Capsules 1000mg 30cap 2-3 po qd Unknown 0000 - s 2016 Glucosamine And /00/ Hx Capsules 1500/1200 2 po qd Unknown Chondrotin 0000 - mg 2011 Ibuprofen 00/ Hx Capsules 200mg prn Unknown 0000 - 2012 Glucosamine /00/ Hx Capsules 1500Com 1 po qd Unknown Chondroitin 1500 0000 - Complex 2013 Magnesium 00/ Hx Capsules 1 po qd Unknown 0000 - 2012 Percocet / Hx Tablets 5-325mg [...] Regadenoson, 018 Juan Carlos, 0.1 MG Thiago, FACBelem, FASNC Technetium TC Administered Injection Wilman Garibay 99M 018 Nimco RangelofThiago worrell, FACBelem, Per Unit Dose FASNC Up To 40 Millicuries Immunizations CPT Code Status Date Vaccine Reaction Lot # [id number] Given 05/31/2017 Influenza Virus Vaccine, no immediate reaction [id number] Quadrivalent, Split, noted Preservative Free 00117 Given 07/26/2013 Flu Vaccine Split Virus [id number] Preservative Free For Indiv 3Yr Older 81520 Given 05/18/2012 Influenza Virus 3Yrs & Over 32773 Given 07/15/2011 Tdap - [id number] Tetanus/Diptheria/Acellula r Pertussis 98736 Given 07/15/2011 Influenza Virus 3Yrs & [id number] Over Vital Signs Date Vital Result Comment 07/11/2018 9:31am Height 65 inches 5'5" Heart [...] Test Result H/L Range Note Inr/Protime 06/29/2018 [facility] Inr 1.06 High 0.77-1.02 [address] [place] [address] [phone] Inr/Protime 06/13/2018 [facility] Inr 0.98 N 0.77-1.[address] [place] [address] [phone] Laboratory test 06/13/2018 [facility] Partial 32.5 seconds N 26.0-36.[address] [place] [address] PTT [phone] Urinalysis 06/13/2018 [facility] Urine [place] [address] [phone] Urine Appearance Clear Urine Specific Herndon 1.004 Low 1.010-1.030 Urine pH 7.0 N [...] Present Abnormal Absent Type & Screen 06/13/2018 [facility] Patient Blood [place] [address] [phone] Antibody Screen NEGATIVE Urine Culture And 06/13/2018 [facility] Urine Culture SEE RESULT [address] [place] [address] [phone] CBC Auto Diff 06/13/2018 [facility] White Blood 4.4 10^3/uL N 3.5-[address] DR[address] Count .8 [place] [address] [phone] Red Blood Count 3.75 10^6/uL Low 4.00-5.40 [...] Cells % 0.1 Type & Screen 04/01/2018 [facility] Patient Blood Type A Positive [address] [place] [address] [phone] Antibody Screen NEGATIVE Xray 03/07/2018 [facility] MRI Lumbar <pending> [address] Spine W/O [place], [place] [id number] [phone] Laboratory test 05/17/2017 [facility] C Reactive < 1.00 mg/L N < 5.00 [address] [place] [address] [phone] Hla B27 12/14/2016 [facility] Hla B27 Negative N [address] [place] [address] [phone] Hla B27 Interp See Comment N 5 Laboratory test 12/14/2016 [facility] C Reactive < 1.00 N < 5.00 [address] Protein mg/[place] [address] [phone] Cyclic Citrullinated Pep Igg <15.6 U N 7 Rheumatoid Factor <15 IU/mL N <15 8 Uric Acid 4.7 mg/dL N 2.3-6.6 9 Erythrocyte Sed Rate 27 mm/Hr N 0-30 10 Cardiolipin 12/14/2016 [facility] Phospholipid Ab < 9.4 MPL N 11 Igg/Igm [address] IgM, [place] [address] [phone] Phospholipid Ab IgG < 9.4 GPL N 12 Laboratory test 01/25/2014 [facility] Hemoglobin A1c 6.0 % N Less than [address] 6[address]0 [place] [address] [phone] TSH (Thyroid Stimulating Horm) 1.73 IU/mL N 0.34-5.60 Basic Metabolic Panel 01/25/2014 [facility] Sodium 136 mmol/L N 133-[address] [place] [address] [phone] Potassium 3.7 mmol/L N 3.7-5.6 Chloride 102 mmol/L N 101-111 Co2 Carbon Dioxide 29 mmol/L N 22-32 Anion Gap 5 mmol/L N 2-11 Glucose 89 mg/dL N 70-100 Blood Urea Nitrogen 19 mg/dL N 6-24 Creatinine 0.69 mg/dL N 0.51-0.95 BUN/Creatinine Ratio 27.5 High 8-20 Calcium 9.4 mg/dL N 8.6-10.3 Egfr Non- 88.3 N >60 Egfr 113.6 N >60 14 Laboratory test 04/24/2013 [facility] TSH (Thyroid 0.42 0.34- 5.[address] Stimulating miu/[place] [address] [facility]) [phone] Sodium 128 mmol/L Low 133-145 Basic Metabolic 03/17/2013 [facility] Sodium 129 mmol/L Low 133-145 Panel [address] [place] [address] [phone] Potassium 4.1 mmol/L 3.5-5.0 Chloride 97 mmol/L Low 101-111 Co2 Carbon Dioxide 26.0 mmol/L 22-32 Anion Gap 6.0 mmol/L 2-11 Glucose 101 mg/dL High 70-100 Blood Urea Nitrogen 12 mg/dL 6-24 Creatinine 0.60 mg/dL 0.50-1.40 BUN/Creatinine Ratio 20.0 8-20 Calcium 9.5 mg/dL 8.1-9.9 Egfr Non- 104.2 >60 Egfr 134.0 >60 15 Laboratory test 03/08/2013 [facility] Sodium 133 mmol/L 133- 145 finding [address] [place] [address] [phone] Urine Osmolality 143 mOsm/kg Low 300-1000 Urine Random Sodium 17 mmol/L Osmolality Serum 280 mOsm/kg Low 281-297 Hemoglobin/Hematacrit 03/08/2013 [facility] Hemoglobin 12.9 12.0-16.[address] g/[place] [address] [phone] Hematocrit 38 % 35-47 Laboratory test 03/08/2013 [facility] Hemoglobin A1c 5.7 % Less than [address] [place] [address] [address] [place] [address] [phone] Laboratory test 03/08/2013 [facility] Uric Acid 4.0 mg/dL 2.6 -7.[address] [place] [phone] C Reactive Protein < 0.5 mg/dL Less than 0.5 Erythrocyte Sed Rate 21 mm/Hr 0-30 Rheumatoid Factor <15 IU/mL <15 17 Reyna (Anti-Nuclear AB) Screen Negative Negative Laboratory test 01/13/2013 [facility] Sodium 129 mmol/L Low 133-[address] [place] [phone] Urine Osmolality 126 mOsm/kg Low 300-1000 Urine Random Sodium 23 mmol/L Osmolality Serum 281 mOsm/kg 281-297 Laboratory test finding 01/13/2013 [facility] Cortisol 11.0 g/ dL [address] [place] [address] [phone] Acth 12 pg/mL 19 Laboratory test 12/13/2012 [facility] Cortisol 28.4 g/dL [address] [place] [address] [phone] Laboratory test 12/13/2012 [facility] Cortisol 20.6 g/dL [address] [place] [address] [phone] Laboratory test 12/13/2012 [facility] Cortisol 7.3 g/dL [address] [place] [address] [phone] Laboratory test 12/03/2012 [facility] TSH (Thyroid 3.53 miu/mL 0.34- finding [facility] [address] Stimulating 5.60 [place] [address] Horm) [phone] Basic Metabolic 12/03/2012 [facility] Sodium 127 mmol/L Low 133-[address] [place] [address] [phone] Potassium 4.5 mmol/L 3.5-5.0 Chloride 94 mmol/L Low 101-111 Co2 Carbon Dioxide 28.0 mmol/L 22-32 Anion Gap 5.0 mmol/L 2-11 Glucose 72 mg/dL 70-100 Blood Urea Nitrogen 11 mg/dL 6-24 Creatinine 0.60 mg/dL 0.50-1.40 BUN/Creatinine Ratio 18.3 8-20 Calcium 9.2 mg/dL 8.1-9.9 Egfr Non- 104.2 >60 Egfr 134.0 >60 23 Laboratory test 12/03/2012 [facility] Cortisol 6.4 g/dL [address] [place] [address] [phone] Laboratory test 09/07/2012 [facility] Osmolality 280 mOsm/kg Low 281-[address] Serum 97 [place] [address] [phone] Sodium 131 mmol/L Low 133-145 Urine Osmolality 132 mOsm/kg Low 300-1000 Urine Random Sodium 23 mmol/L Vitamin B12 475 pg/mL 180-941 Reyna (Anti-Nuclear AB) Screen Negative Negative C Reactive Protein < 0.5 mg/dL Less than 0.5 Erythrocyte Sed Rate 21 mm/Hr 0-30 Hemoglobin A1c 6.2 % High Less than 6.0 25 Laboratory test 09/07/2012 [facility] Sodium 131 mmol/L Low 133-[address] [place] [address] [phone] Osmolality Serum 280 mOsm/kg Low 281-297 Vitamin B12 475 pg/mL 180-919 C Reactive Protein < 0.5 mg/dL Less than 0.5 Laboratory test 09/07/2012 [facility] Hemoglobin A1c 6.2 % High Less [address] than 6[address]0 [place] [address] [phone] Laboratory test 06/29/2012 [facility] TSH (Thyroid 4.75 0.34- 5.[address] Stimulating MIU/ML 0 [place] [address] Horm) [phone] Sodium 131 mmol/L Low 133-145 Laboratory test 03/23/2012 [facility] TSH 2.83 MIU/ML 0.34- 5.[address] [place], [place] [phone] Thyroxine Free 0.81 ng/dL 0.61-1.24 Thyroid 03/23/2012 [facility] Thyroperoxidase 277.7 High Less Autoantibodies [address] Antibody IU/[place] [address] 9.0 [phone] Thyroglobulin AB Screen 525 IU/mL Abnormal <116 27 Comp Metabolic Panel 03/23/2012 [facility] Sodium 130 mmol/L Low 135-[address] [place] [address] [phone] Potassium 4.4 mmol/L 3.5-5.0 Chloride 96 mmol/L [...] 112.6 > 60 30 Laboratory test 03/23/2012 [facility] Troponin-I 0 NG/ML 0- 0.[address] [place] [address] [phone] Laboratory test 01/09/2012 [facility] Hemoglobin A1c 6.0 % Less Than 32, [address] [place] [address] [phone] Glucose 92 mg/dL 70-100 CBC Auto Diff 01/09/2012 [facility] White Blood 5.0 CUMM 4.8- 10.[address] [place] [address] [phone] Red Cell Count 3.44 CUMM Low 4.2-5.4 [...] Abs Basophils 0 0-0.2 Laboratory test 01/09/2012 [facility] Vitamin A 50.1 g/dL 32.5-78.0 [address] (Retinol) [place] [address] [phone] Vitamin D, 1,25 Dihydroxy 47 pg/mL 18-78 35 Laboratory test 09/02/2011 [facility] Osmolality 299 MOSMO High 281-[address] [place] [address] [phone] Sodium 133 mmol/L Low 135-145 Sodium Random Urine 46 mmol/L Osmolality Random Urine 236 MOSMO Low 300-1000 CBC Auto Diff 09/02/2011 [facility] White Blood 6.9 CUMM 4.8- 10.[address] [place] [address] [phone] Red Cell Count 3.58 CUMM Low 4.2-5.4 [...] Abs Basophils 0.1 0-0.2 Laboratory test 09/02/2011 [facility] Vitamin A 57.8 g/dL 32.5-78.0 [address] (Retinol) [place] [address] [phone] Vitamin D, 1,25 Dihydroxy 33 pg/mL 18-78 37 Laboratory test 08/24/2011 [facility] Hemoglobin A1c 5.8 % Less Than 38, [address] [place] [address] [phone] Sodium 130 mmol/L Low 135-145 CPK (Creatine Kinase) 253 U/L High 0-170 Lipid Panel - 07/16/2011 [facility] CPK (Creatine 259 U/L High 0-[address] Kinase) [place] [address] [phone] Comp Metabolic 07/16/2011 [facility] Sodium 127 Low 135-[address] mmol/[place] [address] [phone] Potassium 4.3 mmol/L 3.5-5.0 Chloride 94 mmol/L [...] 112.6 > 60 42 Lipid Profile 07/16/2011 [facility] Triglyceride 40 mg/dL 40- 200 (Trig/Chol/HDL) [address] [place] [address] [phone] Cholesterol 216 mg/dL High Less Than 200 43 High Density Lipoprotein 80 mg/dL High 40-60 44 Cholesterol/HDL Ratio 2.70 AVERAGE 1-4.44 Low Density Lipoprotein 128 mg/dL High Less Than 100 45 CBC Auto Diff 07/16/2011 [facility] White Blood 6.1 CUMM 4.8- 10.[address] [place] [address] [phone] Red Cell Count 3.61 CUMM Low 4.2-5.4 [...] Abs Basophils 0.1 0-0.2 Laboratory test 07/16/2011 [facility] Vitamin D, 1,25 40 pg/mL 18-[address] [place] [address] [phone] TSH 2.73 MIU/ML 0.34-5.60 Laboratory test 07/15/2011 [facility] Cytology <SEE [address] NOTE> [place] [address] [phone] 1 SEE RESULT BELOW Name: MAIRA HURLEY : [address]: Abby Hernández MD Acct: [id number] Unit: [id number] AGE: 58 Location: [facility] Re06/13/18 SEX: F Status: REG REF SPEC: [id number] LIV: 06/13/18-[address] [facility] [address]: Abby Hernández MD REQ: [id number] RECD: 06/13/18 STATUS: GEORGE MCKEON DR: Deepika Mazariegos MD _ SOURCE: URINE SPDESC: ORDERED: Urine Culture QUERIES: Urine Source: Clean Catch Procedure Result Reported Site Urine Culture Final 06/14/18- 1607 ML No Growth (<1,000 CFU/mL) * - Main Lab . END OF REPORT DEPARTMENT OF PATHOLOGY, [address] [place] [address] Yoan Paredes M.D. Director [facility] # [id number] 2 PAIN IN LEFT HIP, LOW BACK PAIN, UNILATERAL OSTEOA 3 Acute inflammation: >10.00 4 REFERENCE VALUE Not Applicable 5 RESULT: HLA-B27 antigen was not detected. ADDITIONAL INFORMATION Method: Flow Cytometry Performing Laboratory IA# [id number] Test Performed by: [place] [address] 6 Acute inflammation: >10.00 7 REFERENCE VALUE <20.0 (Negative) Test Performed by: [facility] [place] [address] 8 Test Performed by: [facility] [place] [address] 9 Please check today 10 Please check today 11 REFERENCE VALUE <15.0 (Negative) 12 REFERENCE VALUE <15.0 (Negative) Test Performed by: [address] [address] 13 Therapeutic target for the treatment of diabetes Mellitus patients is <7% HBA1C, and in selective patients <6.0%.Please refer to [employer] Diabetic care guidelines for further [...] and in selective patients <6.0%.Please refer to [place] [employer] Diabetic care guidelines for further information. 17 Test Performed by: [facility] [address] [place] [address] [employer]of[employer] Sales Representative: Smith Crespo III, M.D. 18 AM Cortisol 8.7-22.4 PM Cortisol Less than 10 19 -- REFERENCE VALUE -- 10-60 (a.m. collection) Test Performed by: [facility] [address] [place] [address] Roofing Sales Representative: Smith Crespo III, M.D. 20 AM Cortisol [...] and in selective patients <6.0%.Please refer to [employer] Diabetic care guidelines for further information. 26 Therapeutic target for the treatment of diabetes Mellitus patients is <7% HBA1C, and in selective patients <6.0%.Please refer to [employer] Diabetic care guidelines for further [...] cannot be used interchangeably. Test Performed by: [place] [address] [employer]of[employer] Sales Representative: Smith Crespo III, M.D. 28 Anion gap measurement may be of limited value in the presence of any alkalosis, especially in a combined acid base disorder. . 29 A metabolite of Naproxen, O-desmethylnaproxen, has been shown to interfere with the [place] method for measuring total bilirubin. Samples from [...] 0.06 ng/mL NOT SUPPORTIVE OF DIAGNOSIS OF DC 0.06 - 0.50 ng/ml INDETERMINATE: SUGGEST SERIAL STUDIES IF CLINICALLY INDICATED. Greater than 0.5 ng/mL CONSISTENT WITH DIAGNOSIS OF DC . 32 FASTING 33 THERAPEUTIC TARGET FOR THE TREATMENT OF DIABETES MELLITUS PATIENTS IS <7% HBA1C, AND IN SELECTIVE PATIENTS <6.0%. PLEASE REFER TO [employer] DIABETIC CARE GUIDELINES FOR FURTHER INFORMATION. 34 Test Performed by: [facility] [employer] [address] [place] [address] Roofing Sales Representative: Gracia Snowden, Ph.D. 35 Test Performed by: [place] [address] Roofing Sales Representative: Smith Crespo III, M.D. 36 Test Performed by: [facility] [employer] [address], [place] [address] Roofing Sales Representative: Gracia Snowden, Ph.D. 37 Test Performed by: [facility] Dpt of Lab Med and Pathology [address] [place] [address] Roofing Sales Representative: Smith Crespo III, M.D. 38 NON FASTING 39 THERAPEUTIC TARGET FOR THE TREATMENT OF DIABETES MELLITUS PATIENTS IS <7% HBA1C, AND IN SELECTIVE PATIENTS <6.0%. PLEASE REFER TO [employer] DIABETIC CARE GUIDELINES FOR FURTHER INFORMATION. 40 Anion gap measurement may be of limited value in the presence of any alkalosis, especially in a combined acid base disorder. . 41 A metabolite of Naproxen, O-desmethylnaproxen, has been shown to interfere with the [place] method for measuring total bilirubin. Samples from [...] than 189 MG/DL 46 Test Performed by: [facility] Dpt of Lab Med and Pathology [address] [place] [address] Roofing Sales Representative: Smith Crespo III, M.D. 47 ---- RUN DATE: 07/22/11 [facility] NMI LIVE PAGE 1 RUN TIME: 902 Specimen Inquiry RUN USER: INTERFACE -- Name: MAIRA HURLEY Status: REG REF Re07/15/11 Age/Sex: 51/F Unit#: [id number] Location: [facility] : 56 -- Specimen: [id number] SOUT Spec Date: 07/15/[address]: Allie [...] OR MALIGNANCY * NOTE Specimen sent to [facility] in [place], [place] on 07/16/11 by STACIE at 1207. Results will be reported separately in an addendum. ADDENDUM Addendum #1 Entered: 07/22/11-0854 [employer] Human Papilloma Virus test results received with preparation and diagnosis completed by [facility], [place], [place]. Results: NEGATIVE High Risk (for types 16, 18, 31, 33, 35, 39, 45, 51, 52, 56, 58, 59, 68) This test was developed and its performance characteristics determined by Laboratory Medicine and Pathology, [facility], [place], [place]. It has not been cleared or approved by the U.S. Food and Drug Administration. -- DEPARTMENT OF PATHOLOGY, [address] [place] [address] [facility] Permit #[id number] Yoan Paredes M.D. Director Ronald Barrientos M.D. [employer] Machine Tender evgeny -- -- RUN DATE: 07/22/11 [facility] NMI LIVE PAGE 2 RUN TIME: 902 Specimen Inquiry RUN USER: INTERFACE -- Name: MAIRA HURLEY Status: REG REF Re07/15/11 Age/Sex: 51/F Unit#: [id number] Location: [facility] : 56 -- -- CONTINUED -- ADDENDUM (Continued) Test Performed by: [facility] Dpt of lab Med and Pathology [address] [place], [place] [id number] Roofing Sales Representative: Smith Crespo III, M.D. Original hard copy report from [employer] is available upon request by calling Pathology at [phone]. Addendum Review Katie REYNOLDS([facility]) 07/22/11 -- This Pap test was evaluated with the assistance of the The ChaparPrep Pap Test Imaging System. The Pap Smear [...] three years. Initial evaluation performed by Katie REYNOLDS([facility]) 07/16/11 Final Interpretation electronically signed by: Katie REYNOLDS([facility]) 07/16/11 1303 -- -- DEPARTMENT OF PATHOLOGY, [address] [place] [address] [facility] Permit #[id number] Yoan Paredes M.D. Director Ronald Barrientos M.D. Bag Making Machine Tender Dir evgeny -- Procedures Date Code Description Status 06/23/2018 44495 THR Total Hip Replacement Completed 06/23/2018 96152 THR Total Hip Replacement Completed 04/14/2018 53547 THR Total Hip Replacement Completed 04/14/2018 26188 THR Total Hip Replacement Completed 03/29/2018 10219 Stress Test Completed 03/29/2018 62325 Myocardial Perfusion Imaging Tomographic (Spect) Completed Multiple Studies 03/09/2018 55598 EKG Tracing & Interpretation Completed 11/30/2017 43840 ECHO Transthoracic, Real-Time 2D With Doppler And Completed Color Flow 11/30/2017 50080 ECHO Transthoracic, Real-Time 2D With Doppler And Completed Color Flow 11/22/2017 89389 EKG Tracing & Interpretation Completed 12/21/2016 [id number] Bone Mineral Density Test Completed 11/06/2013 [id number] Mammogram Completed 06/16/2013 19388 Rad Exam; Ankle Comp Completed 04/24/2013 84865 Short Leg Cast Completed 04/11/2013 91911 Rad Exam; Ankle Limited Completed 04/03/2013 03383 Short Leg Cast Completed 03/21/2013 10982 ORIF Open TX Bimalleolar Ankle FX Includes Internal Completed Fixation 03/17/2013 28791 EKG Tracing & Interpretation Completed 02/10/2013 [id number] Mammogram Completed 09/07/2012 [id number] Mammogram Completed 07/14/2012 13592 Stress ECHO Interpretation/Report Hospital Completed 07/08/2012 36296 ECHO Transthorasic Realtime 2D W Doppler & Color Flow Completed Hosp 06/28/2012 12218 EKG Tracing & Interpretation Completed 03/18/2012 34425 EKG Tracing & Interpretation Completed 02/11/2012 [id number] Mammogram Completed 08/12/2011 [id number] Mammogram Completed 12/23/2009 [id number] Colonoscopy Completed 08/09/2008 [id number] Colonoscopy Completed Encounters Type Date Location Provider Dx Diagnosis Office Visit 06/26/2018 [facility] Karen Rice, E87.1 Hypo- osmolality and 8:44a Assoc,[employer] NETWORK SYSTEMS ANALYST hyponatremia Hospitalists Office Visit 06/25/2018 [facility] Halima Bey, E87.1 Hypo- osmolality and 8:43a robbie Merida M.D. hyponatremia Hospitalists Z96.651 Presence of right artificial knee joint E03.9 Hypothyroidism, unspecified Office Visit 05/09/2018 2:00p Orthopedic Abby Hernández Z47.1 Aftercare Services Of [place] following joint C.M.A. replacement surgery Z96.642 Presence of left artificial hip joint M25.551 Pain in right hip M16.11 Unilateral primary osteoarthritis, right hip Office Visit 04/16/2018 [facility] [place] E87.1 Hypo-osmolality and 11:28a Assoc,LEANDRA Jones hyponatremia Hospitalists R00.1 Bradycardia, unspecified E03.9 Hypothyroidism, unspecified I35.0 Nonrheumatic aortic (valve) stenosis Office Visit 04/15/2018 [facility] R00.1 Bradycardia, 11:28a Assoc,LEANDRA Gunter unspecified Hospitalists E87.1 Hypo-osmolality and hyponatremia I35.0 Nonrheumatic aortic (valve) stenosis E03.9 Hypothyroidism, unspecified Office Visit 04/14/2018 [facility] Liyah Morel R00.1 Bradycardia, 11:27a Assoc,robbie Bowling NP unspecified Hospitalists E87.1 Hypo-osmolality and hyponatremia I35.0 Nonrheumatic aortic (valve) stenosis Office 03/19/2018 [facility] Sonu Moss G56.31 Lesion of radial Visit 7:00a Phillip Ramey M.D. nerve, right upper limb Office 03/19/2018 [facility] Halima Bey G56.31 Lesion of radial Visit 1:07p robbie Merida M.D. nerve, right upper limb Office 03/18/2018 [facility] Javad R53.1 Weakness Visit 1:02p ,robbie Kelley II, M.D. Office 03/09/2018 [facility] Qutaybeh S. 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 M.D. 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 I35.0 Nonrheumatic 4:40p Cardiology [place] Maloney aortic (valve) stenosis R07.9 Chest pain, unspecified Office Visit 11/22/2017 10:20a [place] Camejo S. R07.9 Chest pain, Cardiology [facility] Maloney unspecified R94.31 Abnormal electrocardiogram [ECG] [EKG] Z01.810 Encounter for preprocedural cardiovascular examination Office Visit 05/31/2017 9:00a [facility] [place] M54.5 Low back Of Spreader Operator M.D. 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 M.D. 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 left hip M85.89 Oth disrd of bone density and structure, multiple sites Z79.1 jail (current) use of non-steroidal non-inflam (Nsaid) Office Visit 12/14/2016 10:00a Rheumatology [place] M25.552 Pain in Services Of [facility] M.D. left hip M41.34 Thoracogenic scoliosis, thoracic region M06.4 Inflammatory polyarthropathy I73.00 Raynaud's syndrome without gangrene M25.551 Pain in right hip Office Visit 01/24/2014 9:00a [facility] Internal Allie Marquez, 790.21 Impaired Medicine - M.D. Fasting Glucose Wiggins 244.9 Hypothyroidism Other Unspec 796.2 Blood Pressure Reading Elevated W/O Hypertension 276.1 Hyposmolality & Or Hyponatremia 786.2 Cough Office Visit 11/07/2013 10:00a [facility] Internal Allie Marquez, 786.2 Cough Medicine - M.D. Wiggins Office Visit 09/29/2013 11:00a Orthopedic Braeden 824.8 FX Ankle Unspec Services Of [facility] [place]ling Closed C.M.A. Office Visit 07/26/2013 9:40a [facility] Internal Allie Marquez, V70.0 Examination Medicine - M.D. [facility] Routine AT [facility] V76.10 Screening For Malignant Neoplasm Breast 790.21 Impaired Fasting Glucose 244.9 Hypothyroidism Other Unspec 796.2 Blood Pressure Reading Elevated W/O Hypertension V04.81 Need For Prophylactic Vaccination & Inoculation/Influenza 276.1 Hyposmolality & Or Hyponatremia 728.85 Spasm Muscle Office Visit 03/17/2013 1:20p [facility] Internal Allie Marquez, 729.5 Pain In Limb Medicine - M.D. Wiggins 790.21 Impaired Fasting Glucose 244.9 Hypothyroidism Other Unspec 276.1 Hyposmolality & Or Hyponatremia 786.59 Pain Chest Other Office Visit 03/17/2013 9:45a Orthopedic [place] 824.6 FX Ankle Services Of [place] Dowling Trimalleolar Closed C.M.A. Office Visit 03/10/2013 9:20a [facility] Internal Allie Marquez, 276.1 Hyposmolality & Or Medicine - M.D. Hyponatremia Wiggins 244.9 Hypothyroidism Other Unspec 836.0 Dislocation Knee Tear Of Medial Cartilage Or Meniscus Curren Office Visit 02/08/2013 3:30p Orthopedic Sam Puckett 836.0 Dislocation Knee Services Of [facility] Tear Of Medial C.M.A. Cartilage Or Meniscus Curren Office Visit 02/01/2013 8:40a [facility] Internal Allie Marquez, 276.1 Hyposmolality & Or Medicine - M.D. Hyponatremia Wiggins 244.9 Hypothyroidism Other Unspec 790.21 Impaired Fasting Glucose 611.9 Breast Disorders Unspec Office Visit 12/19/2012 9:40a [facility] Jose Marquez, 276.1 Hyposmolality & Or Medicine - M.D. Hyponatremia Wiggins 729.5 Pain In Limb Office Visit 12/02/2012 10:20a [facility] Jose Marquez, 244.9 Hypothyroidism Other Medicine - M.D. Unspec Wiggins 276.1 Hyposmolality & Or Hyponatremia 780.79 Malaise And Fatigue Other 729.5 Pain In Limb Office Visit 08/01/2012 10:40a [facility] Internal Marilee Macie, 466.0 Bronchitis Acute Medicine - M.D., FACP Wiggins Office Visit 07/15/2012 9:40a [facility] Internal Allie Marquez, 276.1 Hyposmolality & Or Medicine - M.D. Hyponatremia Wiggins 780.79 Malaise And Fatigue Other 244.9 Hypothyroidism Other Unspec 373.11 Hordeolum Externum 790.21 Impaired Fasting Glucose Office Visit 07/08/2012 12:30p [place] Gracia Sanchez, 427.31 Atrial Cardiology Of M.D. Fibrillation [facility] 285.9 Anemia Unspec Office Visit 06/28/2012 9:45a [place] [facility] Gracia Sanchez, 786.50 Pain Chest Of [facility] M.D. Unspec 427.89 Cardiac Dysrhythmia Other Office 05/18/2012 [facility] Internal Allie Marquez, V04.81 Need For Prophylactic Visit 10:40a Medicine - M.D. Vaccination & Wiggins Inoculation/Influenza 244.9 Hypothyroidism Other Unspec V04.81 Need For Prophylactic Vaccination & Inoculation/Influenza 733.6 Tietzes Disease 836.0 Dislocation Knee Tear Of Medial Cartilage Or Meniscus Curren 780.79 Malaise And Fatigue Other Office Visit 04/08/2012 11:40a [facility] Internal Allie Marquez, 244.9 Hypothyroidism Other Medicine - M.D. Unspec Wiggins 785.1 Palpitations 276.1 Hyposmolality & Or Hyponatremia Office Visit 03/18/2012 2:00p [facility] Internal Allie Marquez, 244.9 Hypothyroidism Other Medicine - M.D. Unspec Wiggins 785.1 Palpitations 786.59 Pain Chest Other Office Visit 01/13/2012 10:00a [facility] Internal Allie Marquez, 611.9 Breast Disorders Medicine - M.D. Unspec Wiggins V73.99 Screening Examination Viral Disease Unspec 244.9 Hypothyroidism Other Unspec 790.21 Impaired Fasting Glucose 728.85 Spasm Muscle 388.31 Tinnitus Subjective 369.70 Vision Low One Eye Impairment Level Not Further Spec Office Visit 09/02/2011 1:40p [facility] Internal Allie Marquez, 611.9 Breast Disorders Medicine - [place] Unspec Donnell 790.21 Impaired Fasting Glucose 244.9 Hypothyroidism Other Unspec 276.1 Hyposmolality & Or Hyponatremia 728.85 Spasm Muscle Office Visit 07/15/2011 DO Not Use Allie Marquez, V72.31 Routine Manager Safe 9:00a Alvin-Donnell Das Examination V76.2 Screening Malignant Neoplasm Cervix V76.10 Screening For Malignant Neoplasm Breast 244.9 Hypothyroidism Other Unspec V06.1 Stqlixmzeu-Tvkhhkl-Lnikhozj Combined (DTaP) V04.81 Need For Prophylactic Vaccination & Inoculation/Influenza Plan of Treatment Future Appointment(s):07/25/2018 10:45 am - Abby Hernández M.D. at [facility]..07/11/2018 - Abby Hernández M.D.M25.551 Pain in right hipFollow up:Follow up: 3 iipymR92.1 Aftercare following joint replacement surgery
[2018-07-28 13:57] LABS: ABS Basophils 0 10^3/ul (0-0.2); ABS Eosinophils 0.2 10^3/ul (0-0.6); ABS Monocytes 0.5 10^3/ul (0-0.8); ABS Neutrophils 2.4 10^3/ul (1.5-7.7); ABS Nucleated RBC 0 10^3/ul; Eosinophil % 3.2 %; Hematocrit 34 % (35-47); Hemoglobin 11.4 g/dl (12.0-16.0); Lymphocyte % 39.4 %; Mean Corpuscular HGB Conc 34 g/dl (31-36); Mean Corpuscular Hemoglobin 34 pg (27-31); Mean Corpuscular Volume 101 fL (80-97); Mean Platelet Volume 9.2 fL (7.4-10.4); Nucleated Red Blood Cells % 0.1; Platelet Count 219 10^3/ul (150-450); Red Blood Count 3.34 10^6/ul (4.00-5.40); Red Cell Distribution Width 15 % (10.5-15)
[2018-07-28 14:08] LABS: Activated Partial Thrombo Time 33.2 seconds (26.0-36.3); INR 1.1 (0.77-1.02)
[2018-07-28 14:20] LABS: Albumin 4.2 g/dL (3.2-5.2); Albumin/Globulin Ratio 1.5 (1-3); BUN/Creatinine Ratio 37.3 (8-20); Calcium 9.4 mg/dL (8.6-10.3); Globulin 2.8 g/dL (2-4); Potassium 4.2 mmol/L (3.5-5.0); Total Bilirubin 0.3 mg/dL (0.2-1.0)
[2018-07-28 14:55] VITALS: BP 135/72
== END 2018-07-28 14:50 | disposition home or self-care (01) ==
LOC: ED 12:16
DX: R42 Dizziness and giddiness (principal); R00.1 Bradycardia, unspecified; Z87.891 Personal history of nicotine dependence; E06.3 Autoimmune thyroiditis; G47.30 Sleep apnea, unspecified
CPT/HCPCS: 36415; 71045; 80053; 84484; 85025; 85610; 85730; 93005; 99283

== ENCOUNTER 2019-08-06 08:30 | Emergency (ER) | payer OTHER ==
--- NOTE | 2019-08-06 08:41 | ED ---
Skin Complaint - HPI Summary HPI Summary: Patient is a 59 y/o F presenting to the ED for a chief complaint of rash that began on 07/21/19. Patient reports the rash is on the sides of her mouth, right hip, bilateral LE, bilateral feet, and abdomen. She describes the rash as itchy and dry. The itching subsided after applying ringworm cream and Lotrimin. She believes she may have ringworm. She initially believed she had Lyme disease. Patient denies fever, headache, or myalgia. PMHx is significant for pre- diabetes and thyroid disease. FMHx is significant for cardiac disease, atrial fibrillation, AL, and DM. - History of Current Complaint Chief Complaint: EDRashSkinAbscess Stated Complaint: RASH Hx Obtained From: Patient Onset/Duration: Started Days Ago - 07/21/19, Atraumatic, Still Present Timing: Constant Onset Severity: Mild Current Severity: Mild Pain Intensity: 1 Pain Scale Used: 0-10 Numeric Skin Location: Face - Sides of the mouth, Abdomen, Leg - Bilateral, Foot - Bilateral, Other: - Right hip Aggravating Symptom(s): Nothing Alleviating Symptom(s): OTC Meds Associated Signs & Symptoms: Rash - Additional Pertinent History Primary Care Physician: [id number] - Allergy/Home Medications Allergies/Adverse Reactions: Allergies Allergy/AdvReac Type Severity Reaction Status Date / Time diclofenac Allergy Edema Verified 07/28/18 12:21 latex AdvReac Unknown See Comment Verified 07/28/18 12:21 Latex, Natural Rubber AdvReac Unknown See Comment Verified 07/28/18 12:21 Iodinated Contrast Media AdvReac sweating, Verified 07/28/18 12:21 [Iodinated Contrast- Oral nausea and IV Dye] ENVIRONMENTAL/ SEASONAL Allergy CONGESTION, Uncoded 07/28/18 12:21 RUNNY NOSE CLEANING CHEMICALS AdvReac SKIN GETS Uncoded 07/28/18 12:21 ENRIQUE PMH/Surg Hx/FS Hx/Imm Hx Previously Healthy: Yes Endocrine/Hematology History: Reports: Hx Thyroid Disease - PIPER'S DISEASE Denies: Hx Diabetes Cardiovascular History: Reports: Hx Angina, Other Cardiovascular Problems/ Disorders - TEST DONE FOR CHEST PAIN, NO PROBLEMS DETECTED, HAVE SEEN DR. ALSTON Denies: Hx Coronary Artery Disease, Hx Hypercholesterolemia, Hx Hypertension , Hx Myocardial Infarction, Hx Pacemaker/ICD, Hx Valvular Heart Disease Respiratory History: Reports: Hx Sleep Apnea - ?UNKNOWN PER PATIENT, Other Respiratory Problems/Disorders - UNABLE TO SLEEP ON BACK - WAKE UP GASPING FOR AIR Denies: Hx Asthma, Hx Chronic Obstructive Pulmonary Disease (COPD) History: Denies: Hx Renal Disease Musculoskeletal History: Reports: Hx Arthritis - OSTEOARTHRITIS, HANDS AND FINGER, Hx Scoliosis, Hx Tendonitis - 10 YEARS AGO ELBOWS, Other Musculoskeletal History - MUSCLE PAIN IN BACK FOR OVER 10 YEARS Denies: Hx Rheumatoid Arthritis, Hx Osteoporosis Sensory History: Reports: Hx Cataracts - BILATERAL, Hx Contacts or Glasses - GLASSES Denies: Hx Eye Injury, Hx Eye Prosthesis, Hx Glaucoma, Hx Legally Blind, Hx Macular Degeneration, Hx Vision Problem, Hx Deafness, Hx Hearing Aid Opthamlomology History: Reports: Hx Cataracts - BILATERAL, Hx Contacts or Glasses - GLASSES Denies: Hx Eye Injury, Hx Eye Prosthesis, Hx Glaucoma, Hx Legally Blind, Hx Macular Degeneration, Hx Vision Problem EENT History: Denies: Hx Deafness Neurological History: Denies: Hx Headaches, Other Neuro Impairments/Disorders Psychiatric History: Reports: Hx Anxiety - STRESS FACTORS Denies: Hx Panic Disorder - Cancer History Hx Chemotherapy: No Hx Radiation Therapy: No - Surgical History Surgical History: Yes Surgery Procedure, Year, and Place: BROKEN ANKLE RIGHT-WITH HARDWARE 2013 Hx Anesthesia Reactions: No - Immunization History Date of Tetanus Vaccine: Date of Influenza Vaccine: fall 2016 Infectious Disease History: No Infectious Disease History: Denies: Hx Clostridium Difficile, Hx Hepatitis, Hx Human Immunodeficiency Virus (HIV), Hx of Known/Suspected MRSA, Hx Shingles, Hx Tuberculosis, History Other Infectious Disease, Traveled Outside the [place] in Last 30 Days - Family History Known Family History: Positive: Cardiac Disease - CAD, AL, atrial fibrillation, Blood Disorder - Social History Occupation: Unemployed Alcohol Use: Rare Hx Substance Use: No Substance Use Type: Reports: None Hx Tobacco Use: Yes Smoking Status (MU): Former Smoker Amount Used/How Often: 1 PPD+ X OFF AND ON SINCE TEEN Have You Smoked in the Last Year: No Review of Systems Negative: Fever Negative: Myalgia Positive: Rash - Sides of the mouth, right hip, bilateral LE, bilateral feet, and abdomen Negative: Headache All Other Systems Reviewed And Are Negative: Yes Physical Exam - Summary Physical Exam Summary: General: Well appearing, no distress HEENT: PERRL Cardiovascular: Skin is well perfused Pulmonary: No respiratory distress, no tachypnea Abdomen: Non-distended Skin: Warm, pink, dry. Scaling plaque-like rash to the lateral right thigh, several scattered small erythematous and plaque lesions to bilateral LE. MSK: No edema Psych: Normal affect Neuro: A&Ox3 Triage Information Reviewed: Yes Vital Signs On Initial Exam: Initial Vitals Temp Pulse Resp BP Pulse Ox 97.5 F 59 18 177/74 100 08/06/19 08:35 08/06/19 08:35 08/06/19 08:35 08/06/19 08:35 08/06/19 08:35 Vital Signs Reviewed: Yes Procedures - Sedation Patient Received Moderate/Deep Sedation with Procedure: No Diagnostics - Vital Signs Vital Signs Temp Pulse Resp BP Pulse Ox 08/06/19 08:35 97.5 F 59 18 177/74 100 - Laboratory Lab Statement: Any lab studies that have been ordered have been reviewed, and results considered in the medical decision making process. Course/Dx - Course Course Of Treatment: 59 y/o F p/w puritic rash to legs. - PE w scaly lesion to R outer thigh, small scattered lesions to LE. - tried antifungal cream. History and timeline more c/w pityriasis rosea. - given Triamcinolone cream, advised to follow-up with dermatology if persistent symptoms. - Diagnoses Provider Diagnoses: Pityriasis rosea Discharge ED - Sign-Out/Discharge Documenting (check all that apply): Patient Departure - Discharge - Discharge Plan Condition: Stable Disposition: HOME Prescriptions: Triamcinolone 0.1% Cr 15gm -NF [Triamcinolone Acetonide] 15 gm TP BID PRN 7 Days #1 cream..g. PRN Reason: Itching Patient Education Materials: Pityriasis rosea (ED) Referrals: Deepika Calle MD [Primary Care Provider] - Additional Instructions: Your seen in the ER for a rash. You likely have pityriasis rosea. You can use a steroid cream applied near the lesions for itchiness. Please follow up with your primary care doctor. Please return for drainage from the wounds, fever, or if you're concerned. It was a pleasure taking care of you today. - Attestation Statements Document Initiated by Scribe: Yes Documenting Scribe: Mary Hernandez Provider For Whom Noele is Documenting (Include Credential): Vipin Farley MD Scribe Attestation: IMary, scribed for Vipin Farley MD on 08/06/19 at 0938. Status of Scribe Document: Ready
[2019-08-06 09:15] VITALS: BP 134/90
== END 2019-08-06 09:15 | disposition home or self-care (01) ==
LOC: ED 08:30
DX: L42 Pityriasis rosea (principal); E06.3 Autoimmune thyroiditis; F41.9 Anxiety disorder, unspecified; Z87.891 Personal history of nicotine dependence; Z88.8 Allergy status to other drugs, medicaments and biological substances; Z91.041 Radiographic dye allergy status; Z91.040 Latex allergy status
CPT/HCPCS: 99282